=== PATIENT | male | born 1965 | race Caucasian/White ===

== ENCOUNTER 2019-11-16 15:32 | Emergency (ER) | payer SELFPAY ==
--- NOTE | ~2019-11-16 | XR_ITS ---
EXAMINATION: XR chest 1V portable EXAM DATE: 11/16/2019 16:05 INDICATION: Right-sided facial numbness, neck pain. TECHNIQUE: Frontal PA chest x-ray. Comparison is made to prior examination from 04/15/2006. FINDINGS: The lungs are clear. There are no pleural effusions. The cardiomediastinal silhouette is within normal limits. There is no pneumothorax suspected. The bones and soft tissues are unremarkab le. IMPRESSION: Unremarkable chest x-ray exam. Reviewed, dictated and finalized at location A. R HAND
--- NOTE | ~2019-11-16 | CT_ITS ---
EXAMINATION: CT brain wo con EXAM DATE: 11/16/2019 15:59 INDICATION: Right-sided facial droop. Right hemiparesis. TECHNIQUE: Spiral CT of the head was performed without contrast. Axial, coronal and sagittal images were reviewed. The dose-length product (DLP) for this examination was 681.00 mGy-cm. The exposure w as tailored according to patient size, and iterative reconstruction (ASIR) was used as additional dos e reduction technique. There is no prior study for comparison. FINDINGS: There is no acute intraparenchymal hemorrhage. No evidence of intraparenchymal brain mass lesion. No evidence of acute infarction. There is no mass effect or midline shift. The ventricles are normal in size. There are no extra-axial collections. There are no acute calvarial fractures. T he orbits are unremarkable. Soft tissue is unremarkable. The visualized sinuses and mastoid air althea ls are well aerated. IMPRESSION: 1. No acute intracranial findings. Reviewed, dictated and finalized at location A. /SENIOR RESEARCH ASSOCIATE
[2019-11-16 15:38] VITALS: BP 146/101; PULSE 111; RESP 20; TEMP 36.4; O2SAT 96
--- NOTE | 2019-11-16 15:43 | ECG_ITS ---
Measurements Intervals [place] Rate: 106 P: 53 NE: 161 QRS: 121 QRSD: 81 T: 55 QT: 303 QTc: 403 Interpretive Statements SINUS TACHYCARDIA RIGHT AXIS DEVIATION CANNOT RULE OUT SEPTAL INFARCT, AGE INDETERMINATE ABNORMAL ECG Electronically Signed On 11-16-2019 17:35:03 POWER PLANT OPERATIONS MANAGER by Mark Renner D.O.
[2019-11-16 15:56] LABS: Basophils Absolute Auto 0.1 K/mm3 (0.0-0.1); Basophils Percent Auto 0.8 % (0.2-1.2); Eosinophils Absolute Auto 0.3 K/mm3 (0-0.3); Eosinophils Percent Auto 4.1 % (0-4.4); Hematocrit 52.6 % (42.0-52.0); Hemoglobin 17.4 g/dL (14.0-18.0); Immature Granulocyte Absolute 0.05 K/mm3 (0.00-0.031); Immature Granulocyte Percent A 0.8 % (0-0.5); Lymphocytes Absolute Auto 1.28 K/mm3 (0.9-3.2); Lymphocytes Percent Auto 20.3 % (18.3-44.2); Mean Corpuscular HGB Conc 33.1 g/dl (32-36); Mean Corpuscular Hemoglobin 31.2 pg (26-34); Mean Corpuscular Volume 94.4 fl (80-100); Mean Platelet Volume 8.9 fl (7.4-10.4); Monocytes Absolute Auto 0.5 K/mm3 (0.1-0.6); Monocytes Percent Auto 7.3 % (2.6-8.5); Neutrophils Absolute Auto 4.2 K/mm3 (1.3-6.7); Neutrophils Percent Auto 66.7 % (45.5-73.1); Platelet Count Result 151 k/mm3 (150-375); Red Blood Count 5.57 M/mm3 (4.6-6.20); Red Cell Distribution Width 13.3 % (11.5-14.5); White Blood Count 6.3 K/mm3 (4.5-10.0)
[2019-11-16 16:08] LABS: INR 1.1; Prothrombin Time 13.5 Seconds (11.1-14.7)
[2019-11-16 16:09] LABS: Partial Thromboplastin Time 26.4 SECONDS (22.3-36.8)
[2019-11-16 16:12] LABS: Blood Urea Nitrogen 8 mg/dL (9-20); Calcium 8.8 mg/dL (8.4-10.2); Carbon Dioxide 33 mmol/L (22-30); Chloride 97 mmol/L (98-107); Estimated CRCL calculation 117 ml/min; Estimated Glomerular Filt Rate > 60; Glucose 131 mg/dL (75-110); Potassium 4.3 mmol/L (3.4-5.0); Sodium 138 mmol/L (137-145)
[2019-11-16 16:24] LABS: Troponin I < 0.012 ng/mL (0.000-0.034)
--- NOTE | 2019-11-16 19:16 | ED.NEUROSD ---
HPI - Neuro Symptoms/Deficit General Chief Complaint: Neuro Symptoms/Deficit Stated Complaint: having a small stroke Time Seen by Provider: 11/16/19 19:05 Source: patient and RN notes reviewed Mode of arrival: ambulatory Limitations: no limitations History of Present Illness HPI Narrative: Pt is a 54 y/o male presenting to the ED c/o facial droop. Pt reports he first developed rt sided neck pain last Saturday along with watery eyes. Pt states he then developed a rt sided facial that worsened earlier today. Pt denies any focal weakness or numbness or tingling. He denies focal deficits. 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 Onset (ago): day(s) (2) Location: right face Associated symptoms: other (Rt sided neck pain) Related Data Allergies Allergy/AdvReac Type Severity Reaction Status Date / Time No Known Allergies Allergy Unknown Verified 12/09/11 07:04 Review of Systems Review of Systems: All systems reviewed & are unremarkable except as noted in HPI and below Musculoskeletal: Musculoskeletal: Reports neck pain (Rt sided) Integumentary/Breasts: Skin/Breast: Denies sores Neurologic: Denies focal weakness, Denies numbness, Denies weakness and Reports other (Rt sided facial droop) PMFSH Past Medical History Medical History No significant past medical history Surgical History Surgical History History of tonsillectomy Family History Family History Other Family history of coronary artery disease Family history of type 1 diabetes mellitus Hypertension Social History Social History Smoking status: Never smoker Alcohol intake: current Exam Narrative: Exam Narrative: GENERAL: Well-appearing, well-nourished, and in no acute distress. HEAD: Normocephalic, atraumatic EYES: PERRLA and EOMI, conjunctiva clear without discharge EARS: TM's clear bilaterally without erythema or dullness NOSE: Nares clear, no rhinorrhea or epistaxis THROAT:Mucous membranes moist, Oropharynx normal without erythema, exudate, peritonsillar swelling or fluctuance NECK: Supple, without lymphadenopathy or mass RESPIRATORY: No respiratory distress, Airway patent, Respirations non-labored, Clear to auscultation without rales, rhonchi or wheeze HEART: Regular rate and rhythm. No murmur heard. Normal peripheral pulses. ABDOMEN: Soft, nontender, nondistended, normal active bowel sounds. No masses. No rebound or guarding, No organomegaly. EXTREMITIES: Diffuse edema to all extremities, normal strength with full range of motion. SKIN: Warm, dry, normal color without rash NEURO: Alert and oriented x3. right facial droop including upper and lower, No focal deficits. PSYCH: Normal mood and affect. Neuro: General: patient oriented x3, gait normal, moves all extremities and no focal motor deficits Cranial nerves: Yes Equal, round and reactive pupils present and Yes Bilaterally intact EOM present Speech: normal speech Motor exam (neuro): 5/5 motor strength present throughout Course Vital Signs Vital signs: Vital Signs Temperature 97.6 F 11/16/19 15:38 Pulse Rate 111 H 11/16/19 15:38 Respiratory Rate 20 11/16/19 15:38 Blood Pressure 146/101 H 11/16/19 15:38 Pulse Oximetry 96 11/16/19 15:38 Temperature 97.6 F 11/16/19 15:38 Pulse Rate 94 11/16/19 19:30 Respiratory Rate 20 11/16/19 19:30 Blood Pressure 131/85 11/16/19 19:30 Pulse Oximetry 94 11/16/19 19:30 MDM - Neuro Symptoms/Deficit Lab Data Attestation: I reviewed the patient's lab results. Result diagrams: 11/16/19 15:50 11/16/19 15:50 Labs: Lab Results 11/16/19 11/16/19 11/16/19 Range
[2019-11-16 19:30] VITALS: BP 131/85; PULSE 94; RESP 20; O2SAT 94
== END 2019-11-16 19:55 | disposition home or self-care (01) ==
PROVIDERS: Family Medicine; Emergency Provider General Practice; PCP Family Medicine
DX: G51.0 Bell's palsy (principal); R00.0 Tachycardia, unspecified
CPT/HCPCS: 36415; 70450; 71045; 80048; 84484; 85025; 85610; 85730; 93005; 99284

== ENCOUNTER 2021-01-21 17:45 | Emergency (ER) | payer SELFPAY ==
--- NOTE | ~2021-01-21 | XR_ITS ---
XR knee RT 3V 01/21/2021 18:30 INDICATION: Right knee pain PROCEDURE: 4 views right knee COMPARISON: No prior studies for comparison FINDINGS: Fracture, dislocation or subluxation is not identified. No significant joint effusion. The soft tissues appear within normal limits. No foreign bodies are identified. IMPRESSION: 1: NO ACUTE BONE OR JOINT ABNORMALITY IDENTIFIED. Reviewed, dictated and finalized at location A.
[2021-01-21 17:49] VITALS: BP 162/78; PULSE 92; RESP 18; TEMP 36.4; O2SAT 98
--- NOTE | 2021-01-21 18:59 | ED.LOWEXIN ---
HPI - Extremity Injury (Lower) General Chief Complaint: Extremity Injury, Lower Stated Complaint: Right Knee Pain x3 weeks Time Seen by Provider: 01/21/21 17:54 History of Present Illness HPI Narrative: Patient is a 55-year-old male who presents ER with right knee pain. Reports has been ongoing for 3 weeks and is worse when he ambulates. He denies any trauma to the affected area. No redness or swelling. He is without fevers or chills or sweats. Reports he has some chronic back issues and prior to his knee hurting his back had been aggravated and he reports he is walking differently in an effort to alleviate discomfort in his back. That is likely what caused the pain. No previous surgery on the knee. Patient has chronic lymphedema to the lower extremities that is quite substantial. No new changes from that standpoint. Related Data Allergies Allergy/AdvReac Type Severity Reaction Status Date / Time No Known Allergies Allergy Unknown Verified 01/21/21 18:37 Review of Systems Review of Systems: All systems reviewed & are unremarkable except as noted in HPI and below Constitutional: Constitutional: Denies chills, Denies fever(s) and Denies weakness Cardiovascular: Cardiovascular: Denies chest pain, Denies rapid heart rate and Denies radiating jaw, neck or arm pain Respiratory: Respiratory: Denies cough and Denies dyspnea Musculoskeletal: Musculoskeletal: Reports back pain (chronic), Reports arthralgias, Denies joint swelling and Denies muscle cramps PMFSH Past Medical History Medical History (Updated 01/21/21 @ 19:06 by Jose Lagunas MD) Lymphedema No significant past medical history Surgical History Surgical History History of tonsillectomy Family History Family History Other Family history of coronary artery disease Family history of type 1 diabetes mellitus Hypertension Social History Social History Smoking status: Never smoker Alcohol intake: current Exam Narrative: Exam Narrative: GENERAL: Well-appearing, well-nourished, and in no acute distress. HEAD: Normocephalic, atraumatic. EXTREMITIES: Normal range of motion in the RLE without reproducible tenderness to knee. No redness. Massive lymphedema BLE with chronic skin changes. SKIN: Warm, dry, no rash. NEURO: No focal deficits. Alert and oriented x3. PSYCH: Normal mood and affect. Course Course Emergency Course: Informed of results. Will start Medrol Dosepak and give as needed Dallas for home. Needs to follow-up with a PCP for further treatment evaluation. Vital Signs Vital signs: Vital Signs Temperature 97.6 F 01/21/21 17:49 Pulse Rate 92 01/21/21 17:49 Respiratory Rate 18 01/21/21 17:49 Blood Pressure 162/78 H 01/21/21 17:49 Pulse Oximetry 98 01/21/21 17:49 Temperature 97.6 F 01/21/21 17:49 Pulse Rate 92 01/21/21 17:49 Respiratory Rate 18 01/21/21 17:49 Blood Pressure 162/78 H 01/21/21 17:49 Pulse Oximetry 98 01/21/21 17:49 MDM - Extremity Injury (Lower) Imaging Data Radiologist's impression: ITS Impressions Knee X-Ray 01/21/21 18:33 IMPRESSION: 1: NO ACUTE BONE OR JOINT ABNORMALITY IDENTIFIED. Discharge Plan Discharge Clinical Impression: Knee pain Patient Disposition: Home, Self-Care Condition: Stable Instructions: Knee Pain (ED) Additional Instructions: Your knee x-ray did not reveal any evidence of fracture or effusion to the knee. Take the Medrol dose pack to help decrease inflammation. Take [place] as needed for pain. You may elevate the leg and apply ice to help alleviate your discomfort. Follow-up with primary care for further treatment evaluation. Return the ER if you have chest pain with shortness of breath, you lose consciousness, you have additional concerns. Prescriptions: New methylprednisolone 4 mg tablet
[2021-01-21] MEDS: HYDROcodone/acetaminophen (*CRX) 10-325 MG TABLET 1 TAB PO (19:08)
[2021-01-21 19:49] VITALS: BP 153/100; PULSE 85; RESP 20; TEMP 36.7; O2SAT 99
== END 2021-01-21 19:49 | disposition home or self-care (01) ==
PROVIDERS: Emergency Provider Emergency Medicine; PCP Family Medicine
DX: M25.561 Pain in right knee (principal)
CPT/HCPCS: 73562; 99283; A9270

== ENCOUNTER 2022-12-03 18:26 | Inpatient (IN) | payer BC, SELFPAY ==
--- NOTE | ~2022-12-03 | XR_ITS ---
EXAM: XR tibia fibula RT 2V, XR tibia fibula LT 2V DATE: 12/03/2022 20:49 HISTORY: swelling . COMPARISON: Right knee 01/21/2021. FINDINGS: Normal mineralization. Moderate degenerative changes in the knees and ankles. No erosion, lytic or blastic lesion, or periosteal change. Scattered soft tissue calcifications, possibly vascula r. IMPRESSION: No acute osseous finding in the bilateral tibia or fibula. Reviewed, dictated and finalized at location K. TOLOGY TECHNICIAN IMPRESSION: No acute osseous finding in the bilateral tibia or fibula.
--- NOTE | ~2022-12-03 | XR_ITS ---
EXAMINATION: XR chest 2V Exam Date/Time: 12/03/2022 20:15 DATASTAGE ARCHITECT HISTORY: weakness Comparison: 11/16/2019. RESULT: Lines, tubes, and devices: None. Lungs and pleura: Grossly clear. Limited by body habitus. Cardiomediastinal silhouette: Stable. Other: No acute osseous or upper abdominal finding. IMPRESSION: No acute cardiopulmonary process. Reviewed, dictated and finalized at location K. STAGE ARCHITECT
[2022-12-03 18:38] VITALS: BP 139/90; PULSE 111; RESP 20; TEMP 36.9; O2SAT 94
[2022-12-03 19:03] LABS: Hematocrit 50.8 % (42.0-52.0); Mean Corpuscular HGB Conc 33.5 g/dl (32-36); Mean Corpuscular Hemoglobin 32.4 pg (26-34); Mean Corpuscular Volume 96.9 fl (80-100); Mean Platelet Volume 9.4 fl (7.4-10.4); Platelet Count Result 181 k/mm3 (150-375); Red Blood Count 5.24 M/mm3 (4.6-6.20); Red Cell Distribution Width 14.4 % (11.5-14.5); White Blood Count 15.3 K/mm3 (4.5-10.0)
[2022-12-03 19:14] LABS: Alanine Aminotransferase 26 U/L (6-50); Albumin Level 4.1 g/dL (3.5-5.1); Alkaline Phosphatase 191 U/L (38-126); Anion Gap 7 mmol/L (8-16); Aspartate Amino Transferase 50 U/L (17-59); Bilirubin,Total 2.1 mg/dL (0.2-1.3); Blood Urea Nitrogen 11 mg/dL (9-20); Calcium 8.6 mg/dL (8.4-10.2); Carbon Dioxide 29 mmol/L (22-30); Chloride 97 mmol/L (98-107); Estimated CRCL calculation 144 ml/min; Estimated Glomerular Filt Rate > 60; Glucose 155 mg/dL (65-110); Potassium 4.2 mmol/L (3.4-5.0); Sodium 133 mmol/L (137-145)
[2022-12-03 19:35] LABS: Band Neutrophils Percent 13 % (0-6); Lymphocytes Absolute Manual 1.22 K/mm3 (1.1-4.5); Monocytes Absolute Manual 1.22 K/mm3 (0.1-0.90); Monocytes Percent Manual 8 % (3-9); Neutrophils Absolute Manual 12.85 K/mm3 (1.3-6.7); Neutrophils Percent Manual 71 % (46-73); Platelet Estimate Adequate (Adequate); Schistocytes None Seen (NORMAL); Total Cells Counted 100
[2022-12-03 20:27] LABS: Lactic Acid Reflex 2.3 mmol/L (0.7-2.0)
[2022-12-03 20:57] LABS: CRP 16.9 mg/dL (<1.0)
--- NOTE | 2022-12-03 21:15 | ED.GENADULT ---
HPI - General Adult General Chief complaint: Unspecified Stated complaint: L arm redness/swelling Time Seen by Provider: 12/03/22 19:45 Source: patient and RN notes reviewed Mode of arrival: ambulatory Limitations: no limitations History of Present Illness HPI narrative: This is a 57 year old male with history of morbid obesity, lymphedema who presents for evaluation of left arm redness and swelling. Patient reports long history of bilateral leg lymphedema. He was referred to wound clinic with [facility] 4 months ago but he was unable to afford it so he stopped going. His leg are leaking fluids and they are red. He also has 2 ulcers to left calf that has been present for months. He came to ER because he developed redness and swelling to his left hand and left arm. He is worried because he has history staph infection. He also develop chills and body aches today. Related Data Home Medications Medication Instructions Recorded Confirmed No Home Medications 07/24/21 12/04/22 Allergies Allergy/AdvReac Type Severity Reaction Status Date / Time No Known Allergies Allergy Unknown Verified 12/04/22 01:42 [facility] Past Medical History Medical History BMI 60.0-69.9, adult Lymphedema No significant past medical history Screening for lipid disorders Screening for prostate cancer Surgical History Surgical History History of tonsillectomy Family History Family History (Updated 12/04/22 @ 01:41 by Lois Queen RN) Father Family history of coronary artery disease Hypertension Congestive heart failure Mother Family history of coronary artery disease Hypertension Other Family history of type 1 diabetes mellitus Social History Social History Smoking status: Never smoker Second hand tobacco smoke exposure: Yes Alcohol intake: current Drinks per week: 3 Substance use: never Substance use type: does not use Lack of Transportation: No Lack of Food: Never True Current Housing: I Have Housing Concerned About Future Housing: No Difficulty Paying Gas/Electric Bills: No Difficulty Paying for Meds: No Currently Unemployed: No Education: High School Diploma/GED Difficulty w/ Childcare or Family Care: No Spiritual care concerns: No Exam Const: General: cooperative and obese Nutritional Appearance: obese morbidly obese Orientation/consciousness: patient oriented x3 Limitations: no limitations HENMT: Head: normal to inspection Face and sinus: normal facial exam and face symmetric Mouth: Yes Normal oral and palatal mucosa present, Yes lip normal, Yes oropharynx normal and Yes moist mucous membranes Resp: Effort & Inspection: normal respiratory effort and able to speak in complete sentences Auscultation: clear to auscultation bilaterally Cardio: Jugular venous distension: no JVD Rate: tachycardic Rhythm: regular rhythm GI: GI Palp: Yes Soft to palpation and No Tenderness to palpation present (GI) Skin: Other: bilateral lower extremity with severe lymphedema, both legs with chronic skin changes thickening with venous stasis dermatitis with areas of erythema with leaking yellow, serous fluid, there are 2 ulcerations to left calf, left upper xtremity with left hand and left forearm erythema , swelling with streaking up arm to axilla Neuro: General: patient oriented x3, moves all extremities and no meningeal signs Cranial nerves: Yes CN's II-XII intact bilaterally Motor exam (neuro): 5/5 motor strength present throughout Extrem: General: full ROM Right upper extremity: edema (bilateral lymphedema) Other: left hand and left fore arm swelling with erythema , erythematous streaking up his left axilla;; Course Reevaluation(s) Reevaluation #1: Patient understands that he will be admitted for IV antibiotics. Aly
[2022-12-03] MEDS: HYDROcodone/acetaminophen (*CRX) 5-325 MG TABLET 1 TAB PO (22:52)
[2022-12-03 23:15] LABS: Reflex Lactic Acid Yes or No Add Lactic
[2022-12-03 23:19] VITALS: BP 150/72; PULSE 102; RESP 16; O2SAT 98
[2022-12-03] MEDS: SODIUM CHLORIDE 0.9% IV 1,000 ML 999 ML IV CONT (23:32)
[2022-12-03 23:33] LABS: Appearance Urine Clear (Clear); Bacteria Urine None Seen /hpf; Bilirubin Urine 1+ (Negative); Blood Urine Negative (Negative); Color Urine Dark Yellow (Yellow); Glucose Urine UA Negative (Negative); Ketones Urine Trace mg/dL (Negative); Leukocyte Esterase Ur Trace LEU/UL (Negative); Nitrate Urine Negative (Negative); Protein Urine 1+ mg/dL (Negative); RBC Urine 0-2 /hpf (0-2); Specific Grav Ur 1.026 (1.001-1.035); Squamous Epithelial Cell Urine None seen /hpf (Few); WBC Urine 0-5 /hpf; pH Urine 7.5 (5.0-9.0)
[2022-12-03 23:38] LABS: Add Urine Microscopic? YES
[2022-12-04 00:35] VITALS: BP 151/78; PULSE 100; RESP 16; O2SAT 94
[2022-12-04 01:00] VITALS: BP 154/85; PULSE 105; RESP 20; TEMP 37.1; O2SAT 98
--- NOTE | 2022-12-04 01:38 | ADMGEN ---
This patient, Madhu Leigh, was admitted to Medical Room 348-. Patient/family oriented to hospital policies and general routines including ID bracelet, bed and alarms, visiting hours, pain management, procedures, bathroom and other care routines, personal items, smoking policy, room service/diet, and visiting hours. Information on how to activate the Rapid Response Team has been discussed. Patient/Family are encouraged to report perceived risks to care and to ask questions if they do not understand what they are told or what they should do.
[2022-12-04 01:53] VITALS: BMI 62.4
[2022-12-04 01:57] VITALS: PULSE 105; RESP 20; O2SAT 98
[2022-12-04 02:18] LABS: Lactic Acid 1.4 mmol/L (0.7-2.0)
[2022-12-04 06:00] VITALS: BP 147/59; PULSE 105; RESP 18; TEMP 36.9; O2SAT 94
--- NOTE | 2022-12-04 06:00 | ECHO_ITS ---
Patient Info Name: Madhu Leigh Age: 57 years : 1965 Gender: Male Ht: 67 in Wt: 400 lbs BSA: 3.05 m2 HR: 110 bpm BP: 147 / 59 mmHg Technical Quality: Good Exam Date: 12/04/2022 2:13 PM Exam Location: [facility] Patient Status: Inpatient Admit Date: 12/03/2022 Staff Ordering Physician: Shasta Hopper MD Grain Combine Driver: Robby Proctor, [place]UGUST[place], RT Attending Provider: Arlyn Montano DO Referring Physician: Ruchi MCCLURE; Exam Type: CA echo dop color flow w con Study Info Indications R60.9 - Edema, unspecified Complete two-dimensional, color flow and Doppler transthoracic echocardiogram is performed with contrast to opacify the left ventricle and to improve the deliniation of the left ventricle endocardial borders. Summary 1. Left ventricular chamber dimension is normal. 2. Definity contrast administered improved wall motion interpretation. 3. Left ventricular systolic function is normal, estimated at 60-65%. 4. There is mild concentric increased left ventricular wall thickness. 5. The left ventricular diastolic function is abnormal. 6. E/e' 12 is mildly elevated. Left Ventricle E/e' 12 is mildly elevated. Definity contrast administered improved wall motion interpretation. Left ventricular chamber dimension is normal. Left ventricular systolic function is normal, estimated at 60-65%. There is mild concentric increased left ventricular wall thickness. The left ventricular diastolic function is abnormal. Right Ventricle Right ventricular systolic function is normal and with normal TAPSE 2.7 cm. Right ventricular chamber dimension is normal. Left Atria Left atrial chamber dimension is normal. Right Atria Right atrial chamber dimension is normal. Aortic Valve The aortic valve is probable trileaflet. There is no aortic valve stenosis. There is no aortic valve regurgitation. Pulmonic Valve There is no pulmonic regurgitation. Mitral Valve There is no mitral valve stenosis. There is no mitral valve regurgitation. Tricuspid Valve There is no tricuspid valve regurgitation. Pericardium/Pleural There is no pericardial effusion. Inferior Vena Cava Normal inferior vena cava with >50% collapse upon inspiration consistent with normal right atrial pressure, 5 mmHg. Aorta The aortic root size at the sinus of Valsalva is normal. Left Ventricular Outflow Tract Name Value Normal LVOT 2D LVOT Diameter 2.20 cm LVOT Doppler LVOT Peak Gradient 9 mmHg LVOT Mean Gradient 5 mmHg LVOT VTI 25.18 cm LVOT VTI/AV VTI Ratio 0.86 LVOT Stroke Volume 95.95 ml LVOT CO 10.69 l/min LVOT CI 3.51 L/min/m2 Mitral Valve Name Value Normal MV Doppler
[2022-12-04 06:17] LABS: Hematocrit 47.1 % (42.0-52.0); Hemoglobin 15.4 g/dL (14.0-18.0); Mean Corpuscular HGB Conc 32.7 g/dl (32-36); Mean Corpuscular Hemoglobin 31.9 pg (26-34); Mean Corpuscular Volume 97.5 fl (80-100); Platelet Count Result 144 k/mm3 (150-375); Red Blood Count 4.83 M/mm3 (4.6-6.20); Red Cell Distribution Width 14.3 % (11.5-14.5)
[2022-12-04 06:30] LABS: Alanine Aminotransferase 25 U/L (6-50); Albumin Level 3.5 g/dL (3.5-5.1); Alkaline Phosphatase 140 U/L (38-126); Anion Gap 3 mmol/L (8-16); Aspartate Amino Transferase 46 U/L (17-59); Bilirubin,Total 2.1 mg/dL (0.2-1.3); Blood Urea Nitrogen 10 mg/dL (9-20); Calcium 7.7 mg/dL (8.4-10.2); Carbon Dioxide 32 mmol/L (22-30); Chloride 99 mmol/L (98-107); Estimated CRCL calculation 163 ml/min; Estimated Glomerular Filt Rate > 60; Glucose 121 mg/dL (65-110); Potassium 3.9 mmol/L (3.4-5.0); Sodium 134 mmol/L (137-145)
[2022-12-04 07:56] LABS: Band Neutrophils Percent 11 % (0-6); Eosinophils Absolute Manual 0.12 K/mm3 (0.02-0.5); Eosinophils Percent Manual 1 % (0-4); Lymphocytes Absolute Manual 0.48 K/mm3 (1.1-4.5); Monocytes Percent Manual 5 % (3-9); Neutrophils Percent Manual 79 % (46-73); Platelet Estimate Adequate (Adequate); Total Cells Counted 100
[2022-12-04 07:57] LABS: Schistocytes None Seen (NORMAL)
[2022-12-04 08:41] LABS: Glucose Point of Care 135 mg/dl (65-105)
[2022-12-04 12:28] LABS: Glucose Point of Care 141 mg/dl (65-105)
[2022-12-04 14:00] VITALS: BP 128/62; PULSE 107; RESP 22; TEMP 36.3; O2SAT 96
[2022-12-04] MEDS: PERFLUTREN LIPID MICROSPHERES 1.5 ML VIAL DILUTED TO 10 ML TOTAL VOLUME IV PUSH (14:27)
--- NOTE | 2022-12-04 14:28 | IVDEFINITY ---
Prior to administration of IV Definity the patient was educated on the risks and benefits of the imaging enhancing agent including potential adverse side effects. The patient verbalized understanding. Allergies were verified. No exclusion criteria were identified and at least one of the following inclusion criteria were met: 1) physician request, 2) patient technically difficult to image (per the [place] [employer] guidelines of two or more segments not discernable within the apical view), or 3) questionable left ventricular function. ?
--- NOTE | 2022-12-04 15:04 | PM.IMHP ---
H&P: HPI History of Present Illness Date/Time: 12/04/22 15:04 Chief Complaint: Evaluation of left arm redness and swelling. Narrative: ED-HPI narrative: This is a 57 year old male with history of morbid obesity, lymphedema who presents for evaluation of left arm redness and swelling. ? Patient reports long history of bilateral leg lymphedema.? ? He was referred to wound clinic with [facility] 4 months ago but he was unable to afford it so he stopped going.? His leg are leaking fluids and they are red. He also has 2 ulcers to left calf that has been present for months. ? He came to ER because he developed redness and swelling to his. patient is morbidly obese with BMI of 52 his left arm, wrist and hand are edematous, erythematous with red streak running on medial aspect of upper arm close to axialla, patient has difficulty with ROM of the arm, suspect patient has a cellulitis patient was started on Zosyn and vancomycin, blood cultures are ordered, will continue to monitor will have a PT OT evaluate the patient and further recommendation to follow. patient admitted inpatient with cellulitis of upper extremity the lymphoadenitis, patient will stay in the hospital for 2 midnights Review of Systems Review of Systems: All systems reviewed & are unremarkable except as noted in HPI and below Constitutional: Constitutional: Denies chills, Denies fever(s) and Denies weakness Cardiovascular: Cardiovascular: Denies chest pain, Denies rapid heart rate and Denies radiating jaw, neck or arm pain Respiratory: Respiratory: Denies cough and Denies dyspnea Musculoskeletal: Musculoskeletal: Reports back pain (chronic), Reports arthralgias, Denies joint swelling and Denies muscle cramps PMFSH Past Medical History Medical History BMI 60.0-69.9, adult Lymphedema No significant past medical history Screening for lipid disorders Screening for prostate cancer Surgical History Surgical History History of tonsillectomy Family History Family History (Updated 12/04/22 @ 01:41 by Lois Queen RN) Father Family history of coronary artery disease Hypertension Congestive heart failure Mother Family history of coronary artery disease Hypertension Other Family history of type 1 diabetes mellitus Social History Social History Smoking status: Never smoker Second hand tobacco smoke exposure: Yes Alcohol intake: current Drinks per week: 3 Substance use: never Substance use type: does not use Lack of Transportation: No Lack of Food: Never True Current Housing: I Have Housing Concerned About Future Housing: No Difficulty Paying Gas/Electric Bills: No Difficulty Paying for Meds: No Currently Unemployed: No Education: High School Diploma/GED Difficulty w/ Childcare or Family Care: No Spiritual care concerns: No Meds Home Medications and Allergies Home Medications Medication Instructions Recorded Confirmed Type No Home Medications 07/24/21 12/04/22 History Allergies Allergy/AdvReac Type Severity Reaction Status Date / Time No Known Allergies Allergy Unknown Verified 12/04/22 01:42 Vital Signs Vital Signs - 24 hr 12/03/22 18:38 12/03/22 23:19 12/04/22 00:35 Temperature 98.5 F Pulse Rate 111 H 102 H 100 Respiratory Rate 20 16 16 Blood Pressure 139/90 150/72 H 151/78 H Pulse Oximetry 94 98 94 Oxygen Delivery Room Air 12/04/22 01:57 12/04/22 01:00 12/04/22 06:00 Temperature 98.7 F 98.4 F Pulse Rate 105 H 105 H 105 H Respiratory Rate 20 20 18 Blood Pressure 154/85 H 147/59 H Pulse Oximetry 98 98 94 Oxygen Delivery Room Air 12/04/22 08:00 12/04/22 14:00 Temperature 97.4 F L Pulse Rate 107 H Respiratory Rate 22 H Blood Pressure 128/62 Pulse Oximetry 96 Oxygen Delivery Room Air Exam Narra
[2022-12-04] MEDS: SILVERGEL (ELTA) 45 ML 1 APPLIC TOPICAL (16:34)
[2022-12-04 16:45] LABS: Glucose Point of Care 137 mg/dl (65-105)
[2022-12-04 19:59] VITALS: BP 130/63; PULSE 105; RESP 20; TEMP 36.6; O2SAT 94
[2022-12-04 21:08] LABS: Glucose Point of Care 117 mg/dl (65-105)
[2022-12-04] MEDS: HYDROcodone/acetaminophen (*CRX) 5-325 MG TABLET 1 TAB PO (23:31)
[2022-12-05 05:11] VITALS: BP 134/68; PULSE 107; RESP 20; TEMP 36.6; O2SAT 92
[2022-12-05] MEDS: HYDROcodone/acetaminophen (*CRX) 5-325 MG TABLET 1 TAB PO ×4 (08:31→21:41)
[2022-12-05] MEDS: SILVERGEL (ELTA) 45 ML 1 APPLIC TOPICAL (08:32)
[2022-12-05 08:57] LABS: Glucose Point of Care 150 mg/dl (65-105)
[2022-12-05 09:05] LABS: Hematocrit 48.4 % (42.0-52.0); Hemoglobin 15.6 g/dL (14.0-18.0); Mean Corpuscular HGB Conc 32.2 g/dl (32-36); Mean Corpuscular Hemoglobin 32.6 pg (26-34); Mean Platelet Volume 9.2 fl (7.4-10.4); Platelet Count Result 168 k/mm3 (150-375); Red Blood Count 4.79 M/mm3 (4.6-6.20); Red Cell Distribution Width 14.5 % (11.5-14.5); White Blood Count 11.2 K/mm3 (4.5-10.0)
[2022-12-05 09:14] LABS: Anion Gap 4 mmol/L (8-16); Blood Urea Nitrogen 11 mg/dL (9-20); Calcium 8.1 mg/dL (8.4-10.2); Carbon Dioxide 31 mmol/L (22-30); Chloride 99 mmol/L (98-107); Estimated CRCL calculation 163 ml/min; Estimated Glomerular Filt Rate > 60; Glucose 154 mg/dL (65-110); Magnesium 2.1 mg/dL (1.6-2.3); Potassium 3.7 mmol/L (3.4-5.0); Sodium 134 mmol/L (137-145)
[2022-12-05 09:53] LABS: Vancomycin Trough 9.7 ug/mL (10.0-20.0)
[2022-12-05 12:13] LABS: Glucose Point of Care 160 mg/dl (65-105)
--- NOTE | 2022-12-05 12:36 | PM.IMPN ---
Progress Note: A&P Assessment and Plan (1) Lymphedema: Code(s): I89.0 - Lymphedema, not elsewhere classified Status: Acute Assessment and Plan: PT OT to evaluate (2) Cellulitis of left upper extremity: Code(s): L03.114 - Cellulitis of left upper limb Status: Acute Assessment and Plan: iv abx await sens (3) BMI 60.0-69.9, adult: Code(s): Z68.44 - Body mass index [BMI] 60.0-69.9, adult Status: Acute Assessment and Plan: will consult dietitian Subjective Date/time seen: 12/05/22 12:36 no new complaints Exam Narrative: morbidly obese Patient is comfortable, NAD HEENT: eyes are clear and none icteric LUNGS: normal respiratory effort ABD: obese distended Lower extremities: edema SKIN: nonjaundiced, left upper arm, had and wrist edema, erythema, and red streak along medial aspect to axilla. Neuro: grossly intact. Objective Data Vital Signs Vital Signs: Vital Signs - 24 hr 12/04/22 14:00 12/04/22 19:59 12/05/22 05:11 Temperature 97.4 F L 97.8 F 98 F Pulse Rate 107 H 105 H 107 H Respiratory Rate 22 H 20 20 Blood Pressure 128/62 130/63 134/68 Pulse Oximetry 96 94 92 Oxygen Delivery 12/05/22 08:30 Temperature Pulse Rate Respiratory Rate Blood Pressure Pulse Oximetry Oxygen Delivery Room Air Intake/Output Intake/Output: Intake & Output 12/02/22 12/03/22 12/04/22 12/05/22 23:59 23:59 23:59 23:59 Intake Total 300 4110 1340 Output Total 1750 600 Balance 300 2360 740 Meds/Results Medications: Active Medications Generic Name Dose Route Start Last Admin Trade Name Freq PRN Reason Stop Dose Admin Hydrocodone Bitart/Acetaminophen 1 tab 12/04/22 22:35 12/05/22 08:31 Hydrocodone/Acetaminophen (*Crx) 5-325 Mg Tablet PO 1 tab Q4H PRN Administration Pain Rated 4-6 Piperacillin/Tazobactam/Dextrose 3.375 gm in 50 mls @ 100 mls/hr 12/04/22 03:00 12/05/22 09:02 Zosyn 3.375 Gm/D5w 50ml Pm IVPB 12/05/22 17:00 Infused Q6H MACK Infusion Piperacillin/Tazobactam/Dextrose 3.375 gm in 50 mls @ 100 mls/hr 12/05/22 21:00 Zosyn 3.375 Gm/Ns 50 Ml IVPB Q6H MACK Vancomycin HCl 1,500 mg in 500 mls @ 250 mls/hr 12/05/22 10:00 12/05/22 10:54 Vancomycin 1,500 Mg/D5w 500 Ml IVPB 250 mls/hr Q8H MACK Administration Miconazole Nitrate 1 applic 12/04/22 09:00 12/05/22 08:32 Miconazole 2% Antifungal Ointment 56 Gm TOPICAL 1 applic DAILY MACK Administration Ondansetron HCl 4 mg 12/03/22 22:57 Ondansetron Inj 4 Mg/2 Ml Vial IV PUSH Q4H PRN Nausea Silver Nitrate 1 applic 12/04/22 09:00 12/05/22 08:32 Silvergel (Elta) 45 Ml TOPICAL 1 applic DAILY MACK Administration Radiology Results: ITS Impressions Chest X-Ray 12/03/22 21:08 IMPRESSION: No acute cardiopulmonary process. Tibia/Fibula X-Ray 12/03/22 21:12 IMPRESSION: No acute osseous finding in the bilateral tibia or fibula. Tibia/Fibula X-Ray 12/03/22 21:12 IMPRESSION: No acute osseous finding in the bilateral tibia or fibula. Labs Labs: Laboratory Results - last 24 hr 12/04/22 12/04/22 12/05/22 16:43 20:03 08:52 WBC RBC Hgb Hct MCV MCH MCHC RDW Plt Count MPV Sodium Potassium Chloride Carbon Dioxide Anion Gap BUN Creatinine Estim Creat Clear Calc Estimated GFR Glucose POC Capillary Glucose 137 H 117 H 150 H Calcium Magnesium Vancomycin Trough 12/05/22 12/05/22 12/05/22 08:58 08:58 08:58 WBC 11.2 H RBC 4.79 Hgb 15.6 Hct 48.4 MCV 101.0 H MCH 32.6 MCHC 32.2 RDW 14.5 Plt Count 168 MPV 9.2 Sodium 134 L Potassium 3.7 Chloride 99 Carbon Dioxide 31 H Anion Gap 4 L BUN 11 Creatinine 0.70 Estim Creat Clear Calc 163 Estimated GFR > 60 Glucose 154 H POC Capillary Glucose Calcium 8.1 L Magnesium 2.1 Vanc
[2022-12-05 14:00] VITALS: BP 159/74; PULSE 106; RESP 18; TEMP 36.3; O2SAT 92
[2022-12-05 17:10] LABS: Glucose Point of Care 201 mg/dl (65-105)
[2022-12-05 20:00] VITALS: PULSE 99; RESP 22; O2SAT 93
[2022-12-05 20:53] VITALS: BP 153/66; PULSE 99; RESP 22; TEMP 36.6; O2SAT 93
[2022-12-05] MEDS: PIPERACILLN/TAZ 3.375GM/NS50ML 3.375 GM/50 ML BAG IVPB (21:10)
[2022-12-05 21:32] LABS: Glucose Point of Care 134 mg/dl (65-105)
[2022-12-06] VITALS (22 sets, daily range): BP systolic 129–180; BP diastolic 62–95; PULSE 92–121; RESP 16–20; TEMP 36.3–37.4; O2SAT 91–100
[2022-12-06] MEDS: HYDROcodone/acetaminophen (*CRX) 5-325 MG TABLET 1 TAB PO ×4 (01:55→20:58)
[2022-12-06] MEDS: PIPERACILLN/TAZ 3.375GM/NS50ML 3.375 GM/50 ML BAG IVPB ×2 (04:10→09:10)
[2022-12-06 08:33] LABS: Glucose Point of Care 124 mg/dl (65-105)
[2022-12-06] MEDS: SILVERGEL (ELTA) 45 ML 1 APPLIC TOPICAL (09:10)
[2022-12-06 09:46] LABS: Basophils Percent Auto 0.5 % (0.2-1.2); Eosinophils Absolute Auto 0.5 K/mm3 (0-0.3); Eosinophils Percent Auto 5.9 % (0-4.4); Hematocrit 47.9 % (42.0-52.0); Hemoglobin 15.3 g/dL (14.0-18.0); Immature Granulocyte Absolute 0.05 K/mm3 (0.00-0.031); Immature Granulocyte Percent A 0.6 % (0-0.5); Lymphocytes Absolute Auto 0.95 K/mm3 (0.9-3.2); Lymphocytes Percent Auto 11.5 % (18.3-44.2); Mean Corpuscular HGB Conc 31.9 g/dl (32-36); Mean Corpuscular Hemoglobin 31.9 pg (26-34); Mean Corpuscular Volume 99.8 fl (80-100); Mean Platelet Volume 9.1 fl (7.4-10.4); Monocytes Percent Auto 11.5 % (2.6-8.5); Neutrophils Absolute Auto 5.8 K/mm3 (1.3-6.7); Platelet Count Result 179 k/mm3 (150-375); Red Cell Distribution Width 14.6 % (11.5-14.5); White Blood Count 8.3 K/mm3 (4.5-10.0)
[2022-12-06 09:52] LABS: Anion Gap 3 mmol/L (8-16); Blood Urea Nitrogen 10 mg/dL (9-20); Calcium 8.1 mg/dL (8.4-10.2); Carbon Dioxide 32 mmol/L (22-30); Chloride 96 mmol/L (98-107); Estimated CRCL calculation 163 ml/min; Estimated Glomerular Filt Rate > 60; Glucose 115 mg/dL (65-110); Magnesium 2.1 mg/dL (1.6-2.3); Potassium 3.9 mmol/L (3.4-5.0); Sodium 131 mmol/L (137-145)
[2022-12-06 09:57] LABS: Vancomycin Trough 12.7 ug/mL (10.0-20.0)
--- NOTE | 2022-12-06 11:29 | PM.IMPN ---
Progress Note: A&P Assessment and Plan (1) Lymphedema: Code(s): I89.0 - Lymphedema, not elsewhere classified Status: Acute Assessment and Plan: PT OT to evaluate (2) Cellulitis of left upper extremity: Code(s): L03.114 - Cellulitis of left upper limb Status: Acute Assessment and Plan: iv abx await sens + blood cultures as well Surgery to eval (3) BMI 60.0-69.9, adult: Code(s): Z68.44 - Body mass index [BMI] 60.0-69.9, adult Status: Acute Assessment and Plan: will consult dietitian Subjective Date/time seen: 12/06/22 11:29 No improvement in left hand. Exam Narrative: morbidly obese Patient is comfortable, NAD HEENT: eyes are clear and none icteric LUNGS: normal respiratory effort ABD: obese distended Lower extremities: edema SKIN: nonjaundiced, left upper arm, had and wrist edema, erythema, and red streak along medial aspect to axilla. Neuro: grossly intact. Objective Data Vital Signs Vital Signs: Vital Signs - 24 hr 12/05/22 14:00 12/05/22 20:53 12/05/22 20:00 Temperature 97.3 F L 97.9 F Pulse Rate 106 H 99 99 Respiratory Rate 18 22 H 22 H Blood Pressure 159/74 H 153/66 H Pulse Oximetry 92 93 93 Oxygen Delivery Room Air 12/06/22 05:21 12/06/22 09:00 Temperature 97.9 F Pulse Rate 98 Respiratory Rate 18 Blood Pressure 145/64 H Pulse Oximetry 92 Oxygen Delivery Room Air Intake/Output Intake/Output: Intake & Output 12/03/22 12/04/22 12/05/22 12/06/22 23:59 23:59 23:59 23:59 Intake Total 300 4110 3340 1320 Output Total 1750 600 Balance 300 2360 2740 1320 Meds/Results Medications: Active Medications Generic Name Dose Route Start Last Admin Trade Name Freq PRN Reason Stop Dose Admin Hydrocodone Bitart/Acetaminophen 1 tab 12/04/22 22:35 12/06/22 05:56 Hydrocodone/Acetaminophen (*Crx) 5-325 Mg Tablet PO 1 tab Q4H PRN Administration Pain Rated 4-6 Piperacillin/Tazobactam/Dextrose 3.375 gm in 50 mls @ 100 mls/hr 12/05/22 21:00 12/06/22 09:40 Zosyn 3.375 Gm/Ns 50 Ml IVPB Infused Q6H MACK Infusion Vancomycin HCl 1,750 mg in 500 mls @ 250 mls/hr 12/06/22 11:00 Vancomycin 1,750 Mg/D5w 500 Ml IVPB Q8H MACK Miconazole Nitrate 1 applic 12/04/22 09:00 12/06/22 09:10 Miconazole 2% Antifungal Ointment 56 Gm TOPICAL 1 applic DAILY MACK Administration Ondansetron HCl 4 mg 12/03/22 22:57 Ondansetron Inj 4 Mg/2 Ml Vial IV PUSH Q4H PRN Nausea Silver Nitrate 1 applic 12/04/22 09:00 12/06/22 09:10 Silvergel (Elta) 45 Ml TOPICAL 1 applic DAILY MACK Administration Radiology Results: ITS Impressions Chest X-Ray 12/03/22 21:08 IMPRESSION: No acute cardiopulmonary process. Tibia/Fibula X-Ray 12/03/22 21:12 IMPRESSION: No acute osseous finding in the bilateral tibia or fibula. Tibia/Fibula X-Ray 12/03/22 21:12 IMPRESSION: No acute osseous finding in the bilateral tibia or fibula. Labs Labs: Laboratory Results - last 24 hr 12/05/22 12/05/22 12/05/22 12:10 17:05 20:57 WBC RBC Hgb Hct MCV MCH MCHC RDW Plt Count MPV Immature Gran % (Auto) Neut % (Auto) Lymph % (Auto) [place] % (Auto) Eos % (Auto) Baso % (Auto) Lymph # (Auto) [place] # (Auto) Eos # (Auto) Baso # (Auto) Abs Immat Gran (auto) Absolute Neuts (auto) Absolute Nucleated RBC Nucleated RBC % Sodium Potassium Chloride Carbon Dioxide Anion Gap BUN Creatinine Estim Creat Clear Calc Estimated GFR Glucose POC Capillary Glucose 160 H 201 H 134 H Calcium Magnesium Vancomycin Trough 12/06/22 12/06/22 12/06/22 08:30 09:19 09:19 WBC RBC Hgb Hct MCV MCH MCHC RDW Plt Count MPV Immature Gran % (Auto) Neut % (Auto) Lymph % (Auto) Gladwin % (Auto) Eos % (Auto) Baso % (Auto)
--- NOTE | 2022-12-06 11:35 | PM.CNGS ---
Assessment and Plan Assessment and plan (1) Cellulitis of left upper extremity: Code(s): L03.114 - Cellulitis of left upper limb Status: Acute Assessment and Plan: Spreading left hand cellulitis now extending up the left arm regardless of broad-spectrum IV antibiotics. There is no obvious abscess on exam and no open wounds to the left upper extremity. We do not do any hand surgery and would recommend that he be evaluated by a hand surgeon. If there is no available hand surgeon to evaluate the patient here at [facility], then he would need to be transferred to a tertiary care facility where they would be available. It would probably be best to transfer to [place] where he was getting his previous lymphedema treatment if possible. Will sign off at this time and please let us know if you have any surgical questions. (2) Lymphedema: Code(s): I89.0 - Lymphedema, not elsewhere classified Status: Acute Assessment and Plan: Open ulcers of the bilateral lower extremities that appear stable. No indication for any surgical intervention. Continue local wound care and elevation of lower extremities. Could consider compression when able to tolerate with his wounds. (3) Sepsis: Code(s): A41.9 - Sepsis, unspecified organism Status: Acute (4) BMI 60.0-69.9, adult: Code(s): Z68.44 - Body mass index [BMI] 60.0-69.9, adult Status: Acute Plan I have discussed the patient's case and plan of care with Dr. Zapata. History of Present Illness Consult details Consult date: 12/06/22 Reason for consult: other (Left upper extremity cellulitis) Requesting physician: Reyes Francisco MD Narrative: This is a 57-year-old morbidly obese man with a history of lymphedema, who was admitted 3 days ago for left upper extremity cellulitis. He reports waking up 4 days ago with redness and swelling in his left hand. He denies any trauma, wound, or abrasions to the left upper extremity. Throughout the day, his redness and swelling began to spread up his lower arm. Therefore, he presented to the ER for evaluation. He additionally has lymphedema and deals with chronic intermittent ulcers on his lower extremities. He did have an x-ray of the right lower leg that showed no acute osseous finding. [place] was [place] [address] [place] admission. He was admitted to the hospitalist service and started on IV Zosyn and vancomycin. Wound care was consulted for his lower extremity wounds and lymphedema. They have been applying antifungal barrier cream and silver gel while keeping the legs open to air. His initial blood cultures showed growth of group a Streptococcus. He has since had repeat blood cultures currently no growth to date. His cellulitis has apparently continued to worsen and spread up the left upper arm. Our service was consulted today for the worsening cellulitis. He is now seen on the medical floor. He reports that his cellulitis has spread up his arm daily. He has not noticed any improvement. He has limited range of motion of his fingers and wrist due to the swelling. He is still able to have nearly full range of motion of his left elbow. Denies any wounds or drainage from his left upper extremity. He does report having an infection in the same arm about 10 years ago after having abrasions that got infected and was treated with antibiotics. He also has a history of cellulitis in his lower extremities. No previous surgeries. Review of Systems Review of Systems: All systems reviewed & are unremarkable except as noted in HPI and below Constitutional: Constitutional: Reports no additional constitutional complaints, Denies chills, Denies fatigue, Denies fever(s) and Denies headache(s) Eyes: Eyes: Reports no additional eye complaints ENT: Reports system reviewed and no additional complaints, except as documented and Denies dizziness Cardiovascular: Cardiovascular: Reports no josef
[2022-12-06 12:54] LABS: Glucose Point of Care 109 mg/dl (65-105)
[2022-12-06] MEDS: cefTRIAXone 2 GM/NS 100 ML 2 GM/100 ML BAG IVPB (12:55)
--- NOTE | 2022-12-06 14:18 | WPDCN ---
Assessment and Plan Assessment and plan (1) Cellulitis of left upper extremity: Code(s): L03.114 - Cellulitis of left upper limb Status: Acute Assessment and Plan: Increasing erythema and induration of the dorsal hand, forearm and arm the face of recent positive blood cultures for strep and improvement in laboratory markers I suspect deep fascial abscess in the dorsal hand, wrist and forearm, possibly arm. Plan The patient will be taken to the operating room this evening under general anesthesia for exploration of the dorsal hand and other parts of the upper extremity as indicated HPI Data of Consult Date/Time: 12/06/22 14:18 Requesting Physician: Arlyn Montano DO Primary Care Provider: Yinka Duval MD Consult Narrative Narrative: Madhu Leigh is a 57 year old, very pleasant, morbidly obese male who gives a history of acute onset of swelling and redness in his left dorsal hand when he awoke 4 days ago. He was not aware of any trauma to the area. Over the next day or so he noted increasing spread of this redness up his forearm. Early on he noticed some lymphangitis in the medial forearm and arm. That area has since been taken over was erythema. The patient came to the emergency room and was admitted on December 03. At that time his temperature was 98.5?, his pulse was 111, respiratory rate was 20, O2 saturation was 94 on room air. These values were essentially the same 24 hours later. His white blood cell count was 15.3, the serum glucose 155, the CRP was 6.9, the alk-phos was 191, lactic acid was 2.3. Blood culture drawn that date grew group A strep sensitive to penicillin and others. A lot of attention was focused on his legs which are extremely edematous; he has had chronic lymphedema for many years. The appearance of his legs seemed not to be affected by this change in his left arm which was diagnosed as cellulitis, rapidly spreading. He was started on vancomycin and piperacillin. His WBC and Lactic Acid have improved to normal over the next 2-3 days. The CRP has not been repeated. He is afebrile, pulse 98, not hypotensive. [facility] Past Medical History Medical History BMI 60.0-69.9, adult Lymphedema No significant past medical history Screening for lipid disorders Screening for prostate cancer Surgical History Surgical History History of tonsillectomy Family History Family History Father Family history of coronary artery disease Hypertension Congestive heart failure Mother Family history of coronary artery disease Hypertension Other Family history of type 1 diabetes mellitus Social History Social History Smoking status: Never smoker Second hand tobacco smoke exposure: Yes Alcohol intake: current Drinks per week: 3 Substance use: never Substance use type: does not use Lack of Transportation: No Lack of Food: Never True Current Housing: I Have Housing Concerned About Future Housing: No Difficulty Paying Gas/Electric Bills: No Difficulty Paying for Meds: No Currently Unemployed: No Education: High School Diploma/GED Difficulty w/ Childcare or Family Care: No Spiritual care concerns: No Meds Home Medications and Allergies Home Medications Medication Instructions Recorded Confirmed Type No Home Medications 07/24/21 12/04/22 History Allergies Allergy/AdvReac Type Severity Reaction Status Date / Time No Known Allergies Allergy Unknown Verified 12/04/22 01:42 Vital Signs Vital Signs - 24 hr 12/05/22 20:53 12/05/22 20:00 12/06/22 05:21 Temperature 97.9 F 97.9 F Pulse Rate 99 99 98 Respiratory Rate 22 H 22 H 18 Blood Pressure 153/66 H 145/64 H Pulse Oximetry 93 93 92 Oxygen Delivery Room Air
--- NOTE | 2022-12-06 14:41 | PCPTNOTE ---
Attempted PT evaluation, pt refused evaluation stating he is independent in room. Hospitalist contacted and made aware of pt decline to therapy evaluation. RN aware and confirmed pt is independent in room.
[2022-12-06 16:03] LABS: CRP 17.2 mg/dL (<1.0)
[2022-12-06] MEDS: LACTATED RINGERS 1,000 ML 30 ML IV CONT (17:00)
--- NOTE | 2022-12-06 17:04 | WPDHPUPDATE1 ---
History and Physical Update Update Date/Time: 12/06/22 17:04 History and Physical has been reviewed, including an updated exam of the patient. There are NO changes in the patient's condition. Risks, benefits, and alternatives have been discussed and questions answered. Patient agrees to proceed with procedure.
--- NOTE | 2022-12-06 17:05 | WPDHPUPDATE1 ---
History and Physical Update Update Date/Time: 12/06/22 17:05 History and Physical has been reviewed, including an updated exam of the patient. There are NO changes in the patient's condition. Risks, benefits, and alternatives have been discussed and questions answered. Patient agrees to proceed with procedure.
[2022-12-06] MEDS: LIDO 1%/EPINEPHRINE 1:100,000 20 ML VIAL INFILTRATE (17:43)
--- NOTE | 2022-12-06 18:19 | P.OP_ITS ---
Procedure Note - Detailed Date of Procedure 12/07/22 Pre-op Diagnosis Left Arm Cellulitis, Sepsis Post-op Diagnosis Same Procedure Performed I and D of the left upper extremity and hand to the deep fascia for possible abscess Surgeon Girma Sanford MD Fireman Helper Anastasiia Anesthesia General Indications Persistent swelling, erythema, tenderness with recent blood culture positive for strep group a Findings subcutaneous edema with no evidence of abscess at the deep fascial level at the dorsum of the hand, mid forearm, olecranon. Description of Procedure The patient's left upper extremity was marked with his consent in the holding area. He was then taken to the operating room where he was placed supine on the operating table. He was well positioned and padded as needed. The was given LMA intubation. The left upper extremity was prepped and draped in usual fashion. A tourniquet was on the arm but not utilized. We made initial incision over the 2nd metacarpal. The underlying tissue was very edematous. I probed to the interosseous fascia and opened that. There was no purulence there was no bulging there was no necrotic tissue and no evidence for abscess or compartment syndrome. A 2nd incision was made in the mid volar forearm where the tissue was very indurated and red. A 1 sq cm piece of skin was taken as a specimen for pathology. Again the subcutaneous tissue was probed to reveal the deep fascia and again there was no purulence no evidence of a compartment syndrome. A 3rd incision was made over the olecranon where there was fluctuance. This incision opened the olecranon bursa. Clear viscous yellow fluid was drained from that site. There was no pus. Bleeding points were electrocoagulated. Each of these wounds was packed with 1/2 in iodoform gauze. Each site was dressed with thick gauze sponges a Kerlix roll and a lightly applied Edwin wrap to stabilize. Cultures for aerobes and anaerobes were taken from the dorsal hand Estimated Blood Loss -20.0 Tourniquet Time 0 Urine Output 600 Drains No Packing Yes Pathology Yes Complications No immediate complications Condition Stable Disposition PACU
--- NOTE | 2022-12-06 18:45 | SUR.PHASEI ---
1839- Call to Riley Bo RN due to patient's oxygen saturations. Patient on 15L simple face mask and saturations dropping into 80's to low 90's. Per Riley Bo RN can get BIPAP orders and call RT to place patient on BIPAP at this time. 1844- RT to bedside and placing patient on BIPAP.
[2022-12-06 18:46] LABS: Glucose Point of Care 117 mg/dl (65-105)
[2022-12-06 18:46] LABS: Glucose Point of Care 103 mg/dl (65-105)
[2022-12-06] MEDS: fentaNYL CITRATE INJ (*CRX) 100 MCG/2 ML VIAL 25 MCG IV PUSH (19:13)
[2022-12-07] MEDS: HYDROcodone/acetaminophen (*CRX) 5-325 MG TABLET 1 TAB PO ×6 (01:18→22:13)
[2022-12-07 04:19] VITALS: BP 153/65; PULSE 108; RESP 18; TEMP 36.7; O2SAT 92
[2022-12-07 05:54] LABS: Hematocrit 44.5 % (42.0-52.0); Hemoglobin 14.5 g/dL (14.0-18.0); Mean Corpuscular HGB Conc 32.6 g/dl (32-36); Mean Corpuscular Hemoglobin 31.9 pg (26-34); Platelet Count Result 196 k/mm3 (150-375); Red Blood Count 4.54 M/mm3 (4.6-6.20); Red Cell Distribution Width 14.3 % (11.5-14.5); White Blood Count 8.1 K/mm3 (4.5-10.0)
[2022-12-07 06:11] LABS: Anion Gap 5 mmol/L (8-16); Blood Urea Nitrogen 10 mg/dL (9-20); Calcium 7.8 mg/dL (8.4-10.2); Carbon Dioxide 32 mmol/L (22-30); Chloride 98 mmol/L (98-107); Estimated CRCL calculation 163 ml/min; Estimated Glomerular Filt Rate > 60; Glucose 142 mg/dL (65-110); Magnesium 2.2 mg/dL (1.6-2.3); Potassium 3.7 mmol/L (3.4-5.0); Sodium 135 mmol/L (137-145)
--- NOTE | 2022-12-07 07:42 | WPDPN ---
Progress Note: A&P Assessment and Plan (1) Cellulitis of left upper extremity: Code(s): L03.114 - Cellulitis of left upper limb Status: Acute Assessment and Plan: I believe his current UE condition is erysipelas. Bacteremia and cellulitis and the erysipelas have been treated by his antibiotic therapy. Symptoms of erysipelas may be controlled by elevation and iced or cooling applications and a period of oral suppression is recommended. May take weeks to resolve. The active strep infection may recur. Path specimen is pending. Subjective Date/time seen: 12/07/22 07:42 Interval history: Left upper extremity feels better. No pain. No fever. Exam Narrative: Bandages not changed yet. No apparent soilage. Hand and wrist AROM improved. Edema and rashy appearance slightly improved. Erythema of medial arm is not tender or boggy. Not crepitant. Not hot. Objective Data Vital Signs Vital Signs: Vital Signs - 24 hr 12/06/22 09:00 12/06/22 11:23 12/06/22 14:00 Temperature 97.3 F L Pulse Rate 92 Respiratory Rate 20 Blood Pressure 144/79 H Pulse Oximetry 91 Oxygen Delivery Room Air Room Air Oxygen Flow Rate 12/06/22 16:13 12/06/22 18:02 12/06/22 18:15 Temperature 98.5 F 98.2 F Pulse Rate 100 114 H 115 H Respiratory Rate 16 16 16 Blood Pressure 152/80 H 157/79 H 140/77 Pulse Oximetry 95 91 94 Oxygen Delivery Room Air Simple Face Mask Simple Face Mask Oxygen Flow Rate 8 8 12/06/22 18:20 12/06/22 18:25 12/06/22 18:40 Temperature Pulse Rate 113 H 110 H 115 H Respiratory Rate 20 18 18 Blood Pressure 144/78 H 148/80 H 172/79 H Pulse Oximetry 98 100 92 Oxygen Delivery Simple Face Mask Simple Face Mask Simple Face Mask Oxygen Flow Rate 8 15 15 12/06/22 18:50 12/06/22 19:00 12/06/22 19:05 Temperature 99.3 F Pulse Rate 116 H 116 H 111 H Respiratory Rate 18 19 18 Blood Pressure 162/93 H 160/83 H 180/81 H Pulse Oximetry 100 99 99 Oxygen Delivery BiPAP BiPAP Room Air Oxygen Flow Rate 12/06/22 19:20 12/06/22 19:25 12/06/22 19:30 Temperature 99 F Pulse Rate 114 H 108 H 106 H Respiratory Rate 18 19 18 Blood Pressure 160/95 H 163/88 H 162/89 H Pulse Oximetry 98 99 99 Oxygen Delivery Nasal Cannula Nasal Cannula Nasal Cannula Oxygen Flow Rate 3 3 2 12/06/22 18:54 12/06/22 20:06 12/06/22 20:45 Temperature 98.2 F 98.3 F Pulse Rate 121 H 110 H 110 H Respiratory Rate 18 20 18 Blood Pressure 139/80 135/67 Pulse Oximetry 98 93 91 Oxygen Delivery BiPAP Oxygen Flow Rate 12/06/22 21:15 12/06/22 22:15 12/06/22 21:30 Temperature 98 F 97.9 F Pulse Rate 104 H 100 100 Respiratory Rate 20 18 18 Blood Pressure 134/77 142/62 H Pulse Oximetry 94 94 94 Oxygen Delivery Nasal Cannula Oxygen Flow Rate 1 12/06/22 23:20 12/06/22 23:35 12/07/22 04:19 Temperature 98.5 F 98.1 F Pulse Rate 99 108 H Respiratory Rate 18 18 Blood Pressure 129/66 153/65 H Pulse Oximetry 94 94 92 Oxygen Delivery Nasal Cannula Oxygen Flow Rate 1 Intake/Output Intake/Output: Intake & Output 12/04/22 12/05/22 12/06/22 12/07/22 23:59 23:59 23:59 23:59 Intake Total 4110 3340 1670 550 Output Total 1750 600 600 Balance 2360 2740 1070 550 Meds/Results Medications: Active Medications Generic Name Dose Route Start Last Admin Trade Name Freq PRN Reason Stop Dose Admin Hydrocodone Bitart/Acetaminophen 1 tab 12/04/22 22:35 12/07/22 05:09 Hydrocodone/Acetaminophen (*Crx) 5-325 Mg Tablet PO 1 tab Q4H PRN Administration Pain Rated 4-6 Ceftriaxone Sodium 2 gm in 100 mls @ 200 mls/hr 12/06/22 12:00 12/06/22 13:25 Rocephin 2 Gm/Ns 100 Ml IVPB Infused NOON MACK Infusion Miconazole Nitrate 1 applic 12/04/22 09:00 12/06/22 09:10 Miconazole 2% Antifungal Ointment 56 Gm TOPICAL 1 applic DAILY MACK Administration Ondansetron HCl 4 mg 12/03/22 22:57 Ondansetron Inj 4 Mg/2 Ml Vial IV PUSH Q4H PRN Nausea Silv
[2022-12-07 08:31] LABS: Glucose Point of Care 121 mg/dl (65-105)
[2022-12-07] MEDS: SILVERGEL (ELTA) 45 ML 1 APPLIC TOPICAL (09:19)
--- NOTE | 2022-12-07 09:54 | WPDANESPN ---
Anes - Prog Note Post-Op Date/Time: 12/07/22 09:54 Cardiovascular status: normal Respiratory status: normal Airway patency: baseline Mental status: baseline Post-Op hydration status: normal Vital Signs: Last Vital Signs Temp 36.7 C 12/07/22 04:19 Pulse 108 H 12/07/22 04:19 Resp 18 12/07/22 04:19 BP 153/65 H 12/07/22 04:19 Pulse Ox 92 12/07/22 04:19 O2 Del Method Nasal Cannula 12/06/22 23:35 O2 Flow Rate 1 12/06/22 23:35 Pain Score (VAS): 2 I/O: Intake & Output 12/06/22 12/07/22 12/07/22 23:59 07:59 15:59 Intake Total 250 550 Output Total 600 Balance -350 550 Laboratory Tests 12/07/22 05:44 12/07/22 05:44 12/06/22 12/06/22 12/06/22 09:19 12:47 15:27 WBC RBC Hgb Hct MCV MCH MCHC RDW Plt Count MPV Sodium Potassium Chloride Carbon Dioxide Anion Gap BUN Creatinine Estim Creat Clear Calc Estimated GFR Glucose POC Capillary Glucose 109 H Calcium Magnesium C-Reactive Protein 17.2 H Vancomycin Trough 12.7 12/06/22 12/06/22 12/07/22 16:38 18:16 05:44 WBC 8.1 RBC 4.54 L Hgb 14.5 Hct 44.5 MCV 98.0 MCH 31.9 MCHC 32.6 RDW 14.3 Plt Count 196 MPV 9.0 Sodium Potassium Chloride Carbon Dioxide Anion Gap BUN Creatinine Estim Creat Clear Calc Estimated GFR Glucose POC Capillary Glucose 103 117 H Calcium Magnesium C-Reactive Protein Vancomycin Trough 12/07/22 12/07/22 05:44 08:27 WBC RBC Hgb Hct MCV MCH MCHC RDW Plt Count MPV Sodium 135 L Potassium 3.7 Chloride 98 Carbon Dioxide 32 H Anion Gap 5 L BUN 10 Creatinine 0.70 Estim Creat Clear Calc 163 Estimated GFR > 60 Glucose 142 H POC Capillary Glucose 121 H Calcium 7.8 L Magnesium 2.2 C-Reactive Protein Vancomycin Trough Microbiology 12/06/22 17:30 Arm Left Anaerobic Culture - Preliminary 12/06/22 17:30 Arm Left Anaerobic Culture - Preliminary 12/03/22 21:09 Blood Blood Culture - Preliminary Group A Streptococcus isolated 12/05/22 10:44 Blood Blood Culture - Preliminary 12/05/22 10:41 Blood Blood Culture - Preliminary Post-procedural complaints: none Patient Feedback: Patient satisfied with anesthetic care.
--- NOTE | 2022-12-07 11:49 | PM.IMPN ---
Progress Note: A&P Assessment and Plan (1) Lymphedema: Code(s): I89.0 - Lymphedema, not elsewhere classified Status: Acute Assessment and Plan: PT OT to evaluate (2) Cellulitis of left upper extremity: Code(s): L03.114 - Cellulitis of left upper limb Status: Acute Assessment and Plan: iv abx await sens + blood cultures as well Surgery to eval (3) BMI 60.0-69.9, adult: Code(s): Z68.44 - Body mass index [BMI] 60.0-69.9, adult Status: Acute Assessment and Plan: will consult dietitian Subjective Date/time seen: 12/07/22 11:49 Doing okay, pain controlled. Status post left hand debridement Exam Narrative: morbidly obese Patient is comfortable, NAD HEENT: eyes are clear and none icteric LUNGS: normal respiratory effort ABD: obese distended Lower extremities: edema SKIN: nonjaundiced, left upper arm, had and wrist edema, erythema, and red streak along medial aspect to axilla. Neuro: grossly intact. Objective Data Vital Signs Vital Signs: Vital Signs - 24 hr 12/06/22 14:00 12/06/22 16:13 12/06/22 18:02 Temperature 97.3 F L 98.5 F 98.2 F Pulse Rate 92 100 114 H Respiratory Rate 20 16 16 Blood Pressure 144/79 H 152/80 H 157/79 H Pulse Oximetry 91 95 91 Oxygen Delivery Room Air Simple Face Mask Oxygen Flow Rate 8 12/06/22 18:15 12/06/22 18:20 12/06/22 18:25 Temperature Pulse Rate 115 H 113 H 110 H Respiratory Rate 16 20 18 Blood Pressure 140/77 144/78 H 148/80 H Pulse Oximetry 94 98 100 Oxygen Delivery Simple Face Mask Simple Face Mask Simple Face Mask Oxygen Flow Rate 8 8 15 12/06/22 18:40 12/06/22 18:50 12/06/22 19:00 Temperature 99.3 F Pulse Rate 115 H 116 H 116 H Respiratory Rate 18 18 19 Blood Pressure 172/79 H 162/93 H 160/83 H Pulse Oximetry 92 100 99 Oxygen Delivery Simple Face Mask BiPAP BiPAP Oxygen Flow Rate 15 12/06/22 19:05 12/06/22 19:20 12/06/22 19:25 Temperature 99 F Pulse Rate 111 H 114 H 108 H Respiratory Rate 18 18 19 Blood Pressure 180/81 H 160/95 H 163/88 H Pulse Oximetry 99 98 99 Oxygen Delivery Room Air Nasal Cannula Nasal Cannula Oxygen Flow Rate 3 3 12/06/22 19:30 12/06/22 18:54 12/06/22 20:06 Temperature 98.2 F Pulse Rate 106 H 121 H 110 H Respiratory Rate 18 18 20 Blood Pressure 162/89 H 139/80 Pulse Oximetry 99 98 93 Oxygen Delivery Nasal Cannula BiPAP Oxygen Flow Rate 2 12/06/22 20:45 12/06/22 21:15 12/06/22 22:15 Temperature 98.3 F 98 F 97.9 F Pulse Rate 110 H 104 H 100 Respiratory Rate 18 20 18 Blood Pressure 135/67 134/77 142/62 H Pulse Oximetry 91 94 94 Oxygen Delivery Oxygen Flow Rate 12/06/22 21:30 12/06/22 23:20 12/06/22 23:35 Temperature 98.5 F Pulse Rate 100 99 Respiratory Rate 18 18 Blood Pressure 129/66 Pulse Oximetry 94 94 94 Oxygen Delivery Nasal Cannula Nasal Cannula Oxygen Flow Rate 1 1 12/07/22 04:19 12/07/22 09:15 Temperature 98.1 F Pulse Rate 108 H Respiratory Rate 18 Blood Pressure 153/65 H Pulse Oximetry 92 Oxygen Delivery Room Air Oxygen Flow Rate Intake/Output Intake/Output: Intake & Output 12/04/22 12/05/22 12/06/22 12/07/22 23:59 23:59 23:59 23:59 Intake Total 4110 3340 1670 550 Output Total 1750 600 600 Balance 2360 2740 1070 550 Meds/Results Medications: Active Medications Generic Name Dose Route Start Last Admin Trade Name Freq PRN Reason Stop Dose Admin Hydrocodone Bitart/Acetaminophen 1 tab 12/04/22 22:35 12/07/22 09:19 Hydrocodone/Acetaminophen (*Crx) 5-325 Mg Tablet PO 1 tab Q4H PRN Administration Pain Rated 4-6 Ceftriaxone Sodium 2 gm in 100 mls @ 200 mls/hr 12/06/22 12:00 12/06/22 13:25 Rocephin 2 Gm/Ns 100 Ml IVPB Infused NOON MACK Infusion Miconazole Nitrate 1 applic 12/04/22 09:00 12/07/22 09:19 Miconazole 2% Antifungal Ointment 56 Gm TOPICAL 1 applic DAILY MACK Administration Ondansetron HCl 4 mg 12/03/22 22:57 On
[2022-12-07 12:51] LABS: Glucose Point of Care 130 mg/dl (65-105)
[2022-12-07] MEDS: cefTRIAXone 2 GM/NS 100 ML 2 GM/100 ML BAG IVPB (13:34)
[2022-12-07 14:00] VITALS: BP 123/67; PULSE 104; RESP 20; TEMP 35.6; O2SAT 93
[2022-12-07 17:28] LABS: Glucose Point of Care 122 mg/dl (65-105)
[2022-12-07 20:00] VITALS: PULSE 104; RESP 22; O2SAT 92
[2022-12-07 21:09] LABS: Glucose Point of Care 118 mg/dl (65-105)
[2022-12-07 21:33] VITALS: BP 126/82; PULSE 104; RESP 22; TEMP 36.8; O2SAT 92
[2022-12-08] MEDS: HYDROcodone/acetaminophen (*CRX) 5-325 MG TABLET 1 TAB PO ×2 (01:59→06:19)
[2022-12-08 04:38] VITALS: BP 121/57; PULSE 106; RESP 22; TEMP 36.5; O2SAT 93
[2022-12-08 05:33] LABS: Hemoglobin 15.6 g/dL (14.0-18.0); Mean Corpuscular HGB Conc 31.2 g/dl (32-36); Mean Corpuscular Hemoglobin 31.6 pg (26-34); Mean Corpuscular Volume 101.4 fl (80-100); Mean Platelet Volume 9.1 fl (7.4-10.4); Platelet Count Result 232 k/mm3 (150-375); Red Blood Count 4.93 M/mm3 (4.6-6.20); Red Cell Distribution Width 14.4 % (11.5-14.5); White Blood Count 9.5 K/mm3 (4.5-10.0)
[2022-12-08 05:57] LABS: Anion Gap 3 mmol/L (8-16); Blood Urea Nitrogen 10 mg/dL (9-20); Calcium 8.2 mg/dL (8.4-10.2); Carbon Dioxide 35 mmol/L (22-30); Chloride 94 mmol/L (98-107); Estimated CRCL calculation 144 ml/min; Estimated Glomerular Filt Rate > 60; Glucose 123 mg/dL (65-110); Magnesium 2.3 mg/dL (1.6-2.3); Potassium 3.9 mmol/L (3.4-5.0); Sodium 132 mmol/L (137-145)
[2022-12-08 08:34] LABS: Glucose Point of Care 133 mg/dl (65-105)
--- NOTE | 2022-12-08 10:51 | PM.IMPN ---
Progress Note: A&P Assessment and Plan (1) Lymphedema: Code(s): I89.0 - Lymphedema, not elsewhere classified Status: Acute Assessment and Plan: PT OT to evaluate (2) Cellulitis of left upper extremity: Code(s): L03.114 - Cellulitis of left upper limb Status: Acute Assessment and Plan: iv abx await sens + blood cultures as well Surgery to eval (3) BMI 60.0-69.9, adult: Code(s): Z68.44 - Body mass index [BMI] 60.0-69.9, adult Status: Acute Assessment and Plan: will consult dietitian Subjective Date/time seen: 12/08/22 10:52 No complaints Exam Narrative: morbidly obese Patient is comfortable, NAD HEENT: eyes are clear and none icteric LUNGS: normal respiratory effort ABD: obese distended Lower extremities: edema SKIN: nonjaundiced, left upper arm, had and wrist edema, erythema, and red streak along medial aspect to axilla. Neuro: grossly intact. Objective Data Vital Signs Vital Signs: Vital Signs - 24 hr 12/07/22 14:00 12/07/22 21:33 12/07/22 20:00 Temperature 96.0 F L 98.3 F Pulse Rate 104 H 104 H 104 H Respiratory Rate 20 22 H 22 H Blood Pressure 123/67 126/82 Pulse Oximetry 93 92 92 Oxygen Delivery Room Air 12/08/22 04:38 Temperature 97.7 F Pulse Rate 106 H Respiratory Rate 22 H Blood Pressure 121/57 L Pulse Oximetry 93 Oxygen Delivery Intake/Output Intake/Output: Intake & Output 12/05/22 12/06/22 12/07/22 12/08/22 23:59 23:59 23:59 23:59 Intake Total 3340 1670 1970 4 Output Total 600 600 Balance 2740 1070 1970 4 Meds/Results Medications: Active Medications Generic Name Dose Route Start Last Admin Trade Name Freq PRN Reason Stop Dose Admin Hydrocodone Bitart/Acetaminophen 1 tab 12/04/22 22:35 12/08/22 06:19 Hydrocodone/Acetaminophen (*Crx) 5-325 Mg Tablet PO 1 tab Q4H PRN Administration Pain Rated 4-6 Ceftriaxone Sodium 2 gm in 100 mls @ 200 mls/hr 12/06/22 12:00 12/07/22 14:10 Rocephin 2 Gm/Ns 100 Ml IVPB Infused NOON MACK Infusion Miconazole Nitrate 1 applic 12/04/22 09:00 12/07/22 09:19 Miconazole 2% Antifungal Ointment 56 Gm TOPICAL 1 applic DAILY MACK Administration Ondansetron HCl 4 mg 12/03/22 22:57 Ondansetron Inj 4 Mg/2 Ml Vial IV PUSH Q4H PRN Nausea Silver Nitrate 1 applic 12/04/22 09:00 12/07/22 09:19 Silvergel (Elta) 45 Ml TOPICAL 1 applic DAILY MACK Administration Radiology Results: ITS Impressions Chest X-Ray 12/03/22 21:08 IMPRESSION: No acute cardiopulmonary process. Tibia/Fibula X-Ray 12/03/22 21:12 IMPRESSION: No acute osseous finding in the bilateral tibia or fibula. Tibia/Fibula X-Ray 12/03/22 21:12 IMPRESSION: No acute osseous finding in the bilateral tibia or fibula. Labs Labs: Laboratory Results - last 24 hr 12/07/22 12/07/22 12/07/22 12:47 17:17 21:06 WBC RBC Hgb Hct MCV MCH MCHC RDW Plt Count MPV Sodium Potassium Chloride Carbon Dioxide Anion Gap BUN Creatinine Estim Creat Clear Calc Estimated GFR Glucose POC Capillary Glucose 130 H 122 H 118 H Calcium Magnesium 12/08/22 12/08/22 12/08/22 05:18 05:18 08:30 WBC 9.5 RBC 4.93 Hgb 15.6 Hct 50.0 MCV 101.4 H MCH 31.6 MCHC 31.2 L RDW 14.4 Plt Count 232 MPV 9.1 Sodium 132 L Potassium 3.9 Chloride 94 L Carbon Dioxide 35 H Anion Gap 3 L BUN 10 Creatinine 0.80 Estim Creat Clear Calc 144 Estimated GFR > 60 Glucose 123 H POC Capillary Glucose 133 H Calcium 8.2 L Magnesium 2.3
[2022-12-08] MEDS: cefTRIAXone 2 GM/NS 100 ML 2 GM/100 ML BAG IVPB (11:21)
[2022-12-08] MEDS: HYDROcodone/acetaminophen (*CRX) 5-325 MG TABLET 2 TAB PO ×3 (11:21→23:38)
[2022-12-08] MEDS: SILVERGEL (ELTA) 45 ML 1 APPLIC TOPICAL (11:25)
[2022-12-08 12:39] LABS: Glucose Point of Care 125 mg/dl (65-105)
[2022-12-08 14:00] VITALS: BP 117/63; PULSE 95; RESP 18; TEMP 36.2; O2SAT 98
[2022-12-08 16:48] LABS: Glucose Point of Care 135 mg/dl (65-105)
--- NOTE | 2022-12-08 17:32 | WPDPN ---
Progress Note: A&P Assessment and Plan (1) Cellulitis of left upper extremity: Code(s): L03.114 - Cellulitis of left upper limb Status: Acute Assessment and Plan: Erysipelas, I believe, will not change appearance quickly, but Patient could probably be discharged soon. Need to help control UPPER extremity edema with elevation and OT. Pt may be prone to chronic lymphedema of the L UE following this experience. Consult by ID Pharmacist may be helpful in deciding on discharge planning. I do not have particular experience in this condition. Repeat CRP may be interesting in this case. His LE lymphedema is not the reason he was admitted. Subjective Date/time seen: 12/08/22 17:32 Interval history: Up in chair eating. Asking about pain meds, but only interested in Tylenol and or ibuprofen. Says he has been elevating UE. Not complaining much about the UE. Exam Narrative: Dressing changed. Three 1 inch wounds from surgical exploration. Three iodoform barbara pulled. Little serous drainage. No pus. Area of redness extends unchanged from dorsal fingers to axilla. Not hot. Whole extremity edema that limits ability to flex and extend digits and wrist. No area is significantly tender. WBC remains less than 10. Based in surgical findings and clearance of bacteremia, would not be surprised if culture is negative. Objective Data Vital Signs Vital Signs: Vital Signs - 24 hr 12/07/22 21:33 12/07/22 20:00 12/08/22 04:38 Temperature 98.3 F 97.7 F Pulse Rate 104 H 104 H 106 H Respiratory Rate 22 H 22 H 22 H Blood Pressure 126/82 121/57 L Pulse Oximetry 92 92 93 Oxygen Delivery Room Air 12/08/22 14:00 Temperature 97.2 F L Pulse Rate 95 Respiratory Rate 18 Blood Pressure 117/63 Pulse Oximetry 98 Oxygen Delivery Intake/Output Intake/Output: Intake & Output 12/05/22 12/06/22 12/07/22 12/08/22 23:59 23:59 23:59 23:59 Intake Total 3340 1670 1970 784 Output Total 600 600 Balance 2740 1070 1970 784 Meds/Results Medications: Active Medications Generic Name Dose Route Start Last Admin Trade Name Freq PRN Reason Stop Dose Admin Hydrocodone Bitart/Acetaminophen 2 tab 12/08/22 10:52 12/08/22 11:21 Hydrocodone/Acetaminophen (*Crx) 5-325 Mg Tablet PO 2 tab Q4H PRN Administration Pain Rated 4-6 Ceftriaxone Sodium 2 gm in 100 mls @ 200 mls/hr 12/06/22 12:00 12/08/22 11:51 Rocephin 2 Gm/Ns 100 Ml IVPB Infused NOON MACK Infusion Miconazole Nitrate 1 applic 12/04/22 09:00 12/08/22 11:25 Miconazole 2% Antifungal Ointment 56 Gm TOPICAL 1 applic DAILY MACK Administration Ondansetron HCl 4 mg 12/03/22 22:57 Ondansetron Inj 4 Mg/2 Ml Vial IV PUSH Q4H PRN Nausea Silver Nitrate 1 applic 12/04/22 09:00 12/08/22 11:25 Silvergel (Elta) 45 Ml TOPICAL 1 applic DAILY MACK Administration Radiology Results: ITS Impressions Chest X-Ray 12/03/22 21:08 IMPRESSION: No acute cardiopulmonary process. Tibia/Fibula X-Ray 12/03/22 21:12 IMPRESSION: No acute osseous finding in the bilateral tibia or fibula. Tibia/Fibula X-Ray 12/03/22 21:12 IMPRESSION: No acute osseous finding in the bilateral tibia or fibula. Labs Labs: Laboratory Results - last 24 hr 12/07/22 12/08/22 12/08/22 21:06 05:18 05:18 WBC 9.5 RBC 4.93 Hgb 15.6 Hct 50.0 MCV 101.4 H MCH 31.6 MCHC 31.2 L RDW 14.4 Plt Count 232 MPV 9.1 Sodium 132 L Potassium 3.9 Chloride 94 L Carbon Dioxide 35 H Anion Gap 3 L BUN 10 Creatinine 0.80 Estim Creat Clear Calc 144 Estimated GFR > 60 Glucose 123 H POC Capillary Glucose 118 H Calcium 8.2 L Magnesium 2.3 12/08/22 12/08/22 12/08/22 08:30 12:32 16:40 WBC RBC Hgb Hct MCV MCH MCHC RDW Plt Count MPV Sodium Potassium Chloride Carbon Dioxide Anion Gap BUN Creati
[2022-12-08 19:45] VITALS: BP 150/71; PULSE 93; RESP 20; TEMP 36.8; O2SAT 94
[2022-12-08 20:08] LABS: Glucose Point of Care 121 mg/dl (65-105)
[2022-12-09] MEDS: HYDROcodone/acetaminophen (*CRX) 5-325 MG TABLET 2 TAB PO ×3 (05:06→18:11)
[2022-12-09 05:21] VITALS: BP 136/71; PULSE 95; RESP 20; TEMP 36.8; O2SAT 93
[2022-12-09 05:56] LABS: Hematocrit 44.7 % (42.0-52.0); Hemoglobin 14.5 g/dL (14.0-18.0); Mean Corpuscular HGB Conc 32.4 g/dl (32-36); Mean Corpuscular Volume 98.7 fl (80-100); Mean Platelet Volume 9.1 fl (7.4-10.4); Platelet Count Result 226 k/mm3 (150-375); Red Blood Count 4.53 M/mm3 (4.6-6.20); Red Cell Distribution Width 14.3 % (11.5-14.5)
[2022-12-09 06:08] LABS: Anion Gap 2 mmol/L (8-16); Blood Urea Nitrogen 10 mg/dL (9-20); Carbon Dioxide 35 mmol/L (22-30); Chloride 94 mmol/L (98-107); Estimated CRCL calculation 163 ml/min; Estimated Glomerular Filt Rate > 60; Glucose 117 mg/dL (65-110); Magnesium 2.2 mg/dL (1.6-2.3); Potassium 3.8 mmol/L (3.4-5.0); Sodium 131 mmol/L (137-145)
--- NOTE | 2022-12-09 06:24 | PC.NURSE ---
Daylight Savings Time For Daylight Savings Time Ending in the Fall - Clocks are moved back. For Daylight Savings Time Beginning in the Spring - Clocks are moved ahead. For [facility], the time of change occurs at 0200 hrs. Time is taken from the senior sql server developer. This entry on the patient's chart recognizes the change in time reflected during documentation. Example: 2 entries for vital signs may be charted for 0200 hrs.
[2022-12-09 08:56] LABS: Glucose Point of Care 119 mg/dl (65-105)
[2022-12-09] MEDS: cefTRIAXone 2 GM/NS 100 ML 2 GM/100 ML BAG IVPB (12:04)
--- NOTE | 2022-12-09 12:04 | PM.IMPN ---
Progress Note: A&P Assessment and Plan (1) Lymphedema: Code(s): I89.0 - Lymphedema, not elsewhere classified Status: Acute Assessment and Plan: PT OT to evaluate (2) Cellulitis of left upper extremity: Code(s): L03.114 - Cellulitis of left upper limb Status: Acute Assessment and Plan: iv abx await sens + blood cultures as well Surgery to eval (3) BMI 60.0-69.9, adult: Code(s): Z68.44 - Body mass index [BMI] 60.0-69.9, adult Status: Acute Assessment and Plan: will consult dietitian Subjective Date/time seen: 12/09/22 12:04 No new complaints Exam Narrative: morbidly obese Patient is comfortable, NAD HEENT: eyes are clear and none icteric LUNGS: normal respiratory effort ABD: obese distended Lower extremities: edema SKIN: nonjaundiced, left upper arm, had and wrist edema, erythema, and red streak along medial aspect to axilla. Neuro: grossly intact. Objective Data Vital Signs Vital Signs: Vital Signs - 24 hr 12/08/22 14:00 12/08/22 19:45 12/09/22 05:21 Temperature 97.2 F L 98.2 F 98.2 F Pulse Rate 95 93 95 Respiratory Rate 18 20 20 Blood Pressure 117/63 150/71 H 136/71 Pulse Oximetry 98 94 93 Intake/Output Intake/Output: Intake & Output 12/06/22 12/07/22 12/08/22 12/10/22 23:59 23:59 23:59 00:59 Intake Total 1670 1970 1024 540 Output Total 600 Balance 1070 1970 1024 540 Meds/Results Medications: Active Medications Generic Name Dose Route Start Last Admin Trade Name Freq PRN Reason Stop Dose Admin Hydrocodone Bitart/Acetaminophen 2 tab 12/08/22 10:52 12/09/22 05:06 Hydrocodone/Acetaminophen (*Crx) 5-325 Mg Tablet PO 2 tab Q4H PRN Administration Pain Rated 4-6 Ceftriaxone Sodium 2 gm in 100 mls @ 200 mls/hr 12/06/22 12:00 12/08/22 11:51 Rocephin 2 Gm/Ns 100 Ml IVPB Infused NOON MACK Infusion Miconazole Nitrate 1 applic 12/04/22 09:00 12/08/22 11:25 Miconazole 2% Antifungal Ointment 56 Gm TOPICAL 1 applic DAILY MACK Administration Ondansetron HCl 4 mg 12/03/22 22:57 Ondansetron Inj 4 Mg/2 Ml Vial IV PUSH Q4H PRN Nausea Silver Nitrate 1 applic 12/04/22 09:00 12/08/22 11:25 Silvergel (Elta) 45 Ml TOPICAL 1 applic DAILY MACK Administration Radiology Results: ITS Impressions Chest X-Ray 12/03/22 21:08 IMPRESSION: No acute cardiopulmonary process. Tibia/Fibula X-Ray 12/03/22 21:12 IMPRESSION: No acute osseous finding in the bilateral tibia or fibula. Tibia/Fibula X-Ray 12/03/22 21:12 IMPRESSION: No acute osseous finding in the bilateral tibia or fibula. Labs Labs: Laboratory Results - last 24 hr 12/08/22 12/08/22 12/08/22 05:16 12:32 16:40 WBC RBC Hgb Hct MCV MCH MCHC RDW Plt Count MPV Sodium Potassium Chloride Carbon Dioxide Anion Gap BUN Creatinine Estim Creat Clear Calc Estimated GFR Glucose POC Capillary Glucose 125 H 135 H Calcium Magnesium C-Reactive Protein 7.0 H 12/08/22 12/09/22 12/09/22 19:49 05:43 05:43 WBC 8.0 RBC 4.53 L Hgb 14.5 Hct 44.7 MCV 98.7 MCH 32.0 MCHC 32.4 RDW 14.3 Plt Count 226 MPV 9.1 Sodium 131 L Potassium 3.8 Chloride 94 L Carbon Dioxide 35 H Anion Gap 2 L BUN 10 Creatinine 0.70 Estim Creat Clear Calc 163 Estimated GFR > 60 Glucose 117 H POC Capillary Glucose 121 H Calcium 8.0 L Magnesium 2.2 C-Reactive Protein 12/09/22 08:12 WBC RBC Hgb Hct MCV MCH MCHC RDW Plt Count MPV Sodium Potassium Chloride Carbon Dioxide Anion Gap BUN Creatinine Estim Creat Clear Calc Estimated GFR Glucose POC Capillary Glucose 119 H Calcium Magnesium C-Reactive Protein
[2022-12-09] MEDS: SILVERGEL (ELTA) 45 ML 1 APPLIC TOPICAL (12:06)
[2022-12-09 12:14] LABS: Glucose Point of Care 144 mg/dl (65-105)
[2022-12-09 14:00] VITALS: BP 139/86; PULSE 92; RESP 18; TEMP 36.7; O2SAT 94
[2022-12-09 17:30] LABS: Glucose Point of Care 100 mg/dl (65-105)
[2022-12-09 20:25] LABS: Glucose Point of Care 138 mg/dl (65-105)
[2022-12-09 22:00] VITALS: BP 144/80; PULSE 106; RESP 22; TEMP 36.9; O2SAT 94
[2022-12-09 23:02] VITALS: O2SAT 95
[2022-12-10] MEDS: HYDROcodone/acetaminophen (*CRX) 5-325 MG TABLET 2 TAB PO ×2 (00:04→08:16)
[2022-12-10 06:00] VITALS: BP 140/80; PULSE 100; RESP 20; TEMP 36.9; O2SAT 94
[2022-12-10 06:05] LABS: Glucose Point of Care 132 mg/dl (65-105)
[2022-12-10 06:15] LABS: Hematocrit 44.7 % (42.0-52.0); Hemoglobin 14.5 g/dL (14.0-18.0); Mean Corpuscular HGB Conc 32.4 g/dl (32-36); Mean Corpuscular Hemoglobin 31.9 pg (26-34); Mean Corpuscular Volume 98.2 fl (80-100); Mean Platelet Volume 9.1 fl (7.4-10.4); Platelet Count Result 237 k/mm3 (150-375); Red Blood Count 4.55 M/mm3 (4.6-6.20); Red Cell Distribution Width 14.3 % (11.5-14.5); White Blood Count 6.4 K/mm3 (4.5-10.0)
[2022-12-10 06:28] LABS: Anion Gap 0 mmol/L (8-16); Blood Urea Nitrogen 9 mg/dL (9-20); Calcium 8.1 mg/dL (8.4-10.2); Carbon Dioxide 37 mmol/L (22-30); Chloride 94 mmol/L (98-107); Estimated CRCL calculation 163 ml/min; Estimated Glomerular Filt Rate > 60; Glucose 120 mg/dL (65-110); Magnesium 2.4 mg/dL (1.6-2.3); Sodium 131 mmol/L (137-145)
[2022-12-10 11:16] VITALS: O2SAT 92
--- NOTE | 2022-12-10 12:13 | PM.DS ---
DS: Admitting Diagnosis Discharge Date December 10, 2022 Admitting Diagnosis Cellulitis DS: Discharge Diagnosis Discharge Diagnosis (1) Lymphedema: Code(s): I89.0 - Lymphedema, not elsewhere classified Status: Acute Assessment and Plan: PT OT to evaluate (2) Cellulitis of left upper extremity: Code(s): L03.114 - Cellulitis of left upper limb Status: Acute Assessment and Plan: iv abx await sens + blood cultures as well Surgery to eval (3) BMI 60.0-69.9, adult: Code(s): Z68.44 - Body mass index [BMI] 60.0-69.9, adult Status: Acute Assessment and Plan: will consult dietitian DS: Summary Hospital Course Hospital Course: Admitted for left upper extremity cellulitis. Had debridement by Dr. Sanford. Improved with IV antibiotics. He will be discharged on Omnicef. Also note his blood culture was positive for group a strep. Antibiotic should cover this on discharge. Repeat cultures negative Time Spent with Patient Time attestation: Total time spent providing and/or coordinating discharge services: Exam Narrative: morbidly obese Patient is comfortable, NAD HEENT: eyes are clear and none icteric LUNGS: normal respiratory effort ABD: obese distended Lower extremities: edema SKIN: nonjaundiced, left upper arm, had and wrist edema, erythema, and red streak along medial aspect to axilla. Neuro: grossly intact. DS: Data Data Completed and Pending Pending studies at discharge: Pending at discharge 12/06/22 17:41 Surgical [PTH] Routine Labs on day of discharge: Labs from last 24 hours 12/10/22 12/10/22 12/10/22 06:04 06:04 05:59 WBC 6.4 RBC 4.55 L Hgb 14.5 Hct 44.7 MCV 98.2 MCH 31.9 MCHC 32.4 RDW 14.3 Plt Count 237 MPV 9.1 Sodium 131 L Potassium 4.0 Chloride 94 L Carbon Dioxide 37 H Anion Gap 0 L BUN 9 Creatinine 0.70 Estim Creat Clear Calc 163 Estimated GFR > 60 Glucose 120 H POC Capillary Glucose 132 H Calcium 8.1 L Magnesium 2.4 H 12/09/22 12/09/22 12/09/22 20:19 17:22 12:03 WBC RBC Hgb Hct MCV MCH MCHC RDW Plt Count MPV Sodium Potassium Chloride Carbon Dioxide Anion Gap BUN Creatinine Estim Creat Clear Calc Estimated GFR Glucose POC Capillary Glucose 138 H 100 144 H Calcium Magnesium Preliminary micro results at discharge 12/06/22 17:30 Anaerobic Culture - Preliminary Arm Left 12/06/22 17:30 Anaerobic Culture - Preliminary Arm Left 12/05/22 10:44 Blood Culture - Preliminary Blood 12/05/22 10:41 Blood Culture - Preliminary Blood Discharge Plan Discharge Attending physician on discharge: Reyes Francisco Consulting providers: Girma Sanford Discharging Clinician: Reyes Francisco Patient Disposition: Home, Self-Care Activity: no preference Diet: as tolerated Patient Instructions: Antibiotic Form, Pain Management (DC) Stand Alone Forms: General Discharge Information Follow-up/Referrals: Girma Sanford MD [Physician] - Yinka Duval MD [Primary Care Provider] - Discharge Medications: New hydrocodone-acetaminophen 5-325 mg tablet 1 tablet PO Q6H PRN (Reason: pain) Qty: 20 0RF cefdinir 300 mg capsule 300 mg PO Q12H Qty: 14 0RF No Action No Home Medications Date of admission: 12/05/22 13:34 Primary Care Provider: Yinka Duval Admitting Provider: Arlyn Montano Attending physician on admission: Arlyn Montano Condition: Serious
[2022-12-10 12:37] LABS: Glucose Point of Care 120 mg/dl (65-105)
== END 2022-12-10 13:45 | disposition home or self-care (01) | DRG 603 ==
LOC: ANHED 20:19 → ANH3MED 12-04 00:37
PROVIDERS: Family Medicine; Plastic Surgery; Admitting Provider Internal Medicine; Emergency Provider General Practice; PCP Family Medicine; Visit Provider Chiropractor
DX: L03.114 Cellulitis of left upper limb (principal); Z68.44 Body mass index [BMI] 60.0-69.9, adult; E66.01 Morbid (severe) obesity due to excess calories
CPT/HCPCS: 36415; 71046; 73590; 80048; 80053; 80202; 81001; 82948; 83605; 83735; 85025; 85027; 86140; 87040; 87070; 87075; 87147; 87181; 87186; 87205; 88305; 94002; 96365; 96366; 96367; 96375; 97110; 97165; 99285; A9270; C8929; G0378; J0131; J0696; J2250; J2405; J2543; J2704; J3010; J3370; J7030; J7120; Q9957

== ENCOUNTER 2023-01-25 13:31 | Outpatient (CLI) | payer BC, SELFPAY ==
[2023-01-25 14:30] LABS: Basophils Percent Auto 0.8 % (0.2-1.2); Eosinophils Absolute Auto 0.2 K/mm3 (0-0.3); Eosinophils Percent Auto 3.6 % (0-4.4); Hematocrit 50.2 % (42.0-52.0); Hemoglobin 16.6 g/dL (14.0-18.0); Immature Granulocyte Absolute 0.02 K/mm3 (0.00-0.031); Immature Granulocyte Percent A 0.4 % (0-0.5); Lymphocytes Absolute Auto 1.16 K/mm3 (0.9-3.2); Lymphocytes Percent Auto 23.4 % (18.3-44.2); Mean Corpuscular HGB Conc 33.1 g/dl (32-36); Mean Corpuscular Hemoglobin 32.1 pg (26-34); Mean Corpuscular Volume 97.1 fl (80-100); Monocytes Absolute Auto 0.5 K/mm3 (0.1-0.6); Monocytes Percent Auto 10.9 % (2.6-8.5); Neutrophils Percent Auto 60.9 % (45.5-73.1); Platelet Count Result 168 k/mm3 (150-375); Red Blood Count 5.17 M/mm3 (4.6-6.20); Red Cell Distribution Width 14.4 % (11.5-14.5)
[2023-01-25 14:34] LABS: Anion Gap 6 mmol/L (8-16); Blood Urea Nitrogen 12 mg/dL (9-20); Calcium 8.9 mg/dL (8.4-10.2); Carbon Dioxide 33 mmol/L (22-30); Chloride 98 mmol/L (98-107); Estimated Glomerular Filt Rate > 60; Glucose 126 mg/dL (65-110); Potassium 4.4 mmol/L (3.4-5.0); Sodium 137 mmol/L (137-145)
[2023-01-25 14:42] LABS: Hemoglobin A1C 5.4 % (<5.7)
[2023-02-01 10:58] LABS: CRP, High Sensitivity >10.0 mg/L (***)
== END 2023-01-25 13:32 | disposition home or self-care (01) ==
LOC: ANHLAB 13:33
PROVIDERS: PCP Family Medicine; Visit Provider Nurse Practitioner Family
DX: L03.114 Cellulitis of left upper limb (principal); R73.09 Other abnormal glucose
CPT/HCPCS: 36415; 80048; 83036; 85025; 86141

== ENCOUNTER 2023-02-02 10:24 | Emergency (ER) | payer BC, SELFPAY ==
--- NOTE | 2023-02-02 10:31 | ED.SKABFB ---
HPI - Skin/Abscess/Foreign Bdy General Chief complaint: Skin/Abscess/Foreign Body Stated complaint: Rash all over Time Seen by Provider: 02/02/23 11:10 Source: patient and RN notes reviewed Mode of arrival: ambulatory Limitations: no limitations History of Present Illness HPI narrative: 57-year-old male presents with concern for generalized itchy rash. Reports rash started yesterday. Reports rash seems to be worse in areas where his skin is hot, for example when he lays on 1 side the rash is worse in that area or where his clothes or support braces hit his skin the rash is worse. He reports he is on day 8 of a course of clindamycin. He denies any blistering, lesions in the mouth, sloughing skin. Denies fever, aches, chills, sweats. Denies vomiting. He denies swollen lips, swollen tongue, trouble breathing. He did not take any medication for this rash yet. Patient was hospitalized on December 04 for cellulitis of the left arm and hand. He reports he also had surgery during the hospitalization for the infection. He reports his swelling and redness did not completely go away, he took a 20 day course of cephalexin that he was prescribed on 12/25, he still had symptoms so his primary doctor prescribed him clindamycin for 10 days that he started on 01/22. He stop taking the clindamycin last night after the rash started MD complaint: rash Related Data Home Medications Medication Instructions Recorded Confirmed clindamycin HCl 300 mg capsule 300 mg PO TID 02/02/23 02/02/23 Allergies Allergy/AdvReac Type Severity Reaction Status Date / Time No Known Allergies Allergy Unknown Verified 02/02/23 10:35 Review of Systems Review of Systems: CONSTITUTIONAL: Denies malaise, chills, sweats, or fever. EYES: Denies redness, or discharge. ENT: Denies rhinorrhea, congestion, swollen lips, swollen tongue CARDIOVASCULAR: Denies chest pain, palpitations, or edema. RESPIRATORY: Denies cough or dyspnea. GASTROINTESTINAL: Denies abdominal pain, nausea, vomiting SKIN: Reports generalized itchy rash MUSCULOSKELETAL: Denies joint pain or myalgia. NEUROLOGIC: Denies headache. All systems reviewed & are unremarkable except as noted in HPI and below PMFSH Past Medical History Medical History (Updated 02/02/23 @ 11:16 by Trudy Murphy NP) BMI 60.0-69.9, adult Elevated glucose Lymphedema No significant past medical history Screening for lipid disorders Screening for prostate cancer Surgical History Surgical History History of tonsillectomy Family History Family History Father Family history of coronary artery disease Hypertension Congestive heart failure Mother Family history of coronary artery disease Hypertension Other Family history of type 1 diabetes mellitus Social History Social History Smoking status: Never smoker Second hand tobacco smoke exposure: Yes Alcohol intake: current Drinks per week: 3 Substance use: never Substance use type: does not use Lack of Transportation: No Lack of Food: Never True Current Housing: I Have Housing Concerned About Future Housing: No Difficulty Paying Gas/Electric Bills: No Difficulty Paying for Meds: No Currently Unemployed: No Education: High School Diploma/GED Difficulty w/ Childcare or Family Care: No Spiritual care concerns: No Comments At time of signature, agree with nursing past medical, surgical, social and family history. There is no relevant family history pertinent to the presenting complaint Exam Narrative: GENERAL: Well-appearing, well-nourished, and in no acute distress. HEAD: Normocephalic, atraumatic. EYES: PERRLA, conjunctivae clear, and EOMI. ENT: Mucous membranes moist. Oropharynx without edema, erythema or lesions. NECK: Supple. No lymphadenopathy CHEST: Clear
[2023-02-02 10:35] VITALS: BP 133/77; PULSE 104; RESP 16; TEMP 37.2; O2SAT 95
[2023-02-02] MEDS: methylPREDNISolone SOD SUCC 125 MG VIAL IM (11:31)
== END 2023-02-02 11:44 | disposition home or self-care (01) ==
PROVIDERS: Emergency Provider Nurse Practitioner; PCP Family Medicine
DX: L27.0 Generalized skin eruption due to drugs and medicaments taken internally (principal); T36.8X5A Adverse effect of other systemic antibiotics, initial encounter
CPT/HCPCS: 96372; 99213; G0463; J2930

== ENCOUNTER 2023-06-24 14:30 | Outpatient (RCR) | payer BC, MEDICARE, SELFPAY ==
--- NOTE | 2023-05-13 14:43 | OPREHPOC ---
Outpatient Therapy Plan of Care This is a Multidisciplinary Plan of Care that may contain components documented by all disciplines (PT, OT, and ST.) PT Problem 1 PT Problem #1 Knowledge Deficit PT Goal 1 Goal 1* indep with self management of lymphedema--self manual lymph drainage and compression garment PT Problem 2 PT Problem #2 Pain PT Goal 1 Goal 1* pt report no pain in L hand PT Problem 3 PT Problem #3 Impaired Flexibility PT Goal 1 Goal active L UE motion in sittin* wrist flexion 60' 2* wrist extension 60' 3* forearm supination (-10') PT Problem 4 PT Problem #4 Impaired Lymphatic System PT Goal 1 Goal 1* circumferential measurement of L arm to 44 cm: 472 cm 2* no edema over dorsum of hand 3* slight adhesion with palpation over dorsum of hand scar 4* compression garment with good fit and comfort reported by pt
--- NOTE | 2023-05-13 14:43 | PTOPEVAL1 ---
Assessment and note entered by Maru Shrestha, PT Evaluation Information Assessment Status Evaluation Diagnosis lymphedema in L hand/UE Onset November 2022 Subjective Information had surgery over L arm- incisions at dorsum of hand and medial forearm and elbow; have had swelling in L hand since surgery, little swelling over forearm and upper arm; try to keep L arm elevated and move hand/fingers Reported Pain Level Pain Score Self Report Additional Pain Score Comments pain range of 0-2/10 in L hand- dorsum of hand; numb and tingling in hand; hand weak, cannot close fingers all way; is R handed, so not use L as much increase with use of hand; decrease pain with over the counter meds; Assessment PT Clinical Summary Madhu has the diagnosis of L UE lymphedema, s/p cellulitis and surgery on L arm. He also has lymphedema of both legs, with history of wounds and treatment by wound care. Now uses mickey wraps over his legs. With the evaluation, the circumferential measurement of his L arm is 18 cm larger than his R; has dorsum of hand swelling with adhesions of the scar; decreased L finger flexion and wrist flexion & extension, reports pain and numbness in L hand. Skilled PT services are indicated for lymphedema treatment: complete decongestive therapy--manual lymph drainage, multilayer compression wraps, intermittent compression pump, exercises, education for self massage, skin care, lymphedema management and compression garment for him to obtain. Plan of Care Interventions Intermittent Compression pump,Lymphedema Compression Wraps Manual Lymph Drainage,Patient Education, Therapeutic Exercise PT Services Indicated Yes Treatment Frequency and 3x/wk for 6 weeks Duration These treatments will address the objective and functional deficits as defined above. The patient will be advanced safely and appropriately in order for the patient to progress towards his/her prior level of function. Additional exercises will be introduced and as well as a comprehensive home exercise program upon discharge, if needed, ?to ensure carryover of functional gains achieved in the clinic. This tr
--- NOTE | 2023-05-13 14:44 | PCPTNOTE ---
PT eval performed today, but due to therapist availability- pt had to schedule treatment to start 2 weeks out. If schedule changes, will call pt to come in earlier.
--- NOTE | 2023-06-14 15:08 | PCPTNOTE ---
pt called and canceled today's appt due to family event;
--- NOTE | 2023-06-21 15:09 | PCPTNOTE ---
Patient did not show up for scheduled appointment this date. Called and left voicemail about missed appointment. Informed Pt of Re-eval on Saturday06/24/23 @ 14:30. This is Pt's first N/S
--- NOTE | 2023-06-24 15:23 | PTOPDC ---
Assessment and note entered by Maru Shrestha, PT Evaluation Information Assessment Status Discharge Diagnosis lymphedema in L hand/UE Onset November 2022 Subjective Information glove and sleeve are comfortable; doing self massage and using arm, doing exercises and moving around alot; can close hand better, but still cannot close all the way--doing exercises Reported Pain Level Pain Score 0: Self Report Additional Pain Score Comments some soreness of thumb and by scar- numbness still there; can close hand better, but still cannot close all the way--doing exercises Assessment PT Clinical Summary Madhu has received 12 PT sessions. Compared to the initial evaluation: L arm circumferential measurement has decreased by 21 cm dorsum of hand tissue and scar have improved with less indentation of scar tissue and no fibrotic tissue, except over the scar itself; education completed with pt on self manual lymph drainage, arm exercises, skin care and garment use. The compression garment-- Medi harmony arm sleeve, 20-30 mmHg compression size 8, extra wide with silicone band top and compression glove fit well and he reports they are comfortable. The goals were achieved. Discharge PT services. Plan of Care PT Services Indicated No
== END 2023-06-25 11:43 | disposition home or self-care (01) ==
LOC: ANHPT 14:30
PROVIDERS: PCP Family Medicine; Visit Provider Plastic Surgery
DX: I89.0 Lymphedema, not elsewhere classified (principal)
CPT/HCPCS: 29581; 97140; 97161; 97530

== ENCOUNTER 2023-11-06 11:40 | Outpatient (CLI) | payer MEDICARE, SELFPAY ==
[2023-11-06 12:11] LABS: Basophils Absolute Auto 0.1 K/mm3 (0.0-0.1); Eosinophils Absolute Auto 0.3 K/mm3 (0-0.3); Hematocrit 52.4 % (42.0-52.0); Hemoglobin 17.3 g/dL (14.0-18.0); Immature Granulocyte Absolute 0.02 K/mm3 (0.00-0.031); Immature Granulocyte Percent A 0.3 % (0-0.5); Lymphocytes Absolute Auto 1.64 K/mm3 (0.9-3.2); Lymphocytes Percent Auto 26.6 % (18.3-44.2); Mean Corpuscular Hemoglobin 29.8 pg (26-34); Mean Corpuscular Volume 90.3 fl (80-100); Mean Platelet Volume 8.9 fl (7.4-10.4); Monocytes Absolute Auto 0.5 K/mm3 (0.1-0.6); Monocytes Percent Auto 8.3 % (2.6-8.5); Neutrophils Absolute Auto 3.6 K/mm3 (1.3-6.7); Neutrophils Percent Auto 58.8 % (45.5-73.1); Platelet Count Result 150 k/mm3 (150-375); Red Cell Distribution Width 13.5 % (11.5-14.5); White Blood Count 6.2 K/mm3 (4.5-10.0)
[2023-11-06 12:23] LABS: Alanine Aminotransferase 10 U/L (6-50); Albumin Level 4.3 g/dL (3.5-5.1); Alkaline Phosphatase 103 U/L (38-126); Anion Gap 3 mmol/L (8-16); Aspartate Amino Transferase 31 U/L (17-59); Blood Urea Nitrogen 13 mg/dL (9-20); Calcium 9.2 mg/dL (8.4-10.2); Carbon Dioxide 34 mmol/L (22-30); Chloride 101 mmol/L (98-107); Estimated Glomerular Filt Rate > 60; Glucose 114 mg/dL (65-110); Potassium 4.5 mmol/L (3.4-5.0); Sodium 138 mmol/L (137-145)
[2023-11-06 12:27] LABS: Cholesterol 206 mg/dL (0-200); HDL Direct 45 mg/dL; Triglycerides 108 mg/dL (<150)
[2023-11-06 12:38] LABS: LDL Cholesterol Direct 118 mg/dL
[2023-11-06 12:52] LABS: Prostate Specific Antigen 0.6 ng/mL (< OR = 4.0)
[2023-11-06 14:56] LABS: Hemoglobin A1C 5.8 % (<5.7)
== END 2023-11-06 11:41 | disposition home or self-care (01) ==
PROVIDERS: PCP Family Medicine; Visit Provider Family Medicine
DX: I89.0 Lymphedema, not elsewhere classified (principal); R03.0 Elevated blood-pressure reading, without diagnosis of hypertension; R73.09 Other abnormal glucose; Z12.5 Encounter for screening for malignant neoplasm of prostate; R00.0 Tachycardia, unspecified; E66.01 Morbid (severe) obesity due to excess calories; Z13.220 Encounter for screening for lipoid disorders
CPT/HCPCS: 36415; 80048; 80061; 80076; 83036; 84153; 84443; 85025; G0103

== ENCOUNTER 2025-09-12 06:40 | Inpatient (IN) | payer MEDICARE, SELFPAY ==
[2025-09-12] VITALS (20 sets, daily range): BP systolic 112–183; BP diastolic 51–80; PULSE 110–141; RESP 18–28; TEMP 36.5–38.1; O2SAT 92–98; BMI 53.8
--- NOTE | ~2025-09-12 | CT_ITS ---
CHEST ABDOMEN PELVIS WITH CONTRAST CLINICAL HISTORY: sepsis . COMPARISON: None TECHNIQUE: Helical CT performed from thoracic inlet to symphysis pubis IV contrast information not listed in PACS Coronal, sagittal reformats. Multi planar MIPS CT images acquired with automatic exposure control for dose reduction DLP: 2143 mGy-cm FINDINGS: CHEST- Lungs/Pleura: Dependent bibasilar atelectasis. Thoracic Aorta: No dissection. No aneurysm. Pulmonary arteries: Normal caliber. Heart: Upper limit of normal in size. Trace pericardial fluid. Tracheobronchial tree: Patent. Nodes: No enlarged nodes. Bones: No acute bony abnormality. Soft tissues: Unremarkable. ABDOMEN/PELVIS- Liver: Enlarged. Encapsulated perihepatic ascites/fluid along left lobe. Micronodular contour. Gallbladder: Stone. Wall thickening. Spleen: Unremarkable. Pancreas: Unremarkable. Adrenal glands: Unremarkable. Kidneys: Right kidney- No hydronephrosis. No renal stones. Left kidney- No hydronephrosis. No renal stones. Distal esophagus/stomach: Gastric antral wall thickening. Small bowel loops: Normal caliber and wall thickness. Small duodenal diverticulum. Colon: A few diverticula. Normal caliber and wall thickness. Normal RLQ appendix. Nodes: No enlarged nodes. Peritoneum: No ascites. No free air. Urinary bladder: Unremarkable. Prostate: Unremarkable. Bones: No acute bony abnormality. Soft tissues: Unremarkable. Aorta: No aneurysm or dissection. IVC: Unremarkable. Main portal vein/SMV/splenic vein: Patent. IMPRESSION: CHEST- 1. No acute abnormality, other than bibasilar atelectasis. ABDOMEN/PELVIS- 1. Gastric ulcer and/or gastritis. Possibility of microperforation given organized perihepatic ascites and/or fluid collection or abscess. 2. Gallstone with nonspecific gallbladder wall thickening. If concern for cholecystitis, consider ultrasound and/or HIDA scan. Reviewed, dictated and finalized at location R. ER FIRE CONTROL TECHNICIAN IMPRESSION: CHEST- 1. No acute abnormality, other than bibasilar atelectasis. ABDOMEN/PELVIS- 1. Gastric ulcer and/or gastritis. Possibility of microperforation given organ ized perihepatic ascites and/or fluid collection or abscess. 2. Gallstone with nonspecific gallbladder wall thickening. If concern for chol ecystitis, consider ultrasound and/or HIDA scan.
--- NOTE | ~2025-09-12 | CT_ITS ---
EXAMINATION: CTA chest PE protocol DATE: 09/16/2025 14:20 INDICATION: Rule out PE TECHNIQUE: Computed tomography angiography (CTA) of the chest was performed with 100 mL Omnipaque-350 intravenous contrast timed to evaluate the pulmonary arteries. Coronal maximum intensity projection 3D-reconstructions were created by the technologist. The dose-length product was 938.86 mGy-cm. COMPARISON: September 12, 2025 FINDINGS: No pulmonary emboli or thoracic aortic aneurysm/dissection. The main pulmonary artery measures 3.9 cm in diameter. Right and left pulmonary arteries also mildly enlarged. Small to moderate bilateral pleural effusions increased in size along with subsegmental atelectatic changes. Some air bronchograms are also present in the lung bases. The remaining lung cowan are clear. Central large airways are patent. Heart size normal. Trace pericardial effusion. Central and large airways are open. Bony thorax appears intact. IMPRESSION: 1. No pulmonary emboli or thoracic aortic aneurysm/dissection. 2. Small to moderate sized bilateral pleural effusions with increased atelectatic changes and some air bronchograms which could be associated with developing pneumonia. 3. Prominent pulmonary arteries suggesting pulmonary arterial hypertension. Reviewed, dictated and finalized at location A. IONIZER OPERATOR IMPRESSION: 1. No pulmonary emboli or thoracic aortic aneurysm/dissection. 2. Small to moderate sized bilateral pleural effusions with increased atelectat ic changes and some air bronchograms which could be associated with developing pneumonia. 3. Prominent pulmonary arteries suggesting pulmonary arterial hypertension.
--- NOTE | ~2025-09-12 | CT_ITS ---
EXAMINATION: CT guide absc cath placement DATE: 09/17/2025 12:20 INDICATION: Perihepatic abscess TECHNIQUE: The procedure including the risks and benefits was discussed with the patient. Risks discussed included bleeding and infection. The patient understood the risks and benefits and agreed to proceed. The patient was confirmed to be receiving appropriate antibiotic coverage. The skin overlying the subxiphoid anterior upper abdomen was prepped and draped in usual sterile fashion. Anesthetic was administered with 1% lidocaine subcutaneously. Utilizing CT guidance an 18-gauge trochar needle was inserted into the left perihepatic fluid collection. The inner stylette was removed and a J-wire advanced into the fluid collection with position confirmed by CT. Needle was removed and utilizing Seld yvette technique the tract was serially dilated over the wire to 9 Fr. A 8.5 Fr pigtail catheter was then placed and the loop formed and locked with position confirmed by CT. The catheter was stitched to the skin with suture. Antibiotic ointment and a sterile dressing were applied. An additional adhesive fixation device was applied. The dose-length product was 320.66 mGy-cm. The catheter was then attached to suction drainage and was draining additional fluid at the conclusion of the procedure. FINDINGS: CT images demonstrate the catheter within the anterior left perihepatic fluid collection. 40 mL fluid was aspirated for testing. IMPRESSION: 1. Successful CT-guided left perihepatic abscess drainage catheter placement. 2. 40 mL fluid was sent for aerobic and anaerobic cultures. 3. The catheter will be managed by Dr. Brady. Reviewed, dictated and finalized at location A. ING MACHINE OPERATOR
--- NOTE | ~2025-09-12 | US_ITS ---
ULTRASOUND ABDOMEN LIMITED (RIGHT UPPER QUADRANT) Clinical History: ruq pain Comparison: CT chest abdomen pelvis same day Technique: Right upper quadrant sonography Findings: Liver: Enlarged. Echogenic. Micronodular contour. No intrahepatic biliary ductal dilatation. Normal hepatopedal flow main portal vein. Common Duct: 6 mm. Gallbladder: Stone. Wall thickening. No pericholecystic fluid. Positive sonographic Proctor's sign per technologist report. Pancreas: Obscured by bowel gas. IMPRESSION: 1. Consistent with acute cholecystitis. Reviewed, dictated and finalized at location R. S REPRESENTATIVE METALS
--- NOTE | ~2025-09-12 | XR_ITS ---
EXAM/PROCEDURE: XR UGI water soluble wo kub HISTORY: Possible perforated gastric ulcer COMPARISON: CT exam from September 12 TECHNIQUE: Single contrast upper GI performed. 300 mL Omnipaque 240 contrast. Fluoroscopy time: 1.4 minutes DAP: 369.543 Dc per square centimeter Number of images: 38 NOTE: Patient has significant difficulty in repositioning. Contrast also remained somewhat stagnant within the fundus and upper body portion despite repositioning the patient. FINDINGS: On ship pilot images, scattered loops of gas dilated bowel and stomach with no large amount of free air. On ingestion of oral contrast, tertiary contractions in the esophagus and small hiatal hernia noted. The esophagus otherwise appears grossly normal. The stomach required 300 mL/approximately 100 mL of water for contrast extending into the gastric antrum and duodenum. No obvious mass or perforation seen. No extravasation of contrast seen. No large ulceration identified on this directed single contrast exam. Small diverticulum noted along the superior margin of the horizontal portion of the duodenum. IMPRESSION: 1. Exam limited as above. No large ulceration, perforation or extravasation of contrast 2. Tertiary contractions in the esophagus suggest mild esophagitis; small hiatal hernia also noted. 3. Recommend follow-up KUB in 4 to 6 hours to evaluate enteric transit of contrast. Reviewed, dictated and finalized at location A. OPROSTHOLOGIST IMPRESSION: 1. Exam limited as above. No large ulceration, perforation or extravasation of contrast 2. Tertiary contractions in the esophagus suggest mild esophagitis; small hiata l hernia also noted. 3. Recommend follow-up KUB in 4 to 6 hours to evaluate enteric transit of contr ast.
--- NOTE | ~2025-09-12 | XR_ITS ---
Examination: XR chest 2V Clinical History: CP/SOB Comparison: 12/03/2022 Technique: PA and Lateral Findings: Heart size upper normal. Bibasilar atelectasis. No acute bony abnormality. IMPRESSION: 1. No acute cardiopulmonary findings. Reviewed, dictated and finalized at location R. IC RELATIONS ACCOUNT SUPERVISOR
--- NOTE | ~2025-09-12 | XR_ITS ---
EXAMINATION: XR chest 1V portable COMPARISON: No comparisons available. HISTORY: shortness of breath FINDINGS: Moderate pulmonary venous congestion. Minimal basilar infiltrates and effusions. No pneumothorax. Moderate cardiomegaly. Mediastinal and hilar contours are within normal limits. Bony thorax no acute abnormality. Miscellaneous: None Impression: CHF. Findings are progressed compared to the previous study Reviewed, dictated and finalized at location P. UNTS SPECIALIST Impression: CHF. Findings are progressed compared to the previous study
--- OUTSIDE RECORDS SUMMARY | 2025-09-12 06:43 | XMS_ITS | Clinical Summary ---
Author Organization [facility] Address [address] [place] [address] Care Team Providers Care Rooming House Operator Name Role Phone Yinka Duval MD Primary Care Provider + [phone] Allergies No known active allergies Medications ibuprofen-acetam inophen 125-250 mg tabletIndication s:Pain Take 2 tablets by mouth 2 (two) times a day as needed (pain). Indications: pain Active acetaminophen (TYLENOL) 500 mg tabletIndication s:Pain Take 500 mg by mouth every 4 (four) hours as needed for pain. Indications: pain Active glucos sul 2KCl/msm/chond/C /Mn (GLUCOSAMINE CHONDROITIN ORAL)Indications :arthritis Take 2 tablets by mouth daily. Indications: arthritis Active Active Problems Problem Noted Date Diagnosed Date Ulcers of both lower legs, limited to breakdown of skin 09/21/2021 Assessment & Plan (09/26/2021 8:28 AM MAILER): Impression: Patient has bilateral lower extremity ulcerations; right anterior and posterior calf, and anterior medial and posterior left calf that had been present for the past year to year and a half. Patient reports he was uninsured for several years until recently and was instructed by his primary care provider to apply Neosporin to his wounds. Lipodermatosclerosis is noted to bilateral lower extremities. Patient has bilateral distal pulses. Plan: Recommend daily dressing changes with calcium alginate, Kerlix and Edwin wrap. Patient to follow-up in 2-3 weeks in the Wound Clinic. We will obtain baseline arterial Doppler. Patient seen and evaluated with Dr. Primitivo Dsouza. Morbid obesity with BMI of 60.0-69.9, adult 08/31 Assessment & Plan (09/21/2021 9:10 AM MAILER): Impression: Patient is morbidly obese. Plan: Discussed with the patient the importance of diet and exercise and lifestyle modifications. Hereditary lymphedema 09/20/2021 Assessment & Plan (10/06/2021 9:54 AM MAILER): Impression: Patient with chronic edema to bilateral lower extremities. Patient has a family history of lymphedema. Lipodermatosclerosis noted to bilateral anterior aspect of lower extremities. Patient has significant chronic edema, hyperpigmentation, and swelling from the toes to the groin, has been utilizing compression therapy 20-30 mm of mercury for greater than 4 weeks, leg elevation, and exercise without improvement of symptoms. Plan: Recommend compression therapy of Tubigrip and Edwin wraps to bilateral lower extremities. Recommend evaluation for lymphedema pumps. Patient to follow-up in 2-3 weeks in the Wound Clinic. Surgical History Surgery Date Site/Laterality Comments TONSILLECTOMY Medical History Medical History Date Comments No pertinent past medical history Lymphedema Family History Medical History Relation Name Comments Coronary artery disease Other Diabetes type I Other Hypertension Other Relation Name Status Comments Other Social History Tobacco Use Types Packs/Day Years Used Date Smoking Tobacco: Former Cigarettes Smokeless Tobacco: Never OASIS D0700: Social Isolation Answer Da te Recorded Frequency of experiencing loneliness or isolatio n Never 03/16/2023 Sex and Gender Information Value Date Recorded Sex Assigned at Not on file Legal Sex Male 12:07 PM CDT Gender Identity Not on file Sexual Orientation Not on file Last Filed Vital Signs Vital Sign Reading Time Taken Comments Blood Pressure 132/90 04/12/2023 12:25 PM CDT Pulse 75 04/12/2023 12:25 PM CDT Temperature 36.8 C (98.3 F) 04/12/2023 12:25 PM CDT Respiratory Rate 18 04/12/2023 12:25 PM CDT Oxygen Saturation 96% 04/12/2023 12:25 PM CDT Inhaled Oxygen Concentration - - Weight 145.2 kg (320 lb) 03/16/2023 12:49 PM CDT Height 170.2 cm (5' 7) 03/16/2023 12:49 PM CDT Body Mass Index 50.12 03/16/2023 12:49 PM CDT Plan of Treatment Health Maintenance Due Date Last Done Comments Colon Cancer Screening-Colonoscopy 1967 Depression Screening 1967 Hepatitis C Screening 1967 Prostate Cancer Screening-PSA 1967 DTaP/Tdap/Td Vaccine (1 - Tdap) 1978 Hepatitis B Screening 1985 Regular Well Visit/Exam 18-64 1985 Zoster Vaccine (1 of 2) 2017 Covid-19 Vaccine (3 - 2024-2 6 season) 2025 03/09/2021, 02/13/2021 Influenza Vaccine (#1) 2025 Pneumococcal vaccine <65 Aged Out No longer eligible based on patient's age to complete this topic Insurance [employer] Care Teams Rooming House Operator Relationship Specialty Start Date End Date Yinka Duval MD PCP - General Family Medicine 07/28/21
--- OUTSIDE RECORDS SUMMARY | 2025-09-12 06:43 | XMS_ITS | Clinical Summary ---
Author Organization [facility] Address [facility] [place] [address] Care Team Providers Care Avionics Systems Engineer Name Role Phone None, Provider MD Primary Care Provider Unavaila ble Allergies No known active allergies Medications No known medications Social History Tobacco Use Types Packs/Day Years Used Date Smoking Tobacco: Never Assessed Sex and Gender Information Value Date Recorded Sex Assigned at Male 02/21/2025 3:42 PM CDT Legal Sex Male 2:59 PM CDT Gender Identity Not on file Sexual Orientation Not on file Last Filed Vital Signs Vital Sign Reading Time Taken Comments Blood Pressure 159/88 02/21/2025 6:30 PM CDT Pulse 74 02/21/2025 6:40 PM CDT Temperature 36.3 C (97.4 F) 02/21/2025 3:20 PM CDT Respiratory Rate 21 02/21/2025 6:40 PM CDT Oxygen Saturation 95% 02/21/2025 6:40 PM CDT Inhaled Oxygen Concentration - - Weight 176.4 kg (389 lb) 02/21/2025 3:20 PM CDT Height 170.2 cm (5' 7) 02/21/2025 3:20 PM CDT Body Mass Index 60.93 02/21/2025 3:20 PM CDT Plan of Treatment Health Maintenance Due Date Last Done Comments Colorectal Cancer Screening Colonoscopy (10 Years) 1967 Annual Physical 1970 Hepatitis C 1985 DTaP, Tdap and Td Vaccines ( 1 - Tdap) 1986 Hepatitis B Vaccines (1 of 3 - 19+ 3-dose series) 1986 Pneumococcal Vaccine: 50+ Years (1 of 1 - PCV) 2017 Zoster Vaccines (1 of 2) 2017 COVID-19 Vaccine (3 - 2024-2 6 season) 2025 03/09/2021, 02/13/2021 Influenza Adult (#1) 2025 Hepatitis A Vaccines Aged Out No long er eligible based on patient's age to complete this topic Meningococcal B Vaccine Aged Out No l onger eligible based on patient's age to complete this topic Meningococcal Vaccine Aged Out No reji antelmo eligible based on patient's age to complete this topic RSV Immunizations Under 20 Months Aged Out No longer eligible b ased on patient's age to complete this topic Insurance [facility] MEDICARE Care Teams Avionics Systems Engineer Relationship Specialty Start Date End Date None, Provider, PCP - General UNKNOWN PHYSICIAN SPECIALTY 02/21/25
--- NOTE | 2025-09-12 06:50 | ECG_ITS ---
Test Date: 2025-09-12 06:51:52 Measurements Intervals [place] Rate: 123 P: 72 MT: 163 QRS: 121 QRSD: 75 T: 56 QT: 279 QTc: 400 Interpretive Statements SINUS TACHYCARDIA RIGHT AXIS DEVIATION PATTERN CONSISTENT WITH PULMONARY DISEASE ABNORMAL ECG No previous ECG available for comparison Electronically Signed On 09-12-2025 09:24:10 SENIOR CONTRACTS MANAGER by Mark Renner D.O.
[2025-09-12 07:04] LABS: Hematocrit 50.7 % (42.0-52.0); Hemoglobin 16.5 g/dL (14.0-18.0); Mean Corpuscular HGB Conc 32.5 g/dl (32-36); Mean Corpuscular Hemoglobin 28.8 pg (26-34); Mean Corpuscular Volume 88.6 fl (80-100); Platelet Count Result 185 k/mm3 (150-375); Red Blood Count 5.72 M/mm3 (4.6-6.20); White Blood Count 20.4 K/mm3 (4.5-10.0)
[2025-09-12 07:16] LABS: INR 1.2; Partial Thromboplastin Time 31.1 Seconds (22.3-36.8); Prothrombin Time 15.2 Seconds (11.1-14.7)
--- NOTE | 2025-09-12 07:16 | PC.NURSE ---
Took report on pt at 0763
[2025-09-12 07:21] LABS: Alanine Aminotransferase 14 U/L (6-50); Albumin Level 4.1 g/dL (3.5-5.1); Alkaline Phosphatase 134 U/L (38-126); Anion Gap 6 mmol/L (4-12); Aspartate Amino Transferase 31 U/L (17-59); Bilirubin,Total 2.3 mg/dL (0.2-1.3); Blood Urea Nitrogen 25 mg/dL (9-20); Calcium 8.9 mg/dL (8.4-10.2); Carbon Dioxide 29 mmol/L (22-30); Chloride 100 mmol/L (98-107); Estimated CRCL calculation 105 ml/min; Estimated Glomerular Filt Rate > 60; Glucose 131 mg/dL (65-110); Lipase 24 U/L (23-300); Potassium 3.9 mmol/L (3.4-5.0); Sodium 135 mmol/L (137-145); Total Protein 8.2 g/dL (6.3-8.2)
[2025-09-12] MEDS: SODIUM CHLORIDE 0.9% IV 1,000 ML 150 ML IV CONT (07:21)
[2025-09-12 07:25] LABS: Troponin I < 0.012 ng/mL (0.000-0.034)
[2025-09-12 07:33] LABS: Alveolar/Arterial O2 Gradient 57.9 mmHg; Fractional Inspired Oxygen 28 %; HCO3 ABG 24.2 mEq/l (22.0-26.0); Liters per Minute 2.0 LPM; Modified Allen's Test Pass; Oxygen Content ABG 21.6 %vol (16.0-22.0); Oxygen Saturation ABG 97.2 % (95.0-100.0); PCO2 ABG 40.3 mmHg (35.0-45.0); PO2 ABG 94.2 mmHg (80.0-100.0); PO2 FiO2 Ratio Arterial Blood 3.36 %; Site Drawn RIGHT RADIAL
--- OUTSIDE RECORDS SUMMARY | 2025-09-12 07:39 | XMS_ITS | Clinical Summary ---
Author Organization [facility] Address [address] [place] [address] Care Team Providers Care Nanoscience Technician Name Role Phone Yinka Duval MD Primary Care Provider + [phone] Allergies No known active allergies Medications ibuprofen-acetam [...] 09/21/2021 Assessment & Plan (09/26/2021 8:28 AM CHILD WELFARE ASSISTANT): Impression: Patient has bilateral lower extremity ulcerations; [...] 08/31 Assessment & Plan (09/21/2021 9:10 AM CHILD WELFARE ASSISTANT): Impression: Patient is morbidly obese. Plan: Discussed with the patient the importance of diet and exercise and lifestyle modifications. Hereditary lymphedema 09/20/2021 Assessment & Plan (10/06/2021 9:54 AM CHILD WELFARE ASSISTANT): Impression: Patient with chronic edema to bilateral [...] patient's age to complete this topic Insurance [employer] OOS P[employer] O[employer] OOS Care Teams Nanoscience Technician Relationship Specialty Start Date End Date Yinka Duval MD PCP - General Family Medicine 07/28/21
[2025-09-12 07:44] LABS: Band Neutrophils Percent 17 % (0-6); Eosinophils Absolute Manual 0.20 K/mm3 (0.02-0.50); Eosinophils Percent Manual 1 % (0-4); Lymphocytes Absolute Manual 0.81 K/mm3 (1.1-4.5); Lymphocytes Percent Manual 4 % (18-44); Monocytes Absolute Manual 0.61 K/mm3 (0.1-0.90); Monocytes Percent Manual 3 % (3-9); Neutrophils Absolute Manual 18.76 K/mm3 (1.3-6.7); Neutrophils Percent Manual 75 % (46-73); Total Cells Counted 100
[2025-09-12 07:45] LABS: Schistocytes None Seen
[2025-09-12] MEDS: PIPERACILLIN/TAZOBACTAM SOD 3.375 GM in SODIUM CHLORIDE 0.9% IV 50 ML 100 ML IVPB ×4 (08:29→23:34)
[2025-09-12 08:45] LABS: Add Urine Microscopic? YES; Appearance Urine Clear (Clear); Glucose Urine UA Negative (Negative); Leukocyte Esterase Ur Negative LEU/UL (Negative); Nitrate Urine Negative (Negative); Non Pathogenic Casts 0-2; Specific Grav Ur 1.043 (1.001-1.035)
[2025-09-12] MEDS: SODIUM CHLORIDE 0.9% IV 1,000 ML 999 ML IV CONT (09:05)
--- NOTE | 2025-09-12 09:05 | ED_ITS ---
HPI - General Adult General Chief complaint: Shortness of Breath/Dyspnea Stated complaint: SOB/CP/blood in urine Time Seen by Provider: 09/12/25 06:56 Source: patient and family Mode of arrival: ambulatory Limitations: no limitations History of Present Illness HPI narrative: 60-year-old with a history of morbid obesity, lymphedema of both lower extremities here with a complains of shortness of breath, abdominal pain. Patient states that for the past 3-4 days he has been having intermittent shortness of breath along with upper abdominal pain. Patient states 4 days ago he had pain in the upper abdomen which moved to his mid abdomen. Denies any nausea or vomiting complains that he had blood in his urine. No history of cough or fever or chills. No previous history COPD or asthma CHF. He is presently not on any medication. Onset (ago): day(s) (4) Location: abdomen Radiation: non-radiation Severity: severe Quality: aching Pain Consistency: constant Relieving factors: none Exacerbating factors: none Associated symptoms: shortness of breath Treatments prior to arrival: none Related Data Home Medications ?Medication ?Instructions ?Recorded ?Confirmed ?Last Taken ?Type ibuprofen 125 mg-acetaminophen 250 1 tablet PO Q8H PRN 04/05/23 03/04/25 Unknown History mg tablet (Advil Dual Action) Allergies Allergy/AdvReac Type Severity Reaction Status Date / Time No Known Allergies Allergy Unknown Verified 09/12/25 06:54 Review of Systems 2 Review of Systems: All systems reviewed & are unremarkable except as noted in HPI and below Constitutional: Constitutional: Reports no additional constitutional complaints Eyes: Eyes: Reports no additional eye complaints ENT: Reports system reviewed and no additional complaints, except as documented Cardiovascular: Cardiovascular: Reports no additional cardiovascular complaints Respiratory: Respiratory: Reports as per HPI Gastrointestinal: Gastrointestinal: Reports as per HPI Musculoskeletal: Musculoskeletal: Reports no additional musculoskeletal complaints [facility] Past Medical History Medical History Contact dermatitis Elevated blood pressure reading Bilateral primary osteoarthritis of knee BMI 50.0-59.9, adult Other hyperlipidemia Lymphedema, not elsewhere classified Low testosterone in male Localized edema Hypothyroidism, unspecified Elevated hemoglobin Dietary counseling and surveillance (04/22/17) Decreased libido Bilateral leg ulcer Elevated glucose Screening for prostate cancer Screening for lipid disorders BMI 60.0-69.9, adult Lymphedema No significant past medical history Surgical History Surgical History Hx of elbow surgery Hx of hand surgery History of tonsillectomy Family History Family History Father Family history of coronary artery disease Hypertension Congestive heart failure Mother Family history of coronary artery disease Hypertension Cerebrovascular accident Heart disease Sibling Heart disease Other Family history of type 1 diabetes mellitus Social History Social History Smoking status: Never smoker Second hand tobacco smoke exposure: Yes Alcohol intake: former Drinks per week: 0 Substance use: never Substance use type: does not use Lack of Transportation: No Lack of Food: Never True Current Housing: I Have Housing Concerned About Future Housing: No Difficulty Paying Gas/Electric Bills: No Difficulty Paying for Meds: No Currently Unemployed: No Education: High School Diploma/GED Difficulty w/ Childcare or Family Care: No Living arrangements: with family Occupation/Education: unemployed Gender identity (if verbalized by the patient): Male Spiritual care concerns: No Exam 2 Narrative: GENERAL: Well-appearing,Morbidly obese, and in no acute distress. HEAD: Normocephalic, atraumatic. EYES: PERRLA and EOMI. ENT: Nares clear, no rhinorrhea or epistaxis. Mucous membranes moist. NECK: Supple. CHEST: Clear to auscultation. No respiratory distress. HEART: Tachycardic . No murmur heard. Normal peripheral pulses. ABDOMEN: Morbidly obese abdomen , diffuse tenderness , normal active bowel sounds. EXTREMITIES: Normal range of motion. Bilateral Lymphedema SKIN: Warm, dry, no rash. NEURO: No focal deficits. Alert and oriented x3. PSYCH: Normal mood and affect. Course Course Emergency Course: Patient upon arrival was tachycardic and diffuse abdominal pain , Labs and Ct were ordered , NS 1 lt bolus given and then 150ml /hr , blood cultures were drawn and IV zosyn was given , CT showed possible microperforation vs abscess in the gastric ,Dr. Brady was consulted ,Discussed with Hospitalist will admit . informed pt and his about the lab and CT findings. agreed wiuth admission. Vital Signs Vital signs: Vital Signs Temperature 36.5 C 09/12/25 06:45 Pulse Rate 129 H 09/12/25 06:45 Respiratory Rate 26 H 09/12/25 06:45 Blood Pressure 183/74 H 09/12/25 06:45 Pulse Oximetry 92 09/12/25 06:45 Oxygen Delivery Room Air 09/12/25 06:45 Temperature 36.5 C 09/12/25 06:45 Pulse Rate 117 H 09/12/25 07:34 Respiratory Rate 28 H 09/12/25 07:34 Blood Pressure 112/51 L 09/12/25 08:32 Pulse Oximetry 98 09/12/25 08:32 Oxygen Delivery Nasal Cannula 09/12/25 06:54 Oxygen Flow Rate 2 09/12/25 06:54 MDM MDM Narrative Medical decision making narrative: 60-year-old with a history of obesity, lymphedema presents to the ER with diffuse abdominal pain, shortness of breath on exam he is tachycardic and has diffuse tenderness of the abdomen bladder lab and CT findings. CT of abdomen and chest as well microperforation of the gastric ulcer versus the cholecystitis. IV antibiotic was initiated surgery was consulted. Differential Diagnosis Differential Diagnosis: Cholecystitis,, pancreatitis, diverticulitis, pneumonia Medical Records I have reviewed the following patient records and this information was taken into consideration when formulating the assessment and plan.: previous labs and previous ER visits Lab Data [facility] Lab Attestation statement: I personally reviewed the patient's lab results. 09/12/25 06:56 09/12/25 06:56 Labs: Lab Results 09/12/25 09/12/25 09/12/25 Range/Units 06:56 07:43 08:27 WBC 20.4 H (4.5-10.0) K/mm3 RBC 5.72 (4.6-6.20) M/mm3 Hgb 16.5 (14.0-18.0) g/dL Hct 50.7 (42.0-52.0) % MCV 88.6 (80-100) fl MCH 28.8 (26-34) pg MCHC 32.5 (32-36) g/dl RDW 14.1 (11.5-14.5) % Plt Count 185 (150-375) k/mm3 MPV 9.2 (7.4-10.4) fl Immature Gran % (Auto) Not Reportable Neut % (Auto) Not Reportable Lymph % (Auto) Not Reportable [place] % (Auto) Not Reportable Eos % (Auto) Not Reportable Baso % (Auto) Not Reportable Lymph # (Auto) Not Reportable [place] # (Auto) Not Reportable Eos # (Auto) Not Reportable Baso # (Auto) Not Reportable Abs Immat Gran (auto) Not Reportable Absolute Neuts (auto) Not Reportable Absolute Nucleated RBC Not Reportable Total Counted 100 Neutrophils % (Manual) 75 H (46-73) % Band Neutrophils % 17 H (0-6) % Lymphocytes % (Manual) 4 L (18-44) % Monocytes % (Manual) 3 (3-9) % Eosinophils % (Manual) 1 (0-4) % Nucleated RBC % Not Reportable Abs Neuts (Manual) 18.76 H (1.3-6.7) K/mm3 Abs Lymphs (Manual) 0.81 L (1.1-4.5) K/mm3 Abs Monocytes (Manual) 0.61 (0.1-0.90) K/mm3 Absolute Eos (Manual) 0.20 (0.02-0.50) K/mm3 Platelet Estimate Adequate (Adequate) Schistocytes None seen PT 15.2 H (11.1-14.7) Seconds INR 1.2 APTT 31.1 (22.3-36.8) Seconds Sodium 135 L (137-145) mmol/L Potassium 3.9 (3.4-5.0) mmol/L Chloride 100 (98-107) mmol/L Carbon Dioxide 29 (22-30) mmol/L Anion Gap 6 (4-12) mmol/L BUN 25 H D (9-20) mg/dL Creatinine 1.03 (0.7-1.3) mg/dL Estim Creat Clear Calc 105 ml/min Estimated GFR > 60 (59 - ) Glucose 131 H (65-110) mg/dL Lactic Acid 0.9 (0.7-2.0) mmol/L Calcium 8.9 (8.4-10.2) mg/dL Total Bilirubin 2.3 H (0.2-1.3) mg/dL AST 31 (17-59) U/L ALT 14 (6-50) U/L Alkaline Phosphatase 134 H (38-126) U/L Troponin I < 0.012 (0.000-0.034) ng/mL Total Protein 8.2 (6.3-8.2) g/dL Albumin 4.1 (3.5-5.1) g/dL Lipase 24 (23-300) U/L Urine Color Dark yellow (Yellow) Urine Appearance Clear (Clear) Urine pH 5.5 (5.0-9.0) Ur Specific [place] 1.043 H (1.001-1.035) Urine Protein 2+ H (Negative) mg/dL Urine Glucose (UA) Negative (Negative) mg/dL Urine Ketones Trace H (Negative) mg/dL Ur Blood (Man) Negative (Negative) Urine Nitrate Negative (Negative) Urine Bilirubin 2+ H (Negative) Urine Urobilinogen 4.0 H (<2.0) mg/dL Leukocyte Esterase Rfl Negative (Negative) NIMISHA/UL Urine RBC 0-2 (0-2) /hpf Urine WBC 0-5 (0-3) /hpf Ur Squamous Epith Cells Occasional (Few) /hpf Urine Bacteria None seen /hpf Urine Casts 0-2 ABG Data ABG results: 09/12/25 07:29 Puncture Site Right radial ABG pH 7.397 ABG pCO2 40.3 ABG pO2 94.2 ABG PO2/FiO2 Ratio 3.36 ABG HCO3 24.2 ABG O2 Saturation 97.2 ABG O2 Content 21.6 ABG Base Excess -0.5 A-a Gradient 57.9 Oxyhemoglobin 96.0 Total Hemoglobin 16.0 O2 Delivery Device Nasal cannula O2 Liters/Min 2.0 FiO2 28 Imaging Data Radiologist's impression: ITS Impressions Chest/Abdomen/Pelvis CT 09/12/25 08:10 IMPRESSION: CHEST- 1. No acute abnormality, other than bibasilar atelectasis. ABDOMEN/PELVIS- 1. Gastric ulcer and/or gastritis. Possibility of microperforation given organized perihepatic ascites and/or fluid collection or abscess. 2. Gallstone with nonspecific gallbladder wall thickening. If concern for cholecystitis, consider ultrasound and/or HIDA scan. Chest X-Ray 09/12/25 08:33 IMPRESSION: 1. No acute cardiopulmonary findings. ECG Data EKG #1: ECG completion date: 09/12/25 ECG completion time: 06:53 tachycardia (123), no ectopy, no ST changes, normal QRS and NL axis Critical Care Time Critical Care Time Critical Care Time: Yes Time Type: Intermittent Initial evaluation, discuss w/ involved parties, attempting to gather old records: 20 minutes Documenting medical record: 10 minutes Review of results (EKG's, labs, imaging): 10 minutes Serial repeat bedside evaluation: 20 minutes Discussing case with multiple memebers of the care team and consultants: 10 minutes Total Critical Care Time: 70 Discharge Plan Discharge Clinical Impression: SIRS (systemic inflammatory response syndrome) Abdominal pain Qualifiers: Abdominal location: generalized Qualified Code(s): R10.84 - Generalized abdominal pain Patient Disposition: Still a Patient Condition: Stable Patient Language: Ukrainian Prescriptions: No Action Advil Dual Action 125-250 mg tablet 1 tablet PO Q8H PRN triamcinolone acetonide 0.1 % cream 1 applic topical BID Qty: 80 0RF Follow-up/Referrals: Yinka Duval MD [Primary Care Provider, [facility]] Time of Disposition: 09:07
[2025-09-12 09:59] LABS: Troponin I < 0.012 ng/mL (0.000-0.034)
[2025-09-12] MEDS: PANTOPRAZOLE SODIUM IV 40 MG VIAL IV PUSH ×2 (10:07→17:21)
--- NOTE | 2025-09-12 10:13 | WPCEDHO ---
ED Hand Off Checklist All vitals saved: y IV Site documented: y All med administrations documented: y Triage Note Triage Note Patient arrives with cc of SOB, 09/12/25 06:45 CP, and hematuria. Patient states he has some sob and CP for the past 5 days and hematuria that started today. Patient states he took some advil with no relief. Patient denies any dysuria. Patient states its mostly sob, pain with breathing and points to upper abd/epigastric region. Patient state he also has some R sided abd pain that is now more on L. Patient states the pain is worse in his chest is worse with exertion. Allergies No Known Allergies Allergy (Unknown, Verified 09/12/25 06:54) PER ER ADMISSION ORDERS 08/06/05 Family History (Last Reviewed 09/12/25 @ 09:22 by Elpidio Sears MD) Father Family history of coronary artery disease Hypertension Congestive heart failure Mother Family history of coronary artery disease Hypertension Cerebrovascular accident Heart disease Sibling Heart disease Other Family history of type 1 diabetes mellitus Active Medications including assessments/comments Sodium Chloride (Normal Saline Iv) 1,000 mls @ 150 mls/hr IV CONT .Q6H40M STA Stop: 09/12/25 13:55 Last Admin: 09/12/25 07:21 Dose: 150 mls/hr Documented By: ANT Infusion/Titration Document 09/12/25 07:21 ANT (Rec: 09/12/25 07:22 ANT [id number]) Intake IV Site Peripheral Access Left Antecubital Container Volume 1,000 Waste Amount 0 Dosing Infusion Rate 150 Cumulative Dose Not Applicable Increase/Decrease Started Elapsed Time Elapsed Time ( 0m minutes) Pantoprazole Sodium (Pantoprazole Sodium Iv 40 Mg Vial) 40 mg IV PUSH BID [facility] Last Admin: 09/12/25 10:07 Dose: 40 mg Documented By: ANT Administered/Completed Medications Discontinued Medications Aspirin (Aspirin 81 Mg Chewable Tablet) 324 mg PO ONCE STA Stop: 09/12/25 06:51 Last Admin: 09/12/25 07:29 Dose: Not Given Documented By: ANT Non-Admin Reason: No Dose Required Piperacillin Sod/Tazobactam (Sod 3.375 gm/ Sodium Chloride) 50 mls @ 100 mls/hr IVPB ONCE STA Stop: 09/12/25 08:34 Last Infusion: 09/12/25 09:05 Dose: Infused Documented By: Admin: 09/12/25 08:29 Dose: 100 mls/hr Documented By: BLAKE Sodium Chloride (Normal Saline Iv) 1,000 mls @ 999 mls/hr IV CONT .Q1H1M STA Stop: 09/12/25 09:05 Last Infusion: 09/12/25 10:01 Dose: Infused Documented By: Admin: 09/12/25 09:05 Dose: 999 mls/hr Documented By: BLAKE Notes 09/12/25 07:16 Nurse Note by Jami Barbosa Took report on pt at 0710 Initialized on 09/12/25 07:16 - END OF NOTE Interventions/Assessments Cardiac Monitoring Start: 09/12/25 06:40 Freq: Status: Active Protocol: Document 09/12/25 06:51 [facility] (Rec: 09/12/25 06:54 [facility] [id number]) Water Inspector Assessment Water Inspector Yes Applied Pulse Rate (60-100) 120 H EKG Rythm Sinus Tachycardia IV / Saline Lock, Insert Start: 09/12/25 06:50 Freq: STAT Status: Active Protocol: Document 09/12/25 06:51 [facility] (Rec: 09/12/25 06:54 [facility] [id number]) IV Assessment Peripheral Access Left Antecubital IV Catheter Access Initiated IV Insertion Date 09/12/25 IV Insertion Time 06:51 Catheter Gauge 18 IV Insertion 1 Attempts Ultrasound Used for No Placement IV Site Assessment WNL IV Care and WNL Maintenance PA: Cardiovascular Assessment Start: 09/12/25 06:40 Freq: Status: Active Protocol: Document 09/12/25 06:51 [facility] (Rec: 09/12/25 06:54 [facility] [id number]) Cardiovascular Assessment Cardiovascular Chest Pain,Dyspnea Symptoms Skin Description Normal Color Heart Sounds Normal Jugular Vein None Distention Rhythm/Strength Monitor Rhythm Regular Pulse Strength 3+ Normal EKG Rythm Sinus Tachycardia Chest Pain Assessment Chest Pain Intensity 4 Precipitating Physical Exertion Factors Jugular Vein None Distention PA: Respiratory Assessment Start: 09/12/25 06:40 Freq: Status: Active Protocol: Document 09/12/25 06:51 [facility] (Rec: 09/12/25 06:54 [facility] [id number]) Respiratory Assessment Symptoms Shortness of Breath at Rest,Shortness of Breath With Exertion Effort Normal Pattern Regular Depth Normal Chest Expansion Symmetrical Adult Capillary Normal/Less than 2 Seconds Refill Anterior Bilateral Throughout Phase Inspiratory & Expiratory Lung Sounds Clear Cough Description None Cough Reflex Present Oxygen Delivery Oxygen Delivery Room Air Pulse Oximetry (90- 92 100) Last Vital Signs Temperature 97.7 F 09/12/25 06:45 Pulse Rate 110 H 09/12/25 10:04 Respiratory Rate 18 09/12/25 10:04 Pulse Oximetry 97 09/12/25 10:04 Blood Pressure 127/63 09/12/25 10:04 Blood Pressure Mean 84 09/12/25 10:04 Blood Pressure Position Sitting 09/12/25 06:45 Oxygen Delivery Nasal Cannula 09/12/25 06:54 Oxygen Flow Rate 2 09/12/25 06:54 Weight 168.2 kg 09/12/25 06:45 Last Result - Abnormals Only WBC 20.4 K/mm3 (4.5-10.0) H 09/12/25 06:56 Neutrophils % (Manual) 75 % (46-73) H 09/12/25 06:56 Band Neutrophils % 17 % (0-6) H 09/12/25 06:56 Lymphocytes % (Manual) 4 % (18-44) L 09/12/25 06:56 Abs Neuts (Manual) 18.76 K/mm3 (1.3-6.7) H 09/12/25 06:56 Abs Lymphs (Manual) 0.81 K/mm3 (1.1-4.5) L 09/12/25 06:56 PT 15.2 Seconds (11.1-14.7) H 09/12/25 06:56 Sodium 135 mmol/L (137-145) L 09/12/25 06:56 BUN 25 mg/dL (9-20) H D 09/12/25 06:56 Glucose 131 mg/dL (65-110) H 09/12/25 06:56 Total Bilirubin 2.3 mg/dL (0.2-1.3) H 09/12/25 06:56 Alkaline Phosphatase 134 U/L (38-126) H 09/12/25 06:56 Ur Specific [place] 1.043 (1.001-1.035) H 09/12/25 08:27 Urine Protein 2+ mg/dL (Negative) H 09/12/25 08:27 Urine Ketones Trace mg/dL (Negative) H 09/12/25 08:27 Urine Bilirubin 2+ (Negative) H 09/12/25 08:27 Urine Urobilinogen 4.0 mg/dL (<2.0) H 09/12/25 08:27 Most Recent Suicide Severity Rating Suicide Severity Rating NO RISK INDICATED 09/12/25 06:45
[2025-09-12] MEDS: SODIUM CHLORIDE 0.9% IV 1,000 ML 125 ML IV CONT ×2 (10:19→17:21)
--- NOTE | 2025-09-12 10:45 | ADMGEN ---
This patient, Madhu Leigh, was admitted to IMU Room 212-01. Patient/family oriented to hospital policies and general routines including ID bracelet, bed and alarms, visiting hours, pain management, procedures, bathroom and other care routines, personal items, smoking policy, room service/diet, and visiting hours. Information on how to activate the Rapid Response Team has been discussed. Patient/Family are encouraged to report perceived risks to care and to ask questions if they do not understand what they are told or what they should do.
--- NOTE | 2025-09-12 11:19 | WNDPHOTO ---
PHOTO ONLY - See Nursing Notes and/ or assessments for documentation.
--- NOTE | 2025-09-12 11:32 | PM.IMHP2 ---
H&P: HPI History of Present Illness Date/Time: 09/12/25 11:32 Chief Complaint: abd pain Narrative: 60 m with PMH of Lymphedema who presented to the ER on account of abd pain. Stated he was in usual state of health until 3 days prior to admission when he started having abd pain, sharp started in the upper abd pain, 5/10 but escalates to 10/10 with movement. Denies vomiting, diarrhea, chest pain but noted SOB. ER eval notable for IL 116 and RR 26, WBC 20.[address] AP showed gastric ulcer with gastritis and possible microperforation. US liver showed Acute cholecystitis. Gen surgery ws consulted prior to admission Review of Systems Review of Systems: All other systems were reviewed and negative except as noted in the HPI above PMFSH Past Medical History Medical History Contact dermatitis Elevated blood pressure reading Bilateral primary osteoarthritis of knee BMI 50.0-59.9, adult Other hyperlipidemia Lymphedema, not elsewhere classified Low testosterone in male Localized edema Hypothyroidism, unspecified Elevated hemoglobin Dietary counseling and surveillance (04/22/17) Decreased libido Bilateral leg ulcer Elevated glucose Screening for prostate cancer Screening for lipid disorders BMI 60.0-69.9, adult Lymphedema No significant past medical history Surgical History Surgical History Hx of elbow surgery Hx of hand surgery History of tonsillectomy Family History Family History Father Family history of coronary artery disease Hypertension Congestive heart failure Mother Family history of coronary artery disease Hypertension Cerebrovascular accident Heart disease Sibling Heart disease Other Family history of type 1 diabetes mellitus Social History Social History Smoking status: Never smoker Second hand tobacco smoke exposure: Yes Alcohol intake: former Drinks per week: 0 Substance use: never Substance use type: does not use Lack of Transportation: No Lack of Food: Never True Current Housing: I Have Housing Concerned About Future Housing: No Difficulty Paying Gas/Electric Bills: No Difficulty Paying for Meds: No Currently Unemployed: No Education: High School Diploma/GED Difficulty w/ Childcare or Family Care: No Living arrangements: with family Occupation/Education: unemployed Gender identity (if verbalized by the patient): Male Spiritual care concerns: No Meds Home Medications and Allergies Home Medications ?Medication ?Instructions ?Recorded ?Confirmed ?Type ibuprofen 125 mg-acetaminophen 250 1 tablet PO Q8H PRN pain 04/05/23 09/12/25 History mg tablet (Advil Dual Action) Allergies Allergy/AdvReac Type Severity Reaction Status Date / Time No Known Allergies Allergy Unknown Verified 09/12/25 10:58 Vital Signs Vital Signs - 24 hr 09/12/25 06:45 09/12/25 06:51 09/12/25 06:51 Temperature 97.7 F Pulse Rate 129 H 120 H Respiratory Rate 26 H Blood Pressure 183/74 H Pulse Oximetry 92 92 Oxygen Delivery Room Air Room Air Oxygen Flow Rate 09/12/25 06:54 09/12/25 07:34 09/12/25 08:22 Temperature Pulse Rate 117 H Respiratory Rate 28 H Blood Pressure 143/80 H Pulse Oximetry 96 97 97 Oxygen Delivery Nasal Cannula Oxygen Flow Rate 2 09/12/25 08:32 09/12/25 10:04 09/12/25 11:00 Temperature 98.1 F Pulse Rate 110 H 116 H Respiratory Rate 18 26 H Blood Pressure 112/51 L 127/63 135/71 Pulse Oximetry 98 97 98 Oxygen Delivery Oxygen Flow Rate 09/12/25 11:07 Temperature Pulse Rate Respiratory Rate Blood Pressure Pulse Oximetry 98 Oxygen Delivery Nasal Cannula Oxygen Flow Rate 2 Exam Narrative: General: alert and comfortable Eyes: EOMI, PERRLA ENNT External ears normal, Neck is supple, no masses, Respiratory systems: Clear to auscultation Cardiovascular S1, S2, normal rhythm, no murmur, rub, or gallop; no thrill or palpable murmurs on palpation. Gastrointestinal: soft, diffuse abd tenderness , and non-distended abdomen with no masses; BS present Skin: non pitting leg edema, with venous ulcer Musculoskeletal: no abnormality and no tenderness, normal ROM Neurologic: Alert and oriented x3, non focal Mental Status Exam: normal affect Results Labs Labs: Short CBC 09/12/25 Range/Units 06:56 WBC 20.4 H (4.5-10.0) K/mm3 Hgb 16.5 (14.0-18.0) g/dL Hct 50.7 (42.0-52.0) % Plt Count 185 (150-375) k/mm3 BMP 09/12/25 06:56 Sodium 135 L Potassium 3.9 Chloride 100 Carbon Dioxide 29 BUN 25 H D Creatinine 1.03 Glucose 131 H Calcium 8.9 Cardiac Enzymes 09/12/25 09/12/25 Range/Units 06:56 09:27 Troponin I < 0.012 < 0.012 (0.000-0.034) ng/mL Liver Function 09/12/25 Range/Units 06:56 Total Bilirubin 2.3 H (0.2-1.3) mg/dL AST 31 (17-59) U/L ALT 14 (6-50) U/L Alkaline Phosphatase 134 H (38-126) U/L Albumin 4.1 (3.5-5.1) g/dL Urine 09/12/25 Range/Units 08:27 Urine Color Dark yellow (Yellow) Urine Appearance Clear (Clear) Urine pH 5.5 (5.0-9.0) Ur Specific [place] 1.043 H (1.001-1.035) Urine Protein 2+ H (Negative) mg/dL Urine Glucose (UA) Negative (Negative) mg/dL Assessment and Plan Assessment and plan (1) Sepsis: Code(s): A41.9 - Sepsis, unspecified organism Status: Resolved Plan Sepsis From acute cholecystitis and gastric ulcer with possible perforation Tachycardia, tachypnea resolving. EBC 20.[address] showed gastric ulcer with possible perforation Liver Us showed acute cholecystitis Blood culture Continue Zosyn and PPI IV, IVF Gen surgery and GI consulted Gastric ulcer with possible perforation CT AP reviewed Gastritis PPI IV and IVF GI consulted Acute cholecystitis US liver reviewed Continue Zosyn and IVF Gen surgery consulted Lymphedema with venous ulcer Continue compression therapy Wound care consultd DVT prophylaxis on Sq Lovenox Full code SDM: Zulma Leigh
--- NOTE | 2025-09-12 13:07 | P.CONGS_ITS ---
Assessment and Plan Assessment and plan (1) Acute calculous cholecystitis: Code(s): K80.00 - Calculus of gallbladder with acute cholecystitis without obstruction Status: Acute Assessment and Plan: * I reviewed the CT and discussed the findings with the patient. There is no mention of free air on the CT, therefore I feel it is less likely that this is a perforated gastric ulcer. Patient symptoms are also not consistent with an acute perforation and would be more consistent with cholecystitis and possible cholangitis. He has been started on Zosyn and admitted for further treatment. Gallbladder ultrasound was done this morning and shows evidence of acute calculous cholecystitis. Discussed initial resuscitation with antibiotics and fluids. Will consider laparoscopic cholecystectomy if patient is showing some signs of improvement tomorrow. If findings are any worse, could consider repeat imaging and possible percutaneous cholecystostomy tube placement for source control. Keep patient NPO for now and will follow along with patient closely. (2) Abdominal pain: Qualifiers: Abdominal location: generalized Qualified Code(s): R10.84 - Generalized abdominal pain Code(s): R10.9 - Unspecified abdominal pain Status: Acute (3) SIRS (systemic inflammatory response syndrome): Code(s): R65.10 - Systemic inflammatory response syndrome (SIRS) of non-infectious origin without acute organ dysfunction Status: Acute (4) Abnormal CT of the abdomen: Code(s): R93.5 - Abnormal findings on diagnostic imaging of other abdominal regions, including retroperitoneum Status: Acute (5) Lymphedema: Code(s): I89.0 - Lymphedema, not elsewhere classified Status: Acute History of Present Illness Consult details Consult date: 09/12/25 Reason for consult: abdominal pain Requesting physician: Elpidio Sears MD Narrative: This is a 60-year-old man who I am asked to see for upper abdominal pain. He presented to the emergency department today with worsening abdominal pain that 1st started 3 days ago. He states that his pain started on and was upper abdominal and right upper quadrant. He did not eat anything on , but he does recall eating chicken fajitas on Saturday night. He was feeling chills on as well. He was having more right upper quadrant pain on Saturday and then on Saturday he had tried eaten biscuits and gravy last night for dinner. His pain became worse after this and he was also feeling his heart racing overnight. He states that he has not had anything this severe in the past but did have some mild symptoms similar to this about 6 months ago and went to [facility] and no cause was identified. He denies any recent alcohol use and denies daily alcohol use. He has been taking some pain meds since his symptoms started 3 days ago, but does not take daily NSAIDs. He denies tobacco use. He denies any prior history of peptic ulcer disease or significant heartburn/acid reflux. Review of Systems 2 Review of Systems: All systems reviewed & are unremarkable except as noted in HPI and below Eyes: Eyes: Denies change in vision ENT: Denies hearing loss, Denies neck pain and Denies sore throat Cardiovascular: Cardiovascular: Denies chest pain and Denies dyspnea Respiratory: Respiratory: Denies cough, Denies dyspnea and Denies wheezing Gastrointestinal: Gastrointestinal: Reports as per HPI Genitourinary: Genitourinary: Denies hematuria and Denies dysuria Musculoskeletal: Musculoskeletal: Denies arthralgias, Denies joint swelling and Denies neck pain Allergic/Immunologic: Allergic/Immunologic: Denies wheezing PMFSH Past Medical History Medical History Contact dermatitis Elevated blood pressure reading Bilateral primary osteoarthritis of knee BMI 50.0-59.9, adult Other hyperlipidemia Lymphedema, not elsewhere classified Low testosterone in male Localized edema Hypothyroidism, unspecified Elevated hemoglobin Dietary counseling and surveillance (04/22/17) Decreased libido Bilateral leg ulcer Elevated glucose Screening for prostate cancer Screening for lipid disorders BMI 60.0-69.9, adult Lymphedema No significant past medical history Surgical History Surgical History Hx of elbow surgery Hx of hand surgery History of tonsillectomy Family History Family History Father Family history of coronary artery disease Hypertension Congestive heart failure Mother Family history of coronary artery disease Hypertension Cerebrovascular accident Heart disease Sibling Heart disease Other Family history of type 1 diabetes mellitus Social History Social History Smoking status: Never smoker Second hand tobacco smoke exposure: Yes Alcohol intake: former Drinks per week: 0 Substance use: never Substance use type: does not use Lack of Transportation: No Lack of Food: Never True Current Housing: I Have Housing Concerned About Future Housing: No Difficulty Paying Gas/Electric Bills: No Difficulty Paying for Meds: No Currently Unemployed: No Education: High School Diploma/GED Difficulty w/ Childcare or Family Care: No Living arrangements: with family Occupation/Education: unemployed Gender identity (if verbalized by the patient): Male Spiritual care concerns: No Meds Home Medications and Allergies Home Medications ?Medication ?Instructions ?Recorded ?Confirmed ?Type ibuprofen 125 mg-acetaminophen 250 1 tablet PO Q8H PRN pain 04/05/23 09/12/25 History mg tablet (Advil Dual Action) Allergies Allergy/AdvReac Type Severity Reaction Status Date / Time No Known Allergies Allergy Unknown Verified 09/12/25 10:58 Vital Signs Vital Signs - 24 hr 09/12/25 06:45 09/12/25 06:51 09/12/25 06:51 Temperature 97.7 F Pulse Rate 129 H 120 H Respiratory Rate 26 H Blood Pressure 183/74 H Pulse Oximetry 92 92 Oxygen Delivery Room Air Room Air Oxygen Flow Rate 09/12/25 06:54 09/12/25 07:34 09/12/25 08:22 Temperature Pulse Rate 117 H Respiratory Rate 28 H Blood Pressure 143/80 H Pulse Oximetry 96 97 97 Oxygen Delivery Nasal Cannula Oxygen Flow Rate 2 09/12/25 08:32 09/12/25 10:04 09/12/25 10:36 Temperature Pulse Rate 110 H 121 H Respiratory Rate 18 Blood Pressure 112/51 L 127/63 Pulse Oximetry 98 97 Oxygen Delivery Oxygen Flow Rate 09/12/25 11:00 09/12/25 11:07 09/12/25 12:00 Temperature 98.1 F Pulse Rate 116 H 121 H Respiratory Rate 26 H Blood Pressure 135/71 Pulse Oximetry 98 98 Oxygen Delivery Nasal Cannula Oxygen Flow Rate 2 Exam 2 Const: General: alert; No acute distress Orientation/consciousness: patient oriented x3 Limitations: no limitations HENMT: Head: normocephalic and atraumatic Ears: hearing grossly normal bilaterally Face/Nose/Sinus: Normal external nose present and Normal nares present Mouth: Yes Normal oral and palatal mucosa present and Yes moist mucous membranes Eyes: General: appearance normal, both eyes and all related structures C onjunctivae: conjunctivae normal Sclera: sclerae normal Pupils: Equal, round and reactive pupils present EOM: EOMs intact bilaterally Neck: Neck: normal visual inspection, full ROM, no lymphadenopathy, supple and no JVD Lymphatic: no lymphadenopathy noted Chest: Chest palpation & inspection: normal inspection of the chest Resp: Effort & Inspection: normal respiratory effort and able to speak in complete sentences Auscultation: clear to auscultation bilaterally P ercussion: percussion normal Cardio: Jugular venous distension: no JVD Rate: regular rate Rhythm: r egular rhythm Heart sounds: S1 normal heart sound present and S2 normal heart sound present Peripheral pulses: Peripheral pulses 2+ throughout GI: Inspection: obesity GI Palp: Yes Tenderness to palpation present (GI) (Epigastric and right upper quadrant) and Yes Guarding due to palpation present (GI) (Epigastric and right upper quadrant) Auscultation: normal bowel sounds : General: Yes no CVA tenderness Back/Spine/Pelvis: Back: no CVA tenderness Skin: General skin exam: normal color and dry skin Neuro: General: patient oriented x3, gait normal, moves all extremities, no focal motor deficits and CN's II-XI intact bilaterally Cranial nerves: Yes Equal, round and reactive pupils present Speech: normal speech Extrem: General: normal to inspection and capillary refill normal Results Labs 09/12/25 06:56 09/12/25 06:56 Labs: Abnormal lab results 09/12/25 09/12/25 Range/Units 06:56 08:27 WBC 20.4 H (4.5-10.0) K/mm3 Neutrophils % (Manual) 75 H (46-73) % Band Neutrophils % 17 H (0-6) % Lymphocytes % (Manual) 4 L (18-44) % Abs Neuts (Manual) 18.76 H (1.3-6.7) K/mm3 Abs Lymphs (Manual) 0.81 L (1.1-4.5) K/mm3 PT 15.2 H (11.1-14.7) Seconds Sodium 135 L (137-145) mmol/L BUN 25 H D (9-20) mg/dL Glucose 131 H (65-110) mg/dL Total Bilirubin 2.3 H (0.2-1.3) mg/dL Alkaline Phosphatase 134 H (38-126) U/L Ur Specific [place] 1.043 H (1.001-1.035) Urine Protein 2+ H (Negative) mg/dL Urine Ketones Trace H (Negative) mg/dL Urine Bilirubin 2+ H (Negative) Urine Urobilinogen 4.0 H (<2.0) mg/dL Diabetes panel 09/12/25 Range/Units 06:56 Sodium 135 L (137-145) mmol/L Potassium 3.9 (3.4-5.0) mmol/L Chloride 100 (98-107) mmol/L Carbon Dioxide 29 (22-30) mmol/L BUN 25 H D (9-20) mg/dL Creatinine 1.03 (0.7-1.3) mg/dL Glucose 131 H (65-110) mg/dL Calcium 8.9 (8.4-10.2) mg/dL AST 31 (17-59) U/L ALT 14 (6-50) U/L Alkaline Phosphatase 134 H (38-126) U/L Total Protein 8.2 (6.3-8.2) g/dL Albumin 4.1 (3.5-5.1) g/dL Calcium panel 09/12/25 Range/Units 06:56 Calcium 8.9 (8.4-10.2) mg/dL Albumin 4.1 (3.5-5.1) g/dL Pituitary panel 09/12/25 Range/Units 06:56 Sodium 135 L (137-145) mmol/L Potassium 3.9 (3.4-5.0) mmol/L Chloride 100 (98-107) mmol/L Carbon Dioxide 29 (22-30) mmol/L BUN 25 H D (9-20) mg/dL Creatinine 1.03 (0.7-1.3) mg/dL Glucose 131 H (65-110) mg/dL Calcium 8.9 (8.4-10.2) mg/dL Adrenal panel 09/12/25 Range/Units 06:56 Sodium 135 L (137-145) mmol/L Potassium 3.9 (3.4-5.0) mmol/L Chloride 100 (98-107) mmol/L Carbon Dioxide 29 (22-30) mmol/L BUN 25 H D (9-20) mg/dL Creatinine 1.03 (0.7-1.3) mg/dL Glucose 131 H (65-110) mg/dL Calcium 8.9 (8.4-10.2) mg/dL Total Bilirubin 2.3 H (0.2-1.3) mg/dL AST 31 (17-59) U/L ALT 14 (6-50) U/L Alkaline Phosphatase 134 H (38-126) U/L Total Protein 8.2 (6.3-8.2) g/dL Albumin 4.1 (3.5-5.1) g/dL All other labs normal. Imaging Additional studies: ITS Impressions Chest/Abdomen/Pelvis CT 09/12/25 08:10 IMPRESSION: CHEST- 1. No acute abnormality, other than bibasilar atelectasis. ABDOMEN/PELVIS- 1. Gastric ulcer and/or gastritis. Possibility of microperforation given organized perihepatic ascites and/or fluid collection or abscess. 2. Gallstone with nonspecific gallbladder wall thickening. If concern for cholecystitis, consider ultrasound and/or HIDA scan. Chest X-Ray 09/12/25 08:33 IMPRESSION: 1. No acute cardiopulmonary findings. Abdomen Ultrasound 09/12/25 09:33 IMPRESSION: 1. Consistent with acute cholecystitis.
[2025-09-12] MEDS: MORPHINE SULFATE (*CRX) 4 MG/ML INJ IV PUSH ×3 (13:13→23:34)
--- NOTE | 2025-09-12 15:25 | ECG_ITS ---
Test Date: 2025-09-12 15:33:18 Measurements Intervals [place] Rate: 115 P: 70 UT: 171 QRS: 98 QRSD: 82 T: 38 QT: 292 QTc: 405 Interpretive Statements SINUS TACHYCARDIA CONSIDER RIGHT VENTRICULAR CONDUCTION DELAY DELAYED PRECORDIAL R/S TRANSITION ABNORMAL ECG Compared to ECG 09/12/2025 06:51:52 NO SIGNIFICANT CHANGE Electronically Signed On 09-12-2025 15:36:26 [employer]ILLIN[employer] DESIGN[employer] by Mark Renner D.O.
--- NOTE | 2025-09-12 15:38 | P.CONGI_ITS ---
Assessment and Plan Assessment and plan (1) Acute cholecystitis: Code(s): K81.0 - Acute cholecystitis Status: Acute Assessment and Plan: -The patient's clinical presentation, elevated WBC (persisting despite antibiotic treatment) , positive Proctor's sign, and imaging findings of cholelithiasis with a thickened gallbladder wall on both ultrasound and CT strongly suggest acute cholecystitis. Management will focus primarily on antibiotic therapy and close monitoring with a surgical evaluation for definitive treatment. The concurrent gastric wall thickening identified on CT is considered incidental due to the lack of correlating clinical evidence; therefore, it will be observed. - Following resolution of the cholecystitis, an elective EGD will be considered to evaluate the gastric wall thickening. Given the patient's comorbidities of morbid obesity and metabolic syndrome, and the imaging findings of a micronodular liver aspect along with a small amount of ascites, there is a high suspicion for chronic liver disease and potentially cirrhosis, which is supported by a prolonged INR. However, ascites can be related to acute cholecystitis. The patient will be followed in GI clinic for continued management of the suspected liver disease. If the patient undergoes laparoscopic cholecystectomy, a liver biopsy is desirable to better characterize the extent and etiology of the liver disease. Will discuss this with the surgical team. GI Consult Note Consult date/time: 09/12/25 15:38 Reason for consult: abdominal pain HPI: Madhu Leigh is a 60 year old male admitted with a history of morbid obesity and bilateral lower extremity lymphedema who presents with a 4 day history of intermittent epigastric and mid abdominal pain that increased from 5/10 to 10/10. Physical examination by surgery corroborates tenderness in upper hemiabdomen and automotive engineering technician reports a positive Proctor sign. Admission laboratory data shows WBC 20.4, hemoglobin 16.5, hematocrit 50.7, platelet count 185, INR 1.2, sodium 135, potassium 3.9, creatinine 1.03, total bilirubin 2.3, AST 31, ALT 14, and albumin 4.1. Ultrasound of the abdomen reveals a liver with micronodular aspect and a gallbladder stone with a thickened gallbladder wall. A CT scan confirms the micronodular aspect of the liver and thickened gallbladder wall, while also noting a thickened gastric wall consistent with gastritis versus gastric ulcer. There is a suggestion of micro perforation on CT, though no evidence of free air is described. Review of Systems 2 Eyes: Comments: No jaundice PMFSH Past Medical History Medical History Contact dermatitis Elevated blood pressure reading Bilateral primary osteoarthritis of knee BMI 50.0-59.9, adult Other hyperlipidemia Lymphedema, not elsewhere classified Low testosterone in male Localized edema Hypothyroidism, unspecified Elevated hemoglobin Dietary counseling and surveillance (04/22/17) Decreased libido Bilateral leg ulcer Elevated glucose Screening for prostate cancer Screening for lipid disorders BMI 60.0-69.9, adult Lymphedema No significant past medical history Surgical History Surgical History Hx of elbow surgery Hx of hand surgery History of tonsillectomy Family History Family History Father Family history of coronary artery disease Hypertension Congestive heart failure Mother Family history of coronary artery disease Hypertension Cerebrovascular accident Heart disease Sibling Heart disease Other Family history of type 1 diabetes mellitus Social History Social History Smoking status: Never smoker Second hand tobacco smoke exposure: Yes Alcohol intake: former Drinks per week: 0 Substance use: never Substance use type: does not use Lack of Transportation: No Lack of Food: Never True Current Housing: I Have Housing Concerned About Future Housing: No Difficulty Paying Gas/Electric Bills: No Difficulty Paying for Meds: No Currently Unemployed: No Education: High School Diploma/GED Difficulty w/ Childcare or Family Care: No Living arrangements: with family Occupation/Education: unemployed Gender identity (if verbalized by the patient): Male Spiritual care concerns: No Meds Home Medications and Allergies Home Medications ?Medication ?Instructions ?Recorded ?Confirmed ?Type ibuprofen 125 mg-acetaminophen 250 1 tablet PO Q8H PRN pain 04/05/23 09/12/25 History mg tablet (Advil Dual Action) Allergies Allergy/AdvReac Type Severity Reaction Status Date / Time No Known Allergies Allergy Unknown Verified 09/12/25 10:58 Vital Signs Vital Signs - 24 hr 09/12/25 06:45 09/12/25 06:51 09/12/25 06:51 Temperature 97.7 F Pulse Rate 129 H 120 H Respiratory Rate 26 H Blood Pressure 183/74 H Pulse Oximetry 92 92 Oxygen Delivery Room Air Room Air Oxygen Flow Rate 09/12/25 06:54 09/12/25 07:34 09/12/25 08:22 Temperature Pulse Rate 117 H Respiratory Rate 28 H Blood Pressure 143/80 H Pulse Oximetry 96 97 97 Oxygen Delivery Nasal Cannula Oxygen Flow Rate 2 09/12/25 08:32 09/12/25 10:04 09/12/25 10:36 Temperature Pulse Rate 110 H 121 H Respiratory Rate 18 Blood Pressure 112/51 L 127/63 Pulse Oximetry 98 97 Oxygen Delivery Oxygen Flow Rate 09/12/25 11:00 09/12/25 11:07 09/12/25 12:00 Temperature 98.1 F Pulse Rate 116 H 121 H Respiratory Rate 26 H Blood Pressure 135/71 Pulse Oximetry 98 98 Oxygen Delivery Nasal Cannula Oxygen Flow Rate 2 09/12/25 14:00 Temperature Pulse Rate 141 H Respiratory Rate Blood Pressure Pulse Oximetry Oxygen Delivery Oxygen Flow Rate Exam 2 Const: General: no acute distress Resp: Effort & Inspection: normal respiratory effort Auscultation: clear to auscultation bilaterally GI: Auscultation: normal bowel sounds Other: Positive Proctor sign - abdomen markedly obese Extrem: Other: Significant lymphedema in both LLEE Psych: Mental Status: mental status grossly normal Results Labs 09/13/25 03:58 09/13/25 03:58 Labs: Short CBC 09/12/25 Range/Units 06:56 WBC 20.4 H (4.5-10.0) K/mm3 Hgb 16.5 (14.0-18.0) g/dL Hct 50.7 (42.0-52.0) % Plt Count 185 (150-375) k/mm3 BMP 09/12/25 06:56 Sodium 135 L Potassium 3.9 Chloride 100 Carbon Dioxide 29 BUN 25 H D Creatinine 1.03 Glucose 131 H Calcium 8.9 Cardiac Enzymes 09/12/25 09/12/25 Range/Units 06:56 09:27 Troponin I < 0.012 < 0.012 (0.000-0.034) ng/mL Liver Function 09/12/25 Range/Units 06:56 Total Bilirubin 2.3 H (0.2-1.3) mg/dL AST 31 (17-59) U/L ALT 14 (6-50) U/L Alkaline Phosphatase 134 H (38-126) U/L Albumin 4.1 (3.5-5.1) g/dL Urine 09/12/25 Range/Units 08:27 Urine Color Dark yellow (Yellow) Urine Appearance Clear (Clear) Urine pH 5.5 (5.0-9.0) Ur Specific [place] 1.043 H (1.001-1.035) Urine Protein 2+ H (Negative) mg/dL Urine Glucose (UA) Negative (Negative) mg/dL
[2025-09-12 15:46] LABS: Troponin I < 0.012 ng/mL (0.000-0.034)
--- NOTE | 2025-09-12 23:16 | ECG_ITS ---
Test Date: 2025-09-12 23:24:53 Measurements Intervals [place] Rate: 129 P: 57 KS: 142 QRS: 132 QRSD: 101 T: 27 QT: 289 QTc: 424 Interpretive Statements SINUS TACHYCARDIA RIGHT AXIS DEVIATION INCOMPLETE RIGHT BUNDLE BRANCH BLOCK PATTERN CONSISTENT WITH PULMONARY DISEASE BASELINE ARTIFACT- I, I, II, AVR, AVL ,AVF ABNORMAL ECG Compared to ECG 09/12/2025 15:33:18 No significant changes Electronically Signed On 09-13-2025 06:13:31 HEALTH PROFESSOR by Mark Renner D.O.
[2025-09-13] VITALS (24 sets, daily range): BP systolic 122–262; BP diastolic 67–93; PULSE 96–158; RESP 10–28; TEMP 36.2–38.2; O2SAT 90–100; BMI 54.4
[2025-09-13] MEDS: SODIUM CHLORIDE 0.9% IV 1,000 ML 125 ML IV CONT ×3 (00:26→20:16)
[2025-09-13 04:27] LABS: Hematocrit 45.7 % (42.0-52.0); Hemoglobin 14.4 g/dL (14.0-18.0); Immature Granulocyte Percent A 0.8 % (0-0.5); Lymphocytes Absolute Auto 0.53 K/mm3 (0.9-3.2); Mean Corpuscular HGB Conc 31.5 g/dl (32-36); Mean Corpuscular Hemoglobin 29.0 pg (26-34); Mean Corpuscular Volume 92.1 fl (80-100); Nucleated Red Blood Cells Absolute Auto 0.000 K/mm3 (0.0-0.012); Nucleated Red Blood Cells Perc 0.0 % (0.0-0.2); Platelet Count Result 197 k/mm3 (150-375); Red Blood Count 4.96 M/mm3 (4.6-6.20); White Blood Count 19.5 K/mm3 (4.5-10.0)
[2025-09-13 04:46] LABS: Cholesterol 132 mg/dL (0-200); HDL Direct 24 mg/dL; Triglycerides 155 mg/dL (<150)
[2025-09-13 04:55] LABS: Alanine Aminotransferase 10 U/L (6-50); Albumin Level 3.4 g/dL (3.5-5.1); Alkaline Phosphatase 134 U/L (38-126); Anion Gap 6 mmol/L (4-12); Aspartate Amino Transferase 21 U/L (17-59); Bilirubin,Total 2.2 mg/dL (0.2-1.3); Blood Urea Nitrogen 19 mg/dL (9-20); Calcium 8.2 mg/dL (8.4-10.2); Carbon Dioxide 28 mmol/L (22-30); Chloride 103 mmol/L (98-107); Estimated CRCL calculation 100 ml/min; Estimated Glomerular Filt Rate > 60; Glucose 105 mg/dL (65-110); Magnesium 2.3 mg/dL (1.6-2.3); Potassium 3.8 mmol/L (3.4-5.0); Sodium 137 mmol/L (137-145); Total Protein 6.8 g/dL (6.3-8.2)
[2025-09-13] MEDS: MORPHINE SULFATE (*CRX) 4 MG/ML INJ IV PUSH ×2 (05:46→23:13)
[2025-09-13] MEDS: PIPERACILLIN/TAZOBACTAM SOD 3.375 GM in SODIUM CHLORIDE 0.9% IV 50 ML 100 ML IVPB ×3 (05:47→20:15)
[2025-09-13] MEDS: PANTOPRAZOLE SODIUM IV 40 MG VIAL IV PUSH ×2 (08:09→20:17)
[2025-09-13] MEDS: ENOXAPARIN 40 MG/0.4 ML SYRINGE SUB-Q (08:09)
--- NOTE | 2025-09-13 11:30 | P.PNGS_ITS ---
Progress Note: A&P Assessment and Plan (1) Acute calculous cholecystitis: Code(s): K80.00 - Calculus of gallbladder with acute cholecystitis without obstruction Status: Acute Assessment and Plan: * WBC count and total bilirubin without significant change. His abdominal pain and exam are unchanged. He remains tachycardic and tachypneic. * We would recommend proceeding with laparoscopic cholecystectomy by Dr. Brady. Description of the procedure, risks, benefits, alternatives, and expected recovery were discussed with the patient in detail. We discussed the risks of bile leak and bile duct injury, liver/bowel injury, bleeding, and infection. Also discussed the possibility of having to convert to an open procedure if necessary. He agrees with proceeding with surgery and we will proceed today. * Continue IV Zosyn (2) SIRS (systemic inflammatory response syndrome): Code(s): R65.10 - Systemic inflammatory response syndrome (SIRS) of non-infectious origin without acute organ dysfunction Status: Acute Assessment and Plan: * Likely secondary to acute cholecystitis. Blood cx pending. * Continue IV antibiotics * Proceed to the OR for source control (3) Abnormal CT of the abdomen: Code(s): R93.5 - Abnormal findings on diagnostic imaging of other abdominal regions, including retroperitoneum Status: Acute Assessment and Plan: * Upper GI this morning showed no extravasation of oral contrast, ruling out gastric ulcer perforation. * There is also mention of nodularity of the liver on CT with small volume of ascites. GI following and is concerned about liver cirrhosis. They are requesting a liver biopsy during surgery, which will be considered intraoperatively if there are no issues with the cholecystectomy. (4) Lymphedema: Code(s): I89.0 - Lymphedema, not elsewhere classified Status: Acute Plan I have discussed the patient's case, recommendations, and treatment plan with Dr. Brady. Subjective Subjective Date/Time Seen: 09/13/25 11:00 Patient reports: no new complaints, still having pain, flatus and afebrile Interval history: Patient seen this morning after upper GI series. He feels like he needs to have a BM and is going to try to get to the commode with nursing when I came into the room. he is still having upper abdominal pain reportedly across his entire upper abd. No nausea or vomiting. He is feeling short of breath with activity. He is on 2 liters O2 this am. Review of Systems Review of Systems: All systems reviewed & are unremarkable except as noted in HPI and below Exam Const: General: uncomfortable Nutritional Appearance: obese Orientation/ consciousness: patient oriented x3 GI: Inspection: non-distended and no visible herniation GI Palp: Yes Soft to palpation, Yes Tenderness to palpation present (GI) (diffuse tenderness across the upper abdomen and RLQ), Yes Guarding due to palpation present (GI) (guarding when palpating across the RUQ) and No Rebound tenderness present Auscultation: normal bowel sounds Objective Data Vital Signs Vital Signs: Vital Signs - 24 hr 09/12/25 12:00 09/12/25 14:00 09/12/25 15:57 Temperature 98.4 F Pulse Rate 121 H 141 H 116 H Respiratory Rate 28 H Blood Pressure 133/68 Pulse Oximetry 98 Oxygen Delivery Oxygen Flow Rate Fraction of Inspired Oxygen 09/12/25 16:00 09/12/25 16:00 09/12/25 17:31 Temperature Pulse Rate 116 H Respiratory Rate Blood Pressure Pulse Oximetry 98 97 Oxygen Delivery Nasal Cannula Nasal Cannula Oxygen Flow Rate 2 2 Fraction of Inspired Oxygen 09/12/25 18:00 09/12/25 20:00 09/12/25 20:00 Temperature 100.3 F H Pulse Rate 120 H 125 H Respiratory Rate 28 H Blood Pressure 142/68 H Pulse Oximetry 94 94 Oxygen Delivery Nasal Cannula Oxygen Flow Rate 2 Fraction of Inspired Oxygen 09/12/25 20:00 09/12/25 21:56 09/12/25 23:48 Temperature Pulse Rate 122 H 127 H Respiratory Rate Blood Pressure Pulse Oximetry 94 Oxygen Delivery Nasal Cannula Oxygen Flow Rate 2 Fraction of Inspired Oxygen 09/12/25 23:51 09/13/25 00:00 09/13/25 02:00 Temperature 100.6 F H Pulse Rate 130 H 126 H 116 H Respiratory Rate 28 H Blood Pressure 132/68 Pulse Oximetry 96 Oxygen Delivery Oxygen Flow Rate Fraction of Inspired Oxygen 09/13/25 04:00 09/13/25 04:00 09/13/25 04:00 Temperature 100.7 F H Pulse Rate 120 H 119 H Respiratory Rate 28 H Blood Pressure 137/73 Pulse Oximetry 96 93 Oxygen Delivery Nasal Cannula Oxygen Flow Rate 3 Fraction of Inspired Oxygen 09/13/25 06:00 09/13/25 08:00 09/13/25 08:00 Temperature 98.2 F Pulse Rate 116 H 125 H Respiratory Rate 22 H Blood Pressure 149/68 H Pulse Oximetry 96 96 Oxygen Delivery Nasal Cannula Oxygen Flow Rate 2 Fraction of Inspired Oxygen 24 09/13/25 08:00 09/13/25 08:00 09/13/25 08:58 Temperature Pulse Rate 158 H Respiratory Rate Blood Pressure Pulse Oximetry 93 90 Oxygen Delivery Nasal Cannula Room Air Oxygen Flow Rate 3 Fraction of Inspired Oxygen 21 Intake/Output Intake/Output: Intake & Output 09/10/25 09/11/25 09/12/25 09/13/25 23:59 23:59 23:59 23:59 Intake Total 2464.2 935.4 Output Total 1200 Balance 2464.2 -264.6 Meds/Results Medications: Active Medications Generic Name Dose Route Start Last Admin Trade Name Freq PRN Reason Stop Dose Admin Enoxaparin Sodium 40 mg 09/13/25 09:00 09/13/25 08:09 Enoxaparin 40 Mg/0.4 Ml Syringe SUB-Q 40 mg DAILY MACK Administration Sodium Chloride 1,000 mls @ 125 mls/hr 09/12/25 09:15 09/13/25 00:26 Normal Saline Iv IV CONT 125 mls/hr .Q8H MACK Administration Piperacillin Sod/Tazobactam 50 mls @ 100 mls/hr 09/12/25 13:00 09/13/25 05:47 Sod 3.375 gm/ Sodium Chloride IVPB 100 mls/hr Q6HR MACK Administration Morphine Sulfate 4 mg 09/12/25 13:07 09/13/25 05:46 Morphine Sulfate (*Crx) 4 Mg/Ml Inj IV PUSH 4 mg Q2H PRN Administration Pain Rated 7-10 Morphine Sulfate 2 mg 09/12/25 13:06 Morphine Sulfate (*Crx) 4 Mg/Ml Inj IV PUSH Q2H PRN Pain Rated 4-6 Ondansetron HCl 4 mg 09/12/25 09:08 Ondansetron Inj 4 Mg/2 Ml Vial IV PUSH Q4H PRN Nausea Pantoprazole Sodium 40 mg 09/12/25 09:00 09/13/25 08:09 Pantoprazole Sodium Iv 40 Mg Vial IV PUSH 40 mg BID MACK Administration Radiology Results: ITS Impressions Chest/Abdomen/Pelvis CT 09/12/25 08:10 IMPRESSION: CHEST- 1. No acute abnormality, other than bibasilar atelectasis. ABDOMEN/PELVIS- 1. Gastric ulcer and/or gastritis. Possibility of microperforation given organized perihepatic ascites and/or fluid collection or abscess. 2. Gallstone with nonspecific gallbladder wall thickening. If concern for cholecystitis, consider ultrasound and/or HIDA scan. Chest X-Ray 09/12/25 08:33 IMPRESSION: 1. No acute cardiopulmonary findings. Abdomen Ultrasound 09/12/25 09:33 IMPRESSION: 1. Consistent with acute cholecystitis. Upper GI Series 09/13/25 09:19 IMPRESSION: 1. Exam limited as above. No large ulceration, perforation or extravasation of contrast 2. Tertiary contractions in the esophagus suggest mild esophagitis; small hiatal hernia also noted. 3. Recommend follow-up KUB in 4 to 6 hours to evaluate enteric transit of contrast. Labs Labs: Laboratory Results - last 24 hr 09/12/25 09/13/25 15:12 03:58 WBC 19.5 H RBC 4.96 Hgb 14.4 Hct 45.7 MCV 92.1 MCH 29.0 MCHC 31.5 L RDW 14.4 Plt Count 197 MPV 9.5 Immature Gran % (Auto) 0.8 H Neut % (Auto) 85.6 H Lymph % (Auto) 2.7 L [place] % (Auto) 10.1 H Eos % (Auto) 0.1 Baso % (Auto) 0.7 Lymph # (Auto) 0.53 L [place] # (Auto) 2.0 H Eos # (Auto) 0.0 Baso # (Auto) 0.1 Abs Immat Gran (auto) 0.15 H Absolute Neuts (auto) 16.7 H Absolute Nucleated RBC 0.000 Nucleated RBC % 0.0 Sodium 137 Potassium 3.8 Chloride 103 Carbon Dioxide 28 Anion Gap 6 BUN 19 Creatinine 1.03 Estim Creat Clear Calc 100 Estimated GFR > 60 Glucose 105 Calcium 8.2 L Magnesium 2.3 Total Bilirubin 2.2 H AST 21 ALT 10 Alkaline Phosphatase 134 H Troponin I < 0.012 Total Protein 6.8 Albumin 3.4 L Triglycerides 155 H Cholesterol 132 LDL Cholesterol Direct 47 HDL Direct 24
--- NOTE | 2025-09-13 12:51 | P.PNIM_ITS ---
Assessment and Plan Assessment and Plan (1) Sepsis: Code(s): A41.9 - Sepsis, unspecified organism Status: Resolved Plan Sepsis From acute cholecystitis and gastric ulcer with possible perforation Tachycardia, tachypnea resolving. EBC 20.[address] showed gastric ulcer with possible perforation Liver Us showed acute cholecystitis Blood culture Continue Zosyn and PPI IV, IVF Gen surgery and GI consulted Gastric ulcer with possible perforation CT AP reviewed Gi reviewed and noted that CT finding is incidental and recommended outpatient follow after manageemnt for Acute cholecystitis GI eval noted Acute cholecystitis US liver reviewed Continue Zosyn and IVF For Lap ashok today Gen surgery consulted Lymphedema with venous ulcer Continue compression therapy Wound care following DVT prophylaxis on Sq Lovenox Full code SDM: Zulma Leigh Subjective Date/time seen: 09/13/25 12:51 Interval history: Comfortable at bedside, awaiting Lap Ashok today Review of Systems Review of Systems: All other systems were reviewed and negative except as noted in the HPI above Exam Narrative: General: alert and comfortable Eyes: EOMI, PERRLA ENNT External ears normal, Neck is supple, no masses, Respiratory systems: Clear to auscultation Cardiovascular S1, S2, normal rhythm, no murmur, rub, or gallop; no thrill or palpable murmurs on palpation. Gastrointestinal: soft, diffuse abd tenderness , and non-distended abdomen with no masses; BS present Skin: non pitting leg edema, with venous ulcer Musculoskeletal: no abnormality and no tenderness, normal ROM Neurologic: Alert and oriented x3, non focal Mental Status Exam: normal affect Objective Data Vital Signs Vital Signs: Vital Signs - 24 hr 09/12/25 14:00 09/12/25 15:57 09/12/25 16:00 Temperature 98.4 F Pulse Rate 141 H 116 H Respiratory Rate 28 H Blood Pressure 133/68 Pulse Oximetry 98 98 Oxygen Delivery Nasal Cannula Oxygen Flow Rate 2 Fraction of Inspired Oxygen 09/12/25 16:00 09/12/25 17:31 09/12/25 18:00 Temperature Pulse Rate 116 H 120 H Respiratory Rate Blood Pressure Pulse Oximetry 97 Oxygen Delivery Nasal Cannula Oxygen Flow Rate 2 Fraction of Inspired Oxygen 09/12/25 20:00 09/12/25 20:00 09/12/25 20:00 Temperature 100.3 F H Pulse Rate 125 H 122 H Respiratory Rate 28 H Blood Pressure 142/68 H Pulse Oximetry 94 94 Oxygen Delivery Nasal Cannula Oxygen Flow Rate 2 Fraction of Inspired Oxygen 09/12/25 21:56 09/12/25 23:48 09/12/25 23:51 Temperature 100.6 F H Pulse Rate 127 H 130 H Respiratory Rate 28 H Blood Pressure 132/68 Pulse Oximetry 94 96 Oxygen Delivery Nasal Cannula Oxygen Flow Rate 2 Fraction of Inspired Oxygen 09/13/25 00:00 09/13/25 02:00 09/13/25 04:00 Temperature 100.7 F H Pulse Rate 126 H 116 H 120 H Respiratory Rate 28 H Blood Pressure 137/73 Pulse Oximetry 96 Oxygen Delivery Oxygen Flow Rate Fraction of Inspired Oxygen 09/13/25 04:00 09/13/25 04:00 09/13/25 06:00 Temperature Pulse Rate 119 H 116 H Respiratory Rate Blood Pressure Pulse Oximetry 93 Oxygen Delivery Nasal Cannula Oxygen Flow Rate 3 Fraction of Inspired Oxygen 09/13/25 08:00 09/13/25 08:00 09/13/25 08:00 Temperature 98.2 F Pulse Rate 125 H Respiratory Rate 22 H Blood Pressure 149/68 H Pulse Oximetry 96 96 93 Oxygen Delivery Nasal Cannula Nasal Cannula Oxygen Flow Rate 2 3 Fraction of Inspired Oxygen 24 09/13/25 08:00 09/13/25 08:58 09/13/25 10:00 Temperature Pulse Rate 158 H 96 Respiratory Rate Blood Pressure Pulse Oximetry 90 Oxygen Delivery Room Air Oxygen Flow Rate Fraction of Inspired Oxygen 21 09/13/25 12:00 Temperature 98 F Pulse Rate 133 H Respiratory Rate 20 Blood Pressure 143/93 H Pulse Oximetry 93 Oxygen Delivery Oxygen Flow Rate Fraction of Inspired Oxygen Intake/Output Intake/Output: Intake & Output 09/10/25 09/11/25 09/12/25 09/13/25 23:59 23:59 23:59 23:59 Intake Total 2464.2 1985.4 Output Total 1200 Balance 2464.2 785.4 Meds/Results Medications: Active Medications Generic Name Dose Route Start Last Admin Trade Name Freq PRN Reason Stop Dose Admin Enoxaparin Sodium 40 mg 09/13/25 09:00 09/13/25 08:09 Enoxaparin 40 Mg/0.4 Ml Syringe SUB-Q 40 mg DAILY MACK Administration Sodium Chloride 1,000 mls @ 125 mls/hr 09/12/25 09:15 09/13/25 11:49 Normal Saline Iv IV CONT 125 mls/hr .Q8H MACK Administration Piperacillin Sod/Tazobactam 50 mls @ 100 mls/hr 09/12/25 13:00 09/13/25 11:48 Sod 3.375 gm/ Sodium Chloride IVPB 100 mls/hr Q6HR MACK Administration Morphine Sulfate 4 mg 09/12/25 13:07 09/13/25 05:46 Morphine Sulfate (*Crx) 4 Mg/Ml Inj IV PUSH 4 mg Q2H PRN Administration Pain Rated 7-10 Morphine Sulfate 2 mg 09/12/25 13:06 Morphine Sulfate (*Crx) 4 Mg/Ml Inj IV PUSH Q2H PRN Pain Rated 4-6 Ondansetron HCl 4 mg 09/12/25 09:08 Ondansetron Inj 4 Mg/2 Ml Vial IV PUSH Q4H PRN Nausea Pantoprazole Sodium 40 mg 09/12/25 09:00 09/13/25 08:09 Pantoprazole Sodium Iv 40 Mg Vial IV PUSH 40 mg BID MACK Administration Radiology Results: ITS Impressions Chest/Abdomen/Pelvis CT 09/12/25 08:10 IMPRESSION: CHEST- 1. No acute abnormality, other than bibasilar atelectasis. ABDOMEN/PELVIS- 1. Gastric ulcer and/or gastritis. Possibility of microperforation given organized perihepatic ascites and/or fluid collection or abscess. 2. Gallstone with nonspecific gallbladder wall thickening. If concern for cholecystitis, consider ultrasound and/or HIDA scan. Chest X-Ray 09/12/25 08:33 IMPRESSION: 1. No acute cardiopulmonary findings. Abdomen Ultrasound 09/12/25 09:33 IMPRESSION: 1. Consistent with acute cholecystitis. Upper GI Series 09/13/25 09:19 IMPRESSION: 1. Exam limited as above. No large ulceration, perforation or extravasation of contrast 2. Tertiary contractions in the esophagus suggest mild esophagitis; small hiatal hernia also noted. 3. Recommend follow-up KUB in 4 to 6 hours to evaluate enteric transit of contrast. Labs Labs: Laboratory Results - last 24 hr 09/12/25 09/13/25 15:12 03:58 WBC 19.5 H RBC 4.96 Hgb 14.4 Hct 45.7 MCV 92.1 MCH 29.0 MCHC 31.5 L RDW 14.4 Plt Count 197 MPV 9.5 Immature Gran % (Auto) 0.8 H Neut % (Auto) 85.6 H Lymph % (Auto) 2.7 L [place] % (Auto) 10.1 H Eos % (Auto) 0.1 Baso % (Auto) 0.7 Lymph # (Auto) 0.53 L [place] # (Auto) 2.0 H Eos # (Auto) 0.0 Baso # (Auto) 0.1 Abs Immat Gran (auto) 0.15 H Absolute Neuts (auto) 16.7 H Absolute Nucleated RBC 0.000 Nucleated RBC % 0.0 Sodium 137 Potassium 3.8 Chloride 103 Carbon Dioxide 28 Anion Gap 6 BUN 19 Creatinine 1.03 Estim Creat Clear Calc 100 Estimated GFR > 60 Glucose 105 Calcium 8.2 L Magnesium 2.3 Total Bilirubin 2.2 H AST 21 ALT 10 Alkaline Phosphatase 134 H Troponin I < 0.012 Total Protein 6.8 Albumin 3.4 L Triglycerides 155 H Cholesterol 132 LDL Cholesterol Direct 47 HDL Direct 24
--- NOTE | 2025-09-13 13:09 | WPDHPUPDATE1 ---
History and Physical Update Update Date/Time: 09/13/25 13:09 History and Physical has been reviewed, including an updated exam of the patient. There are NO changes in the patient's condition. Risks, benefits, and alternatives have been discussed and questions answered. Patient agrees to proceed with procedure.
--- NOTE | 2025-09-13 13:27 | PC.NURSE ---
patient taken to OR, no signs of distress noted
--- NOTE | 2025-09-13 14:29 | P.PNAN_ITS ---
Anes - Initial Pre Proc Eval Procedure: Operation Date: 09/13/25 16:00 Proposed Procedures p Laparoscopic Cholecystectomy, Possible Open - Clinton Brady DO Date/Time: 09/13/25 14:29 Surgeon: Ti Jay MD Pre Op Diagnosis: SIRS, Abdominal pain Patient Data Age: 60 Gender: M Height: 1.7 m Weight: 157.7 kg Last Vital Signs Temp 97.2 F L 09/13/25 13:15 Pulse 118 H 09/13/25 13:15 Resp 16 09/13/25 13:15 BP 150/83 H 09/13/25 13:15 Pulse Ox 97 09/13/25 13:15 O2 Del Method Nasal Cannula 09/13/25 13:15 O2 Flow Rate 3 09/13/25 13:15 FiO2 21 09/13/25 08:58 Allergies Allergy/AdvReac Type Severity Reaction Status Date / Time No Known Allergies Allergy Unknown Verified 09/13/25 13:27 Home Medications ?Medication ?Instructions ?Recorded ?Confirmed ?Type ibuprofen 125 mg-acetaminophen 250 1 tablet PO Q8H PRN pain 04/05/23 09/12/25 History mg tablet (Advil Dual Action) Laboratory Tests 09/12/25 09/13/25 15:12 03:58 WBC 19.5 H K/mm3 (4.5-10.0) RBC 4.96 M/mm3 (4.6-6.20) Hgb 14.4 g/dL (14.0-18.0) Hct 45.7 % (42.0-52.0) MCV 92.1 fl (80-100) MCH 29.0 pg (26-34) MCHC 31.5 L g/dl (32-36) RDW 14.4 % (11.5-14.5) Plt Count 197 k/mm3 (150-375) MPV 9.5 fl (7.4-10.4) Immature Gran % (Auto) 0.8 H % (0-0.5) Neut % (Auto) 85.6 H % (45.5-73.1) Lymph % (Auto) 2.7 L % (18.3-44.2) Elliott % (Auto) 10.1 H % (2.6-8.5) Eos % (Auto) 0.1 % (0-4.4) Baso % (Auto) 0.7 % (0.2-1.2) Lymph # (Auto) 0.53 L K/mm3 (0.9-3.2) [place] # (Auto) 2.0 H K/mm3 (0.1-0.6) Eos # (Auto) 0.0 K/mm3 (0-0.3) Baso # (Auto) 0.1 K/mm3 (0.0-0.1) Abs Immat Gran (auto) 0.15 H K/mm3 (0.00-0.031) Absolute Neuts (auto) 16.7 H K/mm3 (1.3-6.7) Absolute Nucleated RBC 0.000 K/mm3 (0.0-0.012) Nucleated RBC % 0.0 % (0.0-0.2) Sodium 137 mmol/L (137-145) Potassium 3.8 mmol/L (3.4-5.0) Chloride 103 mmol/L (98-107) Carbon Dioxide 28 mmol/L (22-30) Anion Gap 6 mmol/L (4-12) BUN 19 mg/dL (9-20) Creatinine 1.03 mg/dL (0.7-1.3) Estim Creat Clear Calc 100 ml/min Estimated GFR > 60 (59 - ) Glucose 105 mg/dL (65-110) Calcium 8.2 L mg/dL (8.4-10.2) Magnesium 2.3 mg/dL (1.6-2.3) Total Bilirubin 2.2 H mg/dL (0.2-1.3) AST 21 U/L (17-59) ALT 10 U/L (6-50) Alkaline Phosphatase 134 H U/L (38-126) Troponin I < 0.012 ng/mL (0.000-0.034) Total Protein 6.8 g/dL (6.3-8.2) Albumin 3.4 L g/dL (3.5-5.1) Triglycerides 155 H mg/dL (<150) Cholesterol 132 mg/dL (0-200) LDL Cholesterol Direct 47 mg/dL HDL Direct 24 mg/dL Patient hx anesthesia problems: none Family hx anesthesia problems: none Results Review: All pre-operative results and documents have been reviewed as part of the pre- operative evaluation. [facility] Past Medical History Medical History Contact dermatitis Elevated blood pressure reading Bilateral primary osteoarthritis of knee BMI 50.0-59.9, adult Other hyperlipidemia Lymphedema, not elsewhere classified Low testosterone in male Localized edema Hypothyroidism, unspecified Elevated hemoglobin Dietary counseling and surveillance (04/22/17) Decreased libido Bilateral leg ulcer Elevated glucose Screening for prostate cancer Screening for lipid disorders BMI 60.0-69.9, adult Lymphedema No significant past medical history Surgical History Surgical History Hx of elbow surgery Hx of hand surgery History of tonsillectomy Family History Family History Father Family history of coronary artery disease Hypertension Congestive heart failure Mother Family history of coronary artery disease Hypertension Cerebrovascular accident Heart disease Sibling Heart disease Other Family history of type 1 diabetes mellitus Social History Social History Smoking status: Never smoker Second hand tobacco smoke exposure: Yes Alcohol intake: former Drinks per week: 0 Substance use: never Substance use type: does not use Lack of Transportation: No Lack of Food: Never True Current Housing: I Have Housing Concerned About Future Housing: No Difficulty Paying Gas/Electric Bills: No Difficulty Paying for Meds: No Currently Unemployed: No Education: High School Diploma/GED Difficulty w/ Childcare or Family Care: No Living arrangements: with family Occupation/Education: unemployed Gender identity (if verbalized by the patient): Male Spiritual care concerns: No Anes - Eval Final PreProcedure Day of Procedure 09/13/25 14:29 Patient weight: super morbidly obese Heart: regular rate and rhythm Lungs: clear to auscultation Airway: Mallampati scale class III Neurological: alert and oriented Last oral intake: >/= 8 hours ASA classification: IV Emergent: no Anesthetic plan: proceed Anesthesia type and monitoring: general ETT (glide scope intubation) and standard monitoring Results Review: All pre-operative results and documents have been reviewed as part of the pre- operative evaluation. Informed Consent: The patient's anesthetic plan and its attendant risks and benefits were discussed with the patient/family/POA. Questions were solicited and answers provided to the satisfaction of the patient/family/POA.
[2025-09-13] MEDS: BUPIVACAINE/EPINEPHRINE 0.5% 50 ML VIAL 30 ML INFILTRATE (15:12)
--- NOTE | 2025-09-13 15:47 | S_PTH ---
PATIENT: Madhu Leigh LOC: [id number] U#:[id number] AGE/SX: 60/M ROOM: 307 RE09/12/[address]: Chas Ramirez MD : [id number] BED: 02 DIS: 09/20/2025 SPEC #: [id number] RECD: 09/14/25 07:49 STATUS: MICHELLE GUTIERREZ #: [id number] MARYAN: 09/13/25 15:[address]: Clinton Brady DEPT: [facility] Surgical RECD BY: Fletcher Garrison ENTERED: 09/14/25 07:49 SP TYPE: Surgical OTHR DR: Ti Jay MD Yinka Esther Duval MD Tissues: A - Gallbladder B - Liver Biopsy Procedures: Pas with Diastase Unstained Slides Hematoxylin and Eosin Stain Reticulum Stain Trichrome Stain Gross and Microscopic Level 3 Gross and Microscopic Level 5 Iron Stain
--- NOTE | 2025-09-13 16:21 | P.OP_ITS ---
Procedure Note - Detailed Date of Procedure 09/13/25 Pre-op Diagnosis Acute calculous cholecystitis Post-op Diagnosis Other (Perforated acute calculous cholecystitis, intra-abdominal abscess) Procedure Performed 1. Laparoscopic subtotal cholecystectomy 2. Laparoscopic drainage of intra-abdominal abscess 3. Laparoscopic wedge liver biopsy Surgeon Clinton Brady DO Sheet Metal Welder Milagros Johnson PA-C Anesthesia General and Local (0.5% bupivacaine with epinephrine) Indications This is a 60-year-old man who presented to the emergency department yesterday with upper abdominal pain. He was noted to have signs of sepsis in the ED with tachycardia and an elevated white blood count. CT showed evidence of fluid over the left lobe of the liver and in the region of the marleny hepaticus. He also had gallbladder wall thickening and a large gallstone in the neck of the gallbladder. He was admitted for further treatment and was placed on broad- spectrum IV antibiotics. An upper GI was obtained due to the original reading on the CT suggesting possible micro perforation of a gastric ulcer. There was no sign of contrast extravasation to suggest a perforated ulcer. Discussions were made with the patient about treatment options and decision was made to proceed with laparoscopic cholecystectomy, possible open and possible laparoscopic liver biopsy. Findings Upon entering the abdomen laparoscopically, there appeared to be some omental adhesions up to the inferior edge of the liver. These adhesions were taken down and a large amount of purulence fluid was identified over the left lobe of the liver and in the right hepatic recess. The stomach was carefully inspected and there did not appear to be any evidence of perforation along the anterior surface of the stomach or duodenum. There were dense adhesions of the duodenum up to the gallbladder along with some omental adhesions. Upon taking some of these adhesions down I did identify an area of the gallbladder that appeared perforated and there appeared to be a large gallstone eroding through the gallbladder at this location. This also appeared to be where more purulence drainage was noted coming from. The abscess was completely drained and the gallbladder neck was carefully dissected. Due to the area of perforation with the gallstone eroding through, this appeared to be essentially where the neck of the gallbladder was connecting to the cystic duct. There appeared to be 1 small tubular structure that I was able to place 2 clips on and then a subtotal cholecystectomy was performed removing the entire intra-abdominal portion of the gallbladder but leaving the back wall of the gallbladder attached to the liver bed. Gallbladder was removed and sent to the lab for pathology. The back wall of the gallbladder that was left on the liver bed was cauterized using spatula electrocautery. I then performed a wedge liver biopsy by excising the inferior medial portion of the left lobe of the liver using electrocautery and a laparoscopic scoop grasper. I then irrigated the abdomen with about 1 L of sterile saline and then placed a 19 round Antione drain along the gallbladder fossa and underside of the liver. Description of Procedure Procedure as well the left of the liver just as risks, benefits, and alternatives were discussed with the patient. Written consent was obtained and placed in chart prior to procedure. Patient was brought back to surgical suite. He was placed supine on operating table. Time-out was done to confirm patient and procedure. He was then intubated by the anesthesia department. His abdomen was prepped and draped in sterile fashion using chlorhexidine prep. 0.5% bupivacaine with epinephrine was infiltrated locally around each of the port locations. A 5 mm incision was made in the supraumbilical region and a 5 mm Optiview trocar was advanced through the abdominal layers under direct visualization. Once inside the abdominal cavity, carbon dioxide insufflation was used to create a pneumoperitoneum. The camera was inserted and no immediate abnormalities were identified. The patient was placed in reverse Trendelenburg position and rotated slightly to the left. There were some omental adhesions that were identified over the inferior surface of the liver. A 5 mm incision was made in the left lateral abdomen and a 5 mm trocar was inserted under direct visualization. Another 5 mm incision was made in the right lateral abdomen and a 5 mm trocar was inserted under direct visualization. This allowed me to then carefully take down some of the omental adhesions using blunt dissection with the suction project management manager. Upon taking some of these adhesions down I was able to identify a large amount of purulence fluid over the anterior surface of the liver. This appeared predominantly over the left lobe of the liver just to the left of the falciform ligament, but then there was also a significant amount of purulence fluid along the right hepatic recess. The abscess was completely drained and then the liver was further inspected. I lifted the left lobe of the liver to carefully inspect the anterior surface of the stomach. There did not appear to be any evidence of perforation on the anterior surface of the stomach. Once these adhesions were taken down, I was now able to see the remainder of the upper abdominal wall to place the remaining ports. An 11 mm incision was made in the subxiphoid region and an 11 mm trocar was inserted under direct visualization. Another 5 mm incision was then made in the right upper quadrant and a 5 mm trocar was inserted under direct visualization. I carefully inspected the inferior edge of the right lobe of the liver and could not identify the gallbladder at 1st. A carefully bluntly dissected some of the omen kirby adhesions with the suction project management manager and eventually was able to identify a small portion of the fundus of the gallbladder. The duodenum appeared to be coming up close to this area as well, but with careful blunt dissection I was able to identify a plane between the gallbladder and duodenum and omentum. The gallbladder was grasped at the fundus and careful blunt dissection was then carried out further to take down some of the adhesions around the gallbladder. I identified an area of perforation along the lateral side of the body of the gallbladder. There appeared to be a large gallstone in this location that was eroding through the gallbladder and visible. Further blunt dissection was carried out just beyond the stone and the stone appeared to be right at the neck of the gallbladder where the cystic duct was suspected to be. There was 1 small tubular structure right at this location that was likely a vessel branching to the wall of the gallbladder along the medial side. I did not clearly identify the cystic duct but did not want to risk injury to the common bile duct due to how much induration and adhesions were around this area. The gallbladder appeared to peel away where the perforation had happened and I chose to perform a subtotal cholecystectomy by removing the entire anterior portion of the gallbladder and leaving the back wall of the gallbladder attached to the liver bed. This was performed using hook electrocautery and the gallbladder wall was removed along with the stone and this was then placed in an Endo-Catch bag and removed through the subxiphoid port. The posterior wall of the gallbladder was then cauterized and the liver bed was inspected. Hemostasis appeared adequate and no other significant abnormalities were noted. I then irrigated the abdomen with 1 L of sterile saline. No other purulence drainage was identified. A wedge liver biopsy was then performed along the inferior edge of the left lobe of the liver. A laparoscopic scoop grasper instrument was placed on the edge of the liver and then spatula electrocautery was used to carefully dissect a wedge biopsy from this edge. The biopsy was completed and sent to the lab for path ology. Hemostasis was then achieved with spatula electrocautery. No other abnormalities were noted. A 19 round Antione drain was then placed through the 5 mm port in the right lateral abdomen and the drain was directed to the gallbladder fossa and inferior edge of the liver. The drain was secured in place using a 3-0 nylon drain stitch. The patient was then flattened out in bed. The 11 mm port was removed and the fascia was reapproximated using a Markel-True cone with an 0 Vicryl suture x2. The remaining ports were then removed under direct visualization, the camera was removed, and the pneumoperitoneum was released. The skin of the incisions was approximated using 4-0 Monocryl running subcuticular sutures. Exofin glue was then applied on top. A drain sponge was placed around the drain followed by tape. The patient was then awakened from anesthesia, extubated, and transferred to recovery. Estimated Blood Loss 50 Urine Output 1,200 Drains Yes (19 round Antione drain) Pathology Yes (gallbladder, liver biopsy) Complications No immediate complications Condition Critical Disposition Other ([facility]) [facility] Billing Surgery - Charge Forward: Surgery Billing
[2025-09-13] MEDS: LACTATED RINGERS 1,000 ML 30 ML IV CONT (16:32)
[2025-09-13] MEDS: METOPROLOL TARTRATE INJ 5 MG/5 ML VIAL IV PUSH ×2 (17:24→17:49)
[2025-09-13] MEDS: MORPHINE SULFATE (*CRX) 4 MG/ML INJ 2 MG IV PUSH (20:18)
[2025-09-14] VITALS (14 sets, daily range): BP systolic 120–142; BP diastolic 56–72; PULSE 79–111; RESP 18–22; TEMP 36.4–38.2; O2SAT 92–99
[2025-09-14] MEDS: PIPERACILLIN/TAZOBACTAM SOD 3.375 GM in SODIUM CHLORIDE 0.9% IV 50 ML 100 ML IVPB ×4 (01:27→20:41)
[2025-09-14] MEDS: MORPHINE SULFATE (*CRX) 4 MG/ML INJ IV PUSH (06:33)
[2025-09-14 06:43] LABS: Hematocrit 47.8 % (42.0-52.0); Hemoglobin 14.7 g/dL (14.0-18.0); Immature Granulocyte Percent A 3.2 % (0-0.5); Lymphocytes Absolute Auto 0.64 K/mm3 (0.9-3.2); Mean Corpuscular HGB Conc 30.8 g/dl (32-36); Mean Corpuscular Hemoglobin 29.3 pg (26-34); Mean Corpuscular Volume 95.2 fl (80-100); Nucleated Red Blood Cells Absolute Auto 0.000 K/mm3 (0.0-0.012); Nucleated Red Blood Cells Perc 0.0 % (0.0-0.2); Platelet Count Result 213 k/mm3 (150-375); Red Blood Count 5.02 M/mm3 (4.6-6.20); White Blood Count 15.5 K/mm3 (4.5-10.0)
[2025-09-14 07:08] LABS: Alanine Aminotransferase 24 U/L (6-50); Albumin Level 3.3 g/dL (3.5-5.1); Alkaline Phosphatase 158 U/L (38-126); Anion Gap 2 mmol/L (4-12); Aspartate Amino Transferase 69 U/L (17-59); Bilirubin,Total 1.4 mg/dL (0.2-1.3); Blood Urea Nitrogen 24 mg/dL (9-20); Calcium 8.3 mg/dL (8.4-10.2); Carbon Dioxide 32 mmol/L (22-30); Chloride 104 mmol/L (98-107); Estimated CRCL calculation 88 ml/min; Estimated Glomerular Filt Rate > 60; Glucose 127 mg/dL (65-110); Magnesium 2.7 mg/dL (1.6-2.3); Potassium 4.2 mmol/L (3.4-5.0); Sodium 138 mmol/L (137-145); Total Protein 6.9 g/dL (6.3-8.2)
--- NOTE | 2025-09-14 08:18 | PM.IMPN2 ---
Assessment and Plan Assessment and Plan (1) Sepsis: Code(s): A41.9 - Sepsis, unspecified organism Status: Resolved Plan Sepsis From acute cholecystitis and gastric ulcer with possible perforation Tachycardia, tachypnea resolving. EBC 20.[address] showed gastric ulcer with possible perforation Liver Us showed acute cholecystitis Underwent 09/13 Laparoscopic subtotal cholecystectomy,Laparoscopic drainage of intra-abdominal abscess, and Laparoscopic wedge liver biopsy Blood culture pending Continue Zosyn and PPI IV, IVF Gen surgery and GI consulted Gastric ulcer with possible perforation CT AP reviewed GI reviewed and noted that CT finding is incidental and recommended outpatient follow after management for Acute cholecystitis GI eval noted Acute cholecystitis US liver reviewed Continue Zosyn and IVF S/P Laparoscopic subtotal cholecystectomy,Laparoscopic drainage of intra-abdominal abscess, and Laparoscopic wedge liver biopsy Gen surgery consulted Lymphedema with venous ulcer Continue compression therapy Wound care following DVT prophylaxis on Sq Lovenox Full code SDM: Zulma Leigh Subjective Date/time seen: 09/14/25 08:18 Interval history: Patient underwent lap choly and liver biopsy. Currently doing better. Review of Systems Review of Systems: All other systems were reviewed and negative except as noted in the HPI above Exam Narrative: General: alert and comfortable Eyes: EOMI, PERRLA ENNT External ears normal, Neck is supple, no masses, Respiratory systems: Clear to auscultation Cardiovascular S1, S2, normal rhythm, no murmur, rub, or gallop; no thrill or palpable murmurs on palpation. Gastrointestinal: soft, diffuse abd tenderness , and non-distended abdomen with no masses; BS present Skin: non pitting leg edema, with venous ulcer Musculoskeletal: no abnormality and no tenderness, normal ROM Neurologic: Alert and oriented x3, non focal Mental Status Exam: normal affect Objective Data Vital Signs Vital Signs: Vital Signs - 24 hr 09/13/25 08:58 09/13/25 10:00 09/13/25 12:00 Temperature 98 F Pulse Rate 96 133 H Respiratory Rate 20 Blood Pressure 143/93 H Pulse Oximetry 90 93 Oxygen Delivery Room Air Oxygen Flow Rate Fraction of Inspired Oxygen 21 09/13/25 12:00 09/13/25 12:00 09/13/25 13:15 Temperature 97.2 F L Pulse Rate 120 H 118 H Respiratory Rate 16 Blood Pressure 150/83 H Pulse Oximetry 95 97 Oxygen Delivery Nasal Cannula Nasal Cannula Oxygen Flow Rate 3 3 Fraction of Inspired Oxygen 09/13/25 16:32 09/13/25 16:45 09/13/25 17:00 Temperature 97.8 F Pulse Rate 110 H 114 H 119 H Respiratory Rate 10 L 15 20 Blood Pressure 155/75 H 163/81 H 262/91 H Pulse Oximetry 97 100 99 Oxygen Delivery Simple Face Mask Simple Face Mask Oxygen Flow Rate 8 8 8 Fraction of Inspired Oxygen 09/13/25 17:15 09/13/25 17:24 09/13/25 17:30 Temperature Pulse Rate 122 H 124 H 112 H Respiratory Rate 16 17 Blood Pressure 156/92 H 156/93 H Pulse Oximetry 95 92 Oxygen Delivery Nasal Cannula Nasal Cannula Oxygen Flow Rate 3 3 Fraction of Inspired Oxygen 09/13/25 17:45 09/13/25 17:49 09/13/25 18:00 Temperature Pulse Rate 112 H 112 H 106 H Respiratory Rate 20 21 H Blood Pressure 145/81 H 140/87 Pulse Oximetry 95 95 Oxygen Delivery Nasal Cannula Nasal Cannula Oxygen Flow Rate 3 3 Fraction of Inspired Oxygen 09/13/25 18:15 09/13/25 18:30 09/13/25 18:45 Temperature 99.8 F H Pulse Rate 108 H 107 H 108 H Respiratory Rate 21 H 20 18 Blood Pressure 141/84 H 122/83 145/93 H Pulse Oximetry 93 93 96 Oxygen Delivery Nasal Cannula Nasal Cannula Oxygen Flow Rate 3 3 Fraction of Inspired Oxygen 09/13/25 20:00 09/13/25 20:00 09/13/25 20:00 Temperature 100.5 F H 100.5 F H Pulse Rate 109 H 109 H Respiratory Rate 18 18 Blood Pressure 133/67 133/67 Pulse Oximetry 97 97 94 Oxygen Delivery High Flow Nasal Cannula Oxygen Flow Rate 6 Fraction of Inspired Oxygen 09/13/25 20:00 09/13/25 21:40 09/13/25 21:57 Temperature Pulse Rate 106 H 105 H Respiratory Rate Blood Pressure Pulse Oximetry 95 Oxygen Delivery Nasal Cannula Oxygen Flow Rate 4 Fraction of Inspired Oxygen 36 09/14/25 00:00 09/14/25 00:00 09/14/25 00:00 Temperature 100.8 F H 100.8 F H Pulse Rate 108 H 108 H Respiratory Rate 18 18 Blood Pressure 130/61 130/61 Pulse Oximetry 98 98 94 Oxygen Delivery Nasal Cannula Oxygen Flow Rate 4 Fraction of Inspired Oxygen 09/14/25 00:00 09/14/25 02:00 09/14/25 03:29 Temperature Pulse Rate 110 H 105 H Respiratory Rate Blood Pressure Pulse Oximetry 95 Oxygen Delivery Nasal Cannula Oxygen Flow Rate 4 Fraction of Inspired Oxygen 09/14/25 04:00 09/14/25 04:00 09/14/25 05:48 Temperature 98.8 F Pulse Rate 104 H 111 H 107 H Respiratory Rate 18 Blood Pressure 142/69 H Pulse Oximetry 94 Oxygen Delivery Oxygen Flow Rate Fraction of Inspired Oxygen Intake/Output Intake/Output: Intake & Output 09/11/25 09/12/25 09/13/25 09/14/25 23:59 23:59 23:59 23:59 Intake Total 2464.2 3085.4 600 Output Total 2790 180 Balance 2464.2 295.4 420 Meds/Results Medications: Active Medications Generic Name Dose Route Start Last Admin Trade Name Freq PRN Reason Stop Dose Admin Hydrocodone Bitart/Acetaminophen 1 tab 09/13/25 18:34 Hydrocodone/Acetaminophen (*Crx) 5-325 Mg Tablet PO Q4H PRN Pain Rated 4-6 Hydrocodone Bitart/Acetaminophen 1 tab 09/13/25 18:34 Hydrocodone/Acetaminophen (*Crx) 10-325 Mg Tablet PO Q4H PRN Pain Rated 7-10 Enoxaparin Sodium 40 mg 09/13/25 09:00 09/13/25 08:09 Enoxaparin 40 Mg/0.4 Ml Syringe SUB-Q 40 mg DAILY MACK Administration Ibuprofen 800 mg in 200 mls @ 400 mls/hr 09/13/25 18:34 Caldolor 800 Mg/200 Ml IVPB Q6H PRN Breakthrough Pain Rated 1-3 or NPO Piperacillin Sod/Tazobactam 50 mls @ 100 mls/hr 09/13/25 20:00 09/14/25 02:00 Sod 3.375 gm/ Sodium Chloride IVPB Infused Q6H MACK Infusion Morphine Sulfate 2 mg 09/13/25 18:34 09/13/25 20:18 Morphine Sulfate (*Crx) 4 Mg/Ml Inj IV PUSH 2 mg Q2H PRN Administration Breakthrough Pain Rated 4-6 or NPO Morphine Sulfate 4 mg 09/13/25 18:34 09/14/25 06:33 Morphine Sulfate (*Crx) 4 Mg/Ml Inj IV PUSH 4 mg Q2H PRN Administration Breakthrough Pain Rated 7-10 or NPO Naloxone HCl 0.1 mg 09/13/25 18:34 Naloxone Hcl 0.4 Mg/Ml Vial IV PUSH Q2M PRN Opiate Reversal Ondansetron HCl 4 mg 09/12/25 09:08 Ondansetron Inj 4 Mg/2 Ml Vial IV PUSH Q4H PRN Nausea Pantoprazole Sodium 40 mg 09/13/25 20:00 09/13/25 20:17 Pantoprazole Sodium Iv 40 Mg Vial IV PUSH 40 mg BID MACK Administration Radiology Results: ITS Impressions Chest/Abdomen/Pelvis CT 09/12/25 08:10 IMPRESSION: CHEST- 1. No acute abnormality, other than bibasilar atelectasis. ABDOMEN/PELVIS- 1. Gastric ulcer and/or gastritis. Possibility of microperforation given organized perihepatic ascites and/or fluid collection or abscess. 2. Gallstone with nonspecific gallbladder wall thickening. If concern for cholecystitis, consider ultrasound and/or HIDA scan. Chest X-Ray 09/12/25 08:33 IMPRESSION: 1. No acute cardiopulmonary findings. Abdomen Ultrasound 09/12/25 09:33 IMPRESSION: 1. Consistent with acute cholecystitis. Upper GI Series 09/13/25 09:19 IMPRESSION: 1. Exam limited as above. No large ulceration, perforation or extravasation of contrast 2. Tertiary contractions in the esophagus suggest mild esophagitis; small hiatal hernia also noted. 3. Recommend follow-up KUB in 4 to 6 hours to evaluate enteric transit of contrast. Labs Labs: Laboratory Results - last 24 hr 09/14/25 06:34 WBC 15.5 H RBC 5.02 Hgb 14.7 Hct 47.8 MCV 95.2 MCH 29.3 MCHC 30.8 L RDW 14.6 H Plt Count 213 MPV 9.3 Immature Gran % (Auto) 3.2 H Neut % (Auto) 83.7 H Lymph % (Auto) 4.1 L Ransom % (Auto) 7.8 Eos % (Auto) 0.5 Baso % (Auto) 0.7 Lymph # (Auto) 0.64 L Ransom # (Auto) 1.2 H Eos # (Auto) 0.1 Baso # (Auto) 0.1 Abs Immat Gran (auto) 0.50 H Absolute Neuts (auto) 13.0 H Absolute Nucleated RBC 0.000 Nucleated RBC % 0.0 Sodium 138 Potassium 4.2 Chloride 104 Carbon Dioxide 32 H Anion Gap 2 L BUN 24 H Creatinine 1.18 Estim Creat Clear Calc 88 Estimated GFR > 60 Glucose 127 H Calcium 8.3 L Magnesium 2.7 H Total Bilirubin 1.4 H AST 69 H ALT 24 Alkaline Phosphatase 158 H Total Protein 6.9 Albumin 3.3 L Hospitalist MIPS Advance Care Plan I have confirmed that the patient's Advanced Care Plan is present, code status is documented, or surrogate decision maker is listed in patient medical record.: Yes Medication Reconciliation I have utilized all available resources to obtain, update and review the patients current medications (includes all prescriptions, OTC, herbals, cannabis, and nutritional supplements).: Yes
[2025-09-14] MEDS: ENOXAPARIN 40 MG/0.4 ML SYRINGE SUB-Q (09:11)
[2025-09-14] MEDS: PANTOPRAZOLE SODIUM IV 40 MG VIAL IV PUSH (09:11)
--- NOTE | 2025-09-14 09:53 | WPDANESPN ---
Anes - Prog Note Post-Op Date/Time: 09/14/25 09:53 Cardiovascular status: normal Respiratory status: normal Airway patency: baseline Mental status: baseline Post-Op hydration status: normal Vital Signs: Last Vital Signs Temp 36.4 C 09/14/25 07:51 Pulse 104 H 09/14/25 07:51 Resp 22 H 09/14/25 07:51 BP 134/72 09/14/25 07:51 Pulse Ox 97 09/14/25 07:51 O2 Del Method Nasal Cannula 09/14/25 03:29 O2 Flow Rate 4 09/14/25 03:29 FiO2 36 09/13/25 21:40 Pain Score (VAS): 4 I/O: Intake & Output 09/13/25 09/14/25 09/14/25 23:59 07:59 15:59 Intake Total 1050 600 600 Output Total 1590 180 30 Balance -540 420 570 Laboratory Tests 09/14/25 06:34 09/14/25 06:34 09/14/25 06:34 WBC 15.5 H RBC 5.02 Hgb 14.7 Hct 47.8 MCV 95.2 MCH 29.3 MCHC 30.8 L RDW 14.6 H Plt Count 213 MPV 9.3 Immature Gran % (Auto) 3.2 H Neut % (Auto) 83.7 H Lymph % (Auto) 4.1 L [place]verse % (Auto) 7.8 Eos % (Auto) 0.5 Baso % (Auto) 0.7 Lymph # (Auto) 0.64 L [place]verse # (Auto) 1.2 H Eos # (Auto) 0.1 Baso # (Auto) 0.1 Abs Immat Gran (auto) 0.50 H Absolute Neuts (auto) 13.0 H Absolute Nucleated RBC 0.000 Nucleated RBC % 0.0 Sodium 138 Potassium 4.2 Chloride 104 Carbon Dioxide 32 H Anion Gap 2 L BUN 24 H Creatinine 1.18 Estim Creat Clear Calc 88 Estimated GFR > 60 Glucose 127 H Calcium 8.3 L Magnesium 2.7 H Total Bilirubin 1.4 H AST 69 H ALT 24 Alkaline Phosphatase 158 H Total Protein 6.9 Albumin 3.3 L Post-procedural complaints: none Patient Feedback: Patient satisfied with anesthetic care.
--- NOTE | 2025-09-14 11:27 | P.PNGS_ITS ---
Progress Note: A&P Assessment and Plan (1) Acute calculous cholecystitis: Code(s): K80.00 - Calculus of gallbladder with acute cholecystitis without obstruction Status: Acute Assessment and Plan: * POD1 following laparoscopic subtotal cholecystectomy, drainage of intra- abdominal abscess, wedge liver biopsy. Patient found to have perforated acute calculous cholecystitis with an intraabdominal abscess. * Abdominal pain, exam, and labs improved. * Will monitor HAYDEE drain output * Continue IV Zosyn * Advance to full liquids * Encouraged getting up to chair and increasing activity as tolerated (2) SIRS (systemic inflammatory response syndrome): Code(s): R65.10 - Systemic inflammatory response syndrome (SIRS) of non-infectious origin without acute organ dysfunction Status: Acute Assessment and Plan: * Likely secondary to perforated acute calculous cholecystitis with abscess. S/p lap subtotal cholecystectomy as mentioned above. Fevers stopped around midnight, but he is still tachycardic. Blood cx pending. * Continue IV antibiotics (3) Abnormal CT of the abdomen: Code(s): R93.5 - Abnormal findings on diagnostic imaging of other abdominal regions, including retroperitoneum Status: Acute Assessment and Plan: * Laparoscopic wedge liver biopsy during surgery. Pathology pending. (4) Lymphedema: Code(s): I89.0 - Lymphedema, not elsewhere classified Status: Acute Plan I have discussed the patient's case, recommendations, and treatment plan with Dr. Brady. Subjective Subjective Date/Time Seen: 09/14/25 11:27 Patient reports: no new complaints, feels better, pain is less, tolerating liquids well, flatus, bowel movement (yesterday multiple BMs after oral contrast for upper GI), shortness of breath (still has some shortness of breath with activity, currently on 4 liters O2) and fever (fevers stopped around midnight last night) Interval history: Patient reports feeling much better today. He reports his abdominal pain has improved significantly since surgery. He was very hungry this morning and tolerated clear liquids well. No nausea or vomiting. WBC count down to 15,000. Bilirubin coming down. Review of Systems Review of Systems: All systems reviewed & are unremarkable except as noted in HPI and below Exam Const: General: comfortable and no acute distress Orientation/consciousness: patient oriented x3 Cardio: Rate: tachycardic Rhythm: regular rhythm GI: Inspection: incision (dry and glue intact), Pannus present, obesity and other (HAYDEE scant serosanguineous drainage) GI Palp: Yes Soft to palpation, Yes Tenderness to palpation present (GI) (improved, only mild RUQ TTP), No Guarding due to palpation present (GI) and No Rebound tenderness present Auscultation: normal bowel sounds Objective Data Vital Signs Vital Signs: Vital Signs - 24 hr 09/13/25 12:00 09/13/25 12:00 09/13/25 12:00 Temperature 98 F Pulse Rate 133 H 120 H Respiratory Rate 20 Blood Pressure 143/93 H Pulse Oximetry 93 95 Oxygen Delivery Nasal Cannula Oxygen Flow Rate 3 Fraction of Inspired Oxygen 09/13/25 13:15 09/13/25 16:32 09/13/25 16:45 Temperature 97.2 F L 97.8 F Pulse Rate 118 H 110 H 114 H Respiratory Rate 16 10 L 15 Blood Pressure 150/83 H 155/75 H 163/81 H Pulse Oximetry 97 97 100 Oxygen Delivery Nasal Cannula Simple Face Mask Oxygen Flow Rate 3 8 8 Fraction of Inspired Oxygen 09/13/25 17:00 09/13/25 17:15 09/13/25 17:24 Temperature Pulse Rate 119 H 122 H 124 H Respiratory Rate 20 16 Blood Pressure 262/91 H 156/92 H Pulse Oximetry 99 95 Oxygen Delivery Simple Face Mask Nasal Cannula Oxygen Flow Rate 8 3 Fraction of Inspired Oxygen 09/13/25 17:30 09/13/25 17:45 09/13/25 17:49 Temperature Pulse Rate 112 H 112 H 112 H Respiratory Rate 17 20 Blood Pressure 156/93 H 145/81 H Pulse Oximetry 92 95 Oxygen Delivery Nasal Cannula Nasal Cannula Oxygen Flow Rate 3 3 Fraction of Inspired Oxygen 09/13/25 18:00 09/13/25 18:15 09/13/25 18:30 Temperature Pulse Rate 106 H 108 H 107 H Respiratory Rate 21 H 21 H 20 Blood Pressure 140/87 141/84 H 122/83 Pulse Oximetry 95 93 93 Oxygen Delivery Nasal Cannula Nasal Cannula Nasal Cannula Oxygen Flow Rate 3 3 3 Fraction of Inspired Oxygen 09/13/25 18:45 09/13/25 20:00 09/13/25 20:00 Temperature 99.8 F H 100.5 F H 100.5 F H Pulse Rate 108 H 109 H 109 H Respiratory Rate 18 18 18 Blood Pressure 145/93 H 133/67 133/67 Pulse Oximetry 96 97 97 Oxygen Delivery Oxygen Flow Rate Fraction of Inspired Oxygen 09/13/25 20:00 09/13/25 20:00 09/13/25 21:40 Temperature Pulse Rate 106 H Respiratory Rate Blood Pressure Pulse Oximetry 94 95 Oxygen Delivery High Flow Nasal Cannula Nasal Cannula Oxygen Flow Rate 6 4 Fraction of Inspired Oxygen 36 09/13/25 21:57 09/14/25 00:00 09/14/25 00:00 Temperature 100.8 F H 100.8 F H Pulse Rate 105 H 108 H 108 H Respiratory Rate 18 18 Blood Pressure 130/61 130/61 Pulse Oximetry 98 98 Oxygen Delivery Oxygen Flow Rate Fraction of Inspired Oxygen 09/14/25 00:00 09/14/25 00:00 09/14/25 02:00 Temperature Pulse Rate 110 H 105 H Respiratory Rate Blood Pressure Pulse Oximetry 94 Oxygen Delivery Nasal Cannula Oxygen Flow Rate 4 Fraction of Inspired Oxygen 09/14/25 03:29 09/14/25 04:00 09/14/25 04:00 Temperature 98.8 F Pulse Rate 104 H 111 H Respiratory Rate 18 Blood Pressure 142/69 H Pulse Oximetry 95 94 Oxygen Delivery Nasal Cannula Oxygen Flow Rate 4 Fraction of Inspired Oxygen 09/14/25 05:48 09/14/25 07:51 Temperature 97.6 F Pulse Rate 107 H 104 H Respiratory Rate 22 H Blood Pressure 134/72 Pulse Oximetry 97 Oxygen Delivery Oxygen Flow Rate Fraction of Inspired Oxygen Intake/Output Intake/Output: Intake & Output 09/11/25 09/12/25 09/13/25 09/14/25 23:59 23:59 23:59 23:59 Intake Total 2464.2 3085.4 1200 Output Total 2790 210 Balance 2464.2 295.4 990 Meds/Results Medications: Active Medications Generic Name Dose Route Start Last Admin Trade Name Freq PRN Reason Stop Dose Admin Hydrocodone Bitart/Acetaminophen 1 tab 09/13/25 18:34 Hydrocodone/Acetaminophen (*Crx) 5-325 Mg Tablet PO Q4H PRN Pain Rated 4-6 Hydrocodone Bitart/Acetaminophen 1 tab 09/13/25 18:34 Hydrocodone/Acetaminophen (*Crx) 10-325 Mg Tablet PO Q4H PRN Pain Rated 7-10 Enoxaparin Sodium 40 mg 09/13/25 09:00 09/14/25 09:11 Enoxaparin 40 Mg/0.4 Ml Syringe SUB-Q 40 mg DAILY MACK Administration Ibuprofen 800 mg in 200 mls @ 400 mls/hr 09/13/25 18:34 Caldolor 800 Mg/200 Ml IVPB Q6H PRN Breakthrough Pain Rated 1-3 or NPO Piperacillin Sod/Tazobactam 50 mls @ 100 mls/hr 09/13/25 20:00 09/14/25 09:11 Sod 3.375 gm/ Sodium Chloride IVPB 100 mls/hr Q6H MACK Administration Morphine Sulfate 2 mg 09/13/25 18:34 09/13/25 20:18 Morphine Sulfate (*Crx) 4 Mg/Ml Inj IV PUSH 2 mg Q2H PRN Administration Breakthrough Pain Rated 4-6 or NPO Morphine Sulfate 4 mg 09/13/25 18:34 09/14/25 06:33 Morphine Sulfate (*Crx) 4 Mg/Ml Inj IV PUSH 4 mg Q2H PRN Administration Breakthrough Pain Rated 7-10 or NPO Naloxone HCl 0.1 mg 09/13/25 18:34 Naloxone Hcl 0.4 Mg/Ml Vial IV PUSH Q2M PRN Opiate Reversal Ondansetron HCl 4 mg 09/12/25 09:08 Ondansetron Inj 4 Mg/2 Ml Vial IV PUSH Q4H PRN Nausea Pantoprazole Sodium 40 mg 09/13/25 20:00 09/14/25 09:11 Pantoprazole Sodium Iv 40 Mg Vial IV PUSH 40 mg BID MACK Administration Radiology Results: ITS Impressions Chest/Abdomen/Pelvis CT 09/12/25 08:10 IMPRESSION: CHEST- 1. No acute abnormality, other than bibasilar atelectasis. ABDOMEN/PELVIS- 1. Gastric ulcer and/or gastritis. Possibility of microperforation given organized perihepatic ascites and/or fluid collection or abscess. 2. Gallstone with nonspecific gallbladder wall thickening. If concern for cholecystitis, consider ultrasound and/or HIDA scan. Chest X-Ray 09/12/25 08:33 IMPRESSION: 1. No acute cardiopulmonary findings. Abdomen Ultrasound 09/12/25 09:33 IMPRESSION: 1. Consistent with acute cholecystitis. Upper GI Series 09/13/25 09:19 IMPRESSION: 1. Exam limited as above. No large ulceration, perforation or extravasation of contrast 2. Tertiary contractions in the esophagus suggest mild esophagitis; small hiatal hernia also noted. 3. Recommend follow-up KUB in 4 to 6 hours to evaluate enteric transit of contrast. Labs Labs: Laboratory Results - last 24 hr 09/14/25 06:34 WBC 15.5 H RBC 5.02 Hgb 14.7 Hct 47.8 MCV 95.2 MCH 29.3 MCHC 30.8 L RDW 14.6 H Plt Count 213 MPV 9.3 Immature Gran % (Auto) 3.2 H Neut % (Auto) 83.7 H Lymph % (Auto) 4.1 L Kern % (Auto) 7.8 Eos % (Auto) 0.5 Baso % (Auto) 0.7 Lymph # (Auto) 0.64 L [place] # (Auto) 1.2 H Eos # (Auto) 0.1 Baso # (Auto) 0.1 Abs Immat Gran (auto) 0.50 H Absolute Neuts (auto) 13.0 H Absolute Nucleated RBC 0.000 Nucleated RBC % 0.0 Sodium 138 Potassium 4.2 Chloride 104 Carbon Dioxide 32 H Anion Gap 2 L BUN 24 H Creatinine 1.18 Estim Creat Clear Calc 88 Estimated GFR > 60 Glucose 127 H Calcium 8.3 L Magnesium 2.7 H Total Bilirubin 1.4 H AST 69 H ALT 24 Alkaline Phosphatase 158 H Total Protein 6.9 Albumin 3.3 L
[2025-09-15] VITALS (9 sets, daily range): BP systolic 140–162; BP diastolic 68–69; PULSE 73–90; RESP 16–20; TEMP 35.6–36.7; O2SAT 92–98
[2025-09-15] MEDS: PIPERACILLIN/TAZOBACTAM SOD 3.375 GM in SODIUM CHLORIDE 0.9% IV 50 ML 100 ML IVPB ×4 (02:08→20:52)
[2025-09-15] MEDS: IPRATROPIUM 0.5 MG/ALBUTEROL SULFATE 2.5 MG (BASE) AMPUL.NEB 3 ML INHALATION ×2 (04:10→23:32)
[2025-09-15 06:48] LABS: Hematocrit 47.0 % (42.0-52.0); Hemoglobin 13.9 g/dL (14.0-18.0); Mean Corpuscular HGB Conc 29.6 g/dl (32-36); Mean Corpuscular Hemoglobin 28.4 pg (26-34); Mean Corpuscular Volume 96.1 fl (80-100); Platelet Count Result 210 k/mm3 (150-375); Red Blood Count 4.89 M/mm3 (4.6-6.20); White Blood Count 12.2 K/mm3 (4.5-10.0)
[2025-09-15 07:11] LABS: Alanine Aminotransferase 19 U/L (6-50); Albumin Level 3.1 g/dL (3.5-5.1); Alkaline Phosphatase 189 U/L (38-126); Anion Gap 1 mmol/L (4-12); Aspartate Amino Transferase 61 U/L (17-59); Bilirubin,Total 0.9 mg/dL (0.2-1.3); Blood Urea Nitrogen 23 mg/dL (9-20); Calcium 8.0 mg/dL (8.4-10.2); Carbon Dioxide 36 mmol/L (22-30); Chloride 100 mmol/L (98-107); Estimated CRCL calculation 108 ml/min; Estimated Glomerular Filt Rate > 60; Glucose 129 mg/dL (65-110); Potassium 4.0 mmol/L (3.4-5.0); Sodium 137 mmol/L (137-145); Total Protein 6.5 g/dL (6.3-8.2)
[2025-09-15] MEDS: PANTOPRAZOLE SODIUM IV 40 MG VIAL IV PUSH ×2 (09:26→17:49)
[2025-09-15] MEDS: ENOXAPARIN 40 MG/0.4 ML SYRINGE SUB-Q (09:27)
[2025-09-15] MEDS: HYDROcodone/acetaminophen (*CRX) 5-325 MG TABLET 1 TAB PO ×3 (09:27→22:12)
--- NOTE | 2025-09-15 10:38 | P.PNGS_ITS ---
Progress Note: A&P Assessment and Plan (1) Acute calculous cholecystitis: Code(s): K80.00 - Calculus of gallbladder with acute cholecystitis without obstruction Status: Acute Assessment and Plan: * POD2 following laparoscopic subtotal cholecystectomy, drainage of intra- abdominal abscess, wedge liver biopsy. Patient found to have perforated acute calculous cholecystitis with an intraabdominal abscess. * Patient still notes some RUQ pain. * Will monitor HAYDEE drain output * Continue IV Zosyn. * Patient has had multiple bowel movements. Tolerated full liquids. Advance to regular diet. * Patient is still requiring 3-5 L O2 via nasal cannula. He states he was not on oxygen at home. Encouraged ambulation and increasing activity as tolerated. Encourage incentive spirometry. (2) SIRS (systemic inflammatory response syndrome): Code(s): R65.10 - Systemic inflammatory response syndrome (SIRS) of non-infectious origin without acute organ dysfunction Status: Acute Assessment and Plan: * Likely secondary to perforated acute calculous cholecystitis with abscess. S/p lap subtotal cholecystectomy as mentioned above. Fevers have resolved and pulse rate is now within normal limits. Blood cx pending. * Continue IV antibiotics (3) Abnormal CT of the abdomen: Code(s): R93.5 - Abnormal findings on diagnostic imaging of other abdominal regions, including retroperitoneum Status: Acute Assessment and Plan: * Laparoscopic wedge liver biopsy during surgery. Pathology pending. (4) Lymphedema: Code(s): I89.0 - Lymphedema, not elsewhere classified Status: Acute Plan I have discussed the patient's case, recommendations, and treatment plan with Dr. Brady. Subjective Subjective Date/Time Seen: 09/15/25 10:38 Patient reports: no new complaints, feels better, still having pain, tolerating liquids well and bowel movement Interval history: Patient doing well today. Notes some abdominal soreness. Tolerating full liquids without nausea or vomiting. Multiple loose bowel movements. Exam Const: General: comfortable and no acute distress GI: Inspection: incision (dry and glue intact) and obesity GI Palp: Yes abdominal tenderness (RUQ) and Yes Soft to palpation Auscultation: normal bowel sounds Rectal Exam: deferred Other: Drain with light brown serous drainage Skin: General skin exam: normal color and no rashes or lesions noted Extrem: General: normal to inspection Psych: Mental Status: mental status grossly normal Objective Data Vital Signs Vital Signs: Vital Signs - 24 hr 09/14/25 11:22 09/14/25 12:00 09/14/25 12:00 Temperature 97.6 F Pulse Rate 104 H 93 Respiratory Rate 22 H Blood Pressure 134/72 Pulse Oximetry 97 99 Oxygen Delivery Nasal Cannula Oxygen Flow Rate 4 09/14/25 15:00 09/14/25 15:52 09/14/25 20:00 Temperature 98.1 F Pulse Rate 93 Respiratory Rate 18 Blood Pressure 142/70 H Pulse Oximetry 96 95 97 Oxygen Delivery Nasal Cannula Nasal Cannula Oxygen Flow Rate 2 4 09/14/25 20:00 09/14/25 22:30 09/15/25 04:12 Temperature 98.7 F Pulse Rate 79 87 Respiratory Rate 18 20 Blood Pressure 120/56 L Pulse Oximetry 97 92 Oxygen Delivery Nasal Cannula Oxygen Flow Rate 4 09/15/25 04:21 09/15/25 04:40 09/15/25 08:34 Temperature 98.1 F Pulse Rate 90 88 Respiratory Rate 20 16 Blood Pressure 162/69 H Pulse Oximetry 98 93 Oxygen Delivery Nasal Cannula Oxygen Flow Rate 5 Intake/Output Intake/Output: Intake & Output 09/12/25 09/13/25 09/14/25 09/15/25 23:59 23:59 23:59 23:59 Intake Total 2464.2 3085.4 2230 168 Output Total 2790 1210 530 Balance 2464.2 295.4 1020 -362 Meds/Results Medications: Active Medications Generic Name Dose Route Start Last Admin Trade Name Freq PRN Reason Stop Dose Admin Hydrocodone Bitart/Acetaminophen 1 tab 09/13/25 18:34 09/15/25 09:27 Hydrocodone/Acetaminophen (*Crx) 5-325 Mg Tablet PO 1 tab Q4H PRN Administration Pain Rated 4-6 Hydrocodone Bitart/Acetaminophen 1 tab 09/13/25 18:34 Hydrocodone/Acetaminophen (*Crx) 10-325 Mg Tablet PO Q4H PRN Pain Rated 7-10 Albuterol/Ipratropium 3 ml 09/15/25 04:05 09/15/25 04:10 Ipratropium 0.5 Mg/Albuterol Sulfate 2.5 Mg (Base) Ampul.Neb 3 Ml INHALATION 3 ml Q6HRT PRN Administration Shortness Of Breath Enoxaparin Sodium 40 mg 09/13/25 09:00 09/15/25 09:27 Enoxaparin 40 Mg/0.4 Ml Syringe SUB-Q 40 mg DAILY MACK Administration Ibuprofen 800 mg in 200 mls @ 400 mls/hr 09/13/25 18:34 Caldolor 800 Mg/200 Ml IVPB Q6H PRN Breakthrough Pain Rated 1-3 or NPO Piperacillin Sod/Tazobactam 50 mls @ 100 mls/hr 09/13/25 20:00 09/15/25 09:27 Sod 3.375 gm/ Sodium Chloride IVPB 100 mls/hr Q6H MACK Administration Morphine Sulfate 2 mg 09/13/25 18:34 09/13/25 20:18 Morphine Sulfate (*Crx) 4 Mg/Ml Inj IV PUSH 2 mg Q2H PRN Administration Breakthrough Pain Rated 4-6 or NPO Morphine Sulfate 4 mg 09/13/25 18:34 09/14/25 06:33 Morphine Sulfate (*Crx) 4 Mg/Ml Inj IV PUSH 4 mg Q2H PRN Administration Breakthrough Pain Rated 7-10 or NPO Naloxone HCl 0.1 mg 09/13/25 18:34 Naloxone Hcl 0.4 Mg/Ml Vial IV PUSH Q2M PRN Opiate Reversal Ondansetron HCl 4 mg 09/12/25 09:08 Ondansetron Inj 4 Mg/2 Ml Vial IV PUSH Q4H PRN Nausea Pantoprazole Sodium 40 mg 09/13/25 20:00 09/15/25 09:26 Pantoprazole Sodium Iv 40 Mg Vial IV PUSH 40 mg BID MACK Administration Radiology Results: ITS Impressions Chest/Abdomen/Pelvis CT 09/12/25 08:10 IMPRESSION: CHEST- 1. No acute abnormality, other than bibasilar atelectasis. ABDOMEN/PELVIS- 1. Gastric ulcer and/or gastritis. Possibility of microperforation given organized perihepatic ascites and/or fluid collection or abscess. 2. Gallstone with nonspecific gallbladder wall thickening. If concern for cholecystitis, consider ultrasound and/or HIDA scan. Chest X-Ray 09/12/25 08:33 IMPRESSION: 1. No acute cardiopulmonary findings. Abdomen Ultrasound 09/12/25 09:33 IMPRESSION: 1. Consistent with acute cholecystitis. Upper GI Series 09/13/25 09:19 IMPRESSION: 1. Exam limited as above. No large ulceration, perforation or extravasation of contrast 2. Tertiary contractions in the esophagus suggest mild esophagitis; small hiatal hernia also noted. 3. Recommend follow-up KUB in 4 to 6 hours to evaluate enteric transit of contrast. Labs Labs: Laboratory Results - last 24 hr 09/15/25 05:53 WBC 12.2 H RBC 4.89 Hgb 13.9 L Hct 47.0 MCV 96.1 MCH 28.4 MCHC 29.6 L RDW 14.6 H Plt Count 210 MPV 9.4 Sodium 137 Potassium 4.0 Chloride 100 Carbon Dioxide 36 H Anion Gap 1 L BUN 23 H Creatinine 0.95 Estim Creat Clear Calc 108 Estimated GFR > 60 Glucose 129 H Calcium 8.0 L Total Bilirubin 0.9 AST 61 H ALT 19 Alkaline Phosphatase 189 H Total Protein 6.5 Albumin 3.1 L
--- NOTE | 2025-09-15 12:07 | P.PNIM_ITS ---
Assessment and Plan Assessment and Plan (1) Sepsis: Code(s): A41.9 - Sepsis, unspecified organism Status: Resolved Plan Sepsis From acute cholecystitis and gastric ulcer with possible perforation Tachycardia, tachypnea resolving. EBC 20.[address] showed gastric ulcer with possible perforation Liver Us showed acute cholecystitis Underwent 09/13 Laparoscopic subtotal cholecystectomy,Laparoscopic drainage of intra-abdominal abscess, and Laparoscopic wedge liver biopsy Blood culture pending Continue Zosyn and PPI IV, IVF Gen surgery and GI consulted Gastric ulcer with possible perforation CT AP reviewed GI reviewed and noted that CT finding is incidental and recommended outpatient follow after management for Acute cholecystitis GI eval noted Acute cholecystitis US liver reviewed Continue Zosyn and IVF S/P Laparoscopic subtotal cholecystectomy,Laparoscopic drainage of intra- abdominal abscess, and Laparoscopic wedge liver biopsy Gen surgery consulted Lymphedema with venous ulcer Continue compression therapy Wound care following DVT prophylaxis on Sq Lovenox Full code SDM: Zulma Leigh Subjective Date/time seen: 09/15/25 12:07 Interval history: No acute events overnight. Patient underwent lap choly and liver biopsy. WBC improving. Patient is currently on regular diet Review of Systems Review of Systems: All other systems were reviewed and negative except as noted in the HPI above Exam Narrative: General: alert and comfortable Eyes: EOMI, PERRLA ENNT External ears normal, Neck is supple, no masses, Respiratory systems: Clear to auscultation Cardiovascular S1, S2, normal rhythm, no murmur, rub, or gallop; no thrill or palpable murmurs on palpation. Gastrointestinal: soft, diffuse abd tenderness , and non-distended abdomen with no masses; BS present Skin: non pitting leg edema, with venous ulcer Musculoskeletal: no abnormality and no tenderness, normal ROM Neurologic: Alert and oriented x3, non focal Mental Status Exam: normal affect Objective Data Vital Signs Vital Signs: Vital Signs - 24 hr 09/14/25 15:00 09/14/25 15:52 09/14/25 20:00 Temperature 98.1 F Pulse Rate 93 Respiratory Rate 18 Blood Pressure 142/70 H Pulse Oximetry 96 95 97 Oxygen Delivery Nasal Cannula Nasal Cannula Oxygen Flow Rate 2 4 09/14/25 20:00 09/14/25 22:30 09/15/25 04:12 Temperature 98.7 F Pulse Rate 79 87 Respiratory Rate 18 20 Blood Pressure 120/56 L Pulse Oximetry 97 92 Oxygen Delivery Nasal Cannula Oxygen Flow Rate 4 09/15/25 04:21 09/15/25 04:40 09/15/25 08:34 Temperature 98.1 F Pulse Rate 90 88 Respiratory Rate 20 16 Blood Pressure 162/69 H Pulse Oximetry 98 93 Oxygen Delivery Nasal Cannula Oxygen Flow Rate 5 09/15/25 09:30 Temperature Pulse Rate Respiratory Rate Blood Pressure Pulse Oximetry 93 Oxygen Delivery Nasal Cannula Oxygen Flow Rate 5 Intake/Output Intake/Output: Intake & Output 09/12/25 09/13/25 09/14/25 09/15/25 23:59 23:59 23:59 23:59 Intake Total 2464.2 3085.4 2230 768 Output Total 2790 1210 530 Balance 2464.2 295.4 1020 238 Meds/Results Medications: Active Medications Generic Name Dose Route Start Last Admin Trade Name Freq PRN Reason Stop Dose Admin Hydrocodone Bitart/Acetaminophen 1 tab 09/13/25 18:34 09/15/25 09:27 Hydrocodone/Acetaminophen (*Crx) 5-325 Mg Tablet PO 1 tab Q4H PRN Administration Pain Rated 4-6 Hydrocodone Bitart/Acetaminophen 1 tab 09/13/25 18:34 Hydrocodone/Acetaminophen (*Crx) 10-325 Mg Tablet PO Q4H PRN Pain Rated 7-10 Albuterol/Ipratropium 3 ml 09/15/25 04:05 09/15/25 04:10 Ipratropium 0.5 Mg/Albuterol Sulfate 2.5 Mg (Base) Ampul.Neb 3 Ml INHALATION 3 ml Q6HRT PRN Administration Shortness Of Breath Enoxaparin Sodium 40 mg 09/13/25 09:00 09/15/25 09:27 Enoxaparin 40 Mg/0.4 Ml Syringe SUB-Q 40 mg DAILY MACK Administration Ibuprofen 800 mg in 200 mls @ 400 mls/hr 09/13/25 18:34 Caldolor 800 Mg/200 Ml IVPB Q6H PRN Breakthrough Pain Rated 1-3 or NPO Piperacillin Sod/Tazobactam 50 mls @ 100 mls/hr 09/13/25 20:00 09/15/25 09:27 Sod 3.375 gm/ Sodium Chloride IVPB 100 mls/hr Q6H MACK Administration Morphine Sulfate 2 mg 09/13/25 18:34 09/13/25 20:18 Morphine Sulfate (*Crx) 4 Mg/Ml Inj IV PUSH 2 mg Q2H PRN Administration Breakthrough Pain Rated 4-6 or NPO Morphine Sulfate 4 mg 09/13/25 18:34 09/14/25 06:33 Morphine Sulfate (*Crx) 4 Mg/Ml Inj IV PUSH 4 mg Q2H PRN Administration Breakthrough Pain Rated 7-10 or NPO Naloxone HCl 0.1 mg 09/13/25 18:34 Naloxone Hcl 0.4 Mg/Ml Vial IV PUSH Q2M PRN Opiate Reversal Ondansetron HCl 4 mg 09/12/25 09:08 Ondansetron Inj 4 Mg/2 Ml Vial IV PUSH Q4H PRN Nausea Pantoprazole Sodium 40 mg 09/13/25 20:00 09/15/25 09:26 Pantoprazole Sodium Iv 40 Mg Vial IV PUSH 40 mg BID MACK Administration Radiology Results: ITS Impressions Chest/Abdomen/Pelvis CT 09/12/25 08:10 IMPRESSION: CHEST- 1. No acute abnormality, other than bibasilar atelectasis. ABDOMEN/PELVIS- 1. Gastric ulcer and/or gastritis. Possibility of microperforation given organized perihepatic ascites and/or fluid collection or abscess. 2. Gallstone with nonspecific gallbladder wall thickening. If concern for cholecystitis, consider ultrasound and/or HIDA scan. Chest X-Ray 09/12/25 08:33 IMPRESSION: 1. No acute cardiopulmonary findings. Abdomen Ultrasound 09/12/25 09:33 IMPRESSION: 1. Consistent with acute cholecystitis. Upper GI Series 09/13/25 09:19 IMPRESSION: 1. Exam limited as above. No large ulceration, perforation or extravasation of contrast 2. Tertiary contractions in the esophagus suggest mild esophagitis; small hiatal hernia also noted. 3. Recommend follow-up KUB in 4 to 6 hours to evaluate enteric transit of contrast. Labs Labs: Laboratory Results - last 24 hr 09/15/25 05:53 WBC 12.2 H RBC 4.89 Hgb 13.9 L Hct 47.0 MCV 96.1 MCH 28.4 MCHC 29.6 L RDW 14.6 H Plt Count 210 MPV 9.4 Sodium 137 Potassium 4.0 Chloride 100 Carbon Dioxide 36 H Anion Gap 1 L BUN 23 H Creatinine 0.95 Estim Creat Clear Calc 108 Estimated GFR > 60 Glucose 129 H Calcium 8.0 L Total Bilirubin 0.9 AST 61 H ALT 19 Alkaline Phosphatase 189 H Total Protein 6.5 Albumin 3.1 L Hospitalist MIPS Advance Care Plan I have confirmed that the patient's Advanced Care Plan is present, code status is documented, or surrogate decision maker is listed in patient medical record.: Yes Medication Reconciliation I have utilized all available resources to obtain, update and review the patients current medications (includes all prescriptions, OTC, herbals, cannabis, and nutritional supplements).: Yes
--- NOTE | 2025-09-16 | ECHO_ITS ---
Patient Info Name: Madhu Leigh Age: 60 years : 1965 Gender: Male Ht: 67 in Wt: 348 lbs BSA: 2.83 m2 HR: 82 bpm BP: 157 / 67 mmHg Technical Quality: Poor Exam Date: 09/16/2025 3:35 PM Patient Status: I Admit Date: 09/12/2025 Exam Type: CA echo dop color flow w con Complete two-dimensional, color flow and Doppler transthoracic echocardiogram is performed with contrast to opacify the left ventricle and to improve the deliniation of the left ventricle endocardial borders. Staff Referring Physician: [employer] Teacher: Westley Rushing III Attending Provider: Ti Jay Contrast/Agitated Saline Contrast/Ag. Saline: Definity Amount: 2.00 ml Administered By: Westley Rushing III Existing IV Access: Yes IV Access Condition: patent with no signs of infiltration Reason for Poor Study: poor echocardiographic windows Summary 1. Technically suboptimal study due to poor sonographic images. 2. Definity contrast administered improved wall motion interpretation. 3. Left ventricular chamber dimension is normal. 4. Left ventricular systolic function is normal, estimated at 55-60. 5. The left ventricular diastolic function is normal. 6. E/e' 9 is minimally elevated. 7. Left atrial chamber dimension is mildly enlarged. Left Ventricle E/e' 9 is minimally elevated. Left ventricular chamber dimension is normal. Left ventricular systolic function is normal, estimated at 55-60. The left ventricular diastolic function is normal. Technically suboptimal study due to poor sonographic images. Definity contrast administered improved wall motion interpretation. Right Ventricle Right ventricular chamber dimension is normal. Right ventricular systolic function is normal and with normal TAPSE 2.5 cm. Left Atria Left atrial chamber dimension is mildly enlarged. Right Atria Right atrial chamber dimension is normal. Aortic Valve The aortic valve is trileaflet. There is no aortic valve stenosis. There is no aortic valve regurgitation. Pulmonic Valve There is no pulmonic regurgitation. Mitral Valve There is no mitral valve stenosis. There is no mitral valve regurgitation. Tricuspid Valve There is no tricuspid valve regurgitation. Pericardium/Pleural There is no pericardial effusion. Inferior Vena Cava Normal inferior vena cava with >50% collapse upon inspiration consistent with normal right atrial pressure, 5 mmHg. Aorta The aortic root size at the sinus of Valsalva is normal. Left Ventricular Outflow Tract Name Value Normal LVOT 2D LVOT Diameter 2.2 cm LVOT Doppler LVOT Peak Velocity 156 cm/s LVOT Peak Gradient 10 mmHg LVOT Mean Gradient 5 mmHg LVOT VTI 27 cm LVOT VTI/AV VTI Ratio 0.9 LVOT Stroke Volume 103 ml LVOT CO 7.8 l/min LVOT CI 2.8 l/min/m2 Pulmonic Valve Name Value Normal PV Doppler PV Peak Velocity 144 cm/s PV Peak Gradient 8 mmHg PV Mean Gradient 5 mmHg Mitral Valve Name Value Normal MV Doppler MV Peak Gradient 6 mmHg MV Mean Gradient 3 mmHg MV Area (Cont Eq VTI) 3.3 cm2 MV Diastolic Function MV E Peak Velocity 109 cm/s MV A Peak Velocity 79 cm/s MV E/A 1.4 MV Decel Time (PW) 160 ms MV Annular TDI MV E/e' (Septal) 10.3 MV E/e' (Lateral) 9.6 MV E/e' (Average) 10.0 Tricuspid Valve Name Value Normal Estimated PAP/RSVP RA Pressure 5 mmHg <=5 TV Annular TDI TV Lateral Stephanie s' Velocity 14.8 cm/s >=9.5 Aortic Valve Name Value Normal AV Doppler AV Peak Velocity 199 cm/s AV Peak Gradient 16 mmHg AV Mean Gradient 7 mmHg AV VTI 30 cm AV Area (Cont Eq VTI) 3.4 cm2 >=3.0 AV Area (Cont Eq Joe) 3.0 cm2 AV DI (Joe) 0.78 AV Regurgitation 2D LVOT Area 3.8 cm2 Ventricles Name Value Normal LV Dimensions 2D/MM IVS Diastolic Thickness (2D) 1.5 cm 0.6-1.0 LVID Diastole (2D) 4.7 cm 4.2-5.8 LVIW Diastolic Thickness (2D) 1.0 cm 0.6-1.0 LVID Systole (2D) 3.2 cm 2.5-4.0 LVOT Diameter 2.2 cm LV Mass (2D Cubed) 230.31 g 88.00-224.00 LV Mass Index (2D Cubed) 81 g/m2 49-115 Relative Wall Thickness (2D) 0.44 <=0.42 LV Fractional Shortening/Ejection Fraction 2D/MM LV Fractional Shortening (2D) 31 % 25-43 LV EF (2D Teichholz) 59 % LV Diastolic Volume (4C MOD) 63 ml LV EF (4C MOD) 52 % LV Diastolic Volume (2C MOD) 132 ml LV EF (2C MOD) 58 % LV Diastolic Volume (BP MOD) 100 ml 62-150 LV Diastolic Volume Index (BP MOD) 35 ml/m2 34-74 LV Systolic Volume (BP MOD) 45 ml 21-61 LV Systolic Volume Index (BP MOD) 16 ml/m2 11-31 LV EF (BP MOD) 56 % 52-72 LV Diastolic Length (4C) 7.1 cm LV Systolic Length (4C) 6.5 cm LV Stroke Volume (4C MOD) 33 ml Atria Name Value Normal LA Dimensions LA Volume (4C A-L) 74 ml LA Volume (BP A-L) 84 ml RA Dimensions RA Systolic Major Wilmore Length (4C) 6.1 cm 2.1-2.7 RA Area (4C) 20.0 cm2 <=18.0 Report Signatures
[2025-09-16] MEDS: PIPERACILLIN/TAZOBACTAM SOD 3.375 GM in SODIUM CHLORIDE 0.9% IV 50 ML 100 ML IVPB ×4 (01:45→21:19)
[2025-09-16 05:00] VITALS: BP 157/67; PULSE 82; RESP 20; TEMP 35.8; O2SAT 93
[2025-09-16 06:38] LABS: Hematocrit 48.7 % (42.0-52.0); Hemoglobin 14.6 g/dL (14.0-18.0); Mean Corpuscular HGB Conc 30.0 g/dl (32-36); Mean Corpuscular Hemoglobin 28.3 pg (26-34); Mean Corpuscular Volume 94.6 fl (80-100); Platelet Count Result 210 k/mm3 (150-375); Red Blood Count 5.15 M/mm3 (4.6-6.20); White Blood Count 9.7 K/mm3 (4.5-10.0)
[2025-09-16 07:04] LABS: Alanine Aminotransferase 16 U/L (6-50); Albumin Level 3.0 g/dL (3.5-5.1); Alkaline Phosphatase 215 U/L (38-126); Anion Gap 1 mmol/L (4-12); Aspartate Amino Transferase 48 U/L (17-59); Bilirubin,Total 0.9 mg/dL (0.2-1.3); Blood Urea Nitrogen 19 mg/dL (9-20); Calcium 7.9 mg/dL (8.4-10.2); Carbon Dioxide 37 mmol/L (22-30); Chloride 99 mmol/L (98-107); Estimated CRCL calculation 120 ml/min; Estimated Glomerular Filt Rate > 60; Glucose 113 mg/dL (65-110); Potassium 4.0 mmol/L (3.4-5.0); Sodium 137 mmol/L (137-145); Total Protein 6.5 g/dL (6.3-8.2)
[2025-09-16] MEDS: PANTOPRAZOLE SODIUM IV 40 MG VIAL IV PUSH ×2 (09:18→17:27)
[2025-09-16] MEDS: ENOXAPARIN 40 MG/0.4 ML SYRINGE SUB-Q (09:18)
[2025-09-16 09:20] VITALS: O2SAT 93
--- NOTE | 2025-09-16 11:02 | PCNFU ---
Nutrition Follow-Up Complete: Inadequate energy intake related to NPO status as evidenced by current diet orders diet order, PO Intake with tolerance - Goal is met. Advanced to regular diet. Goal: Intakes >50% Pt current nutrition is Regular diet, Ensure Plus HP BID (350 kcal, 20 g protein). Nutrition recommendation: No new recommendations. Continue current nutrition care plan and orders. Agree with orders Last recorded weight is 157.9 kg. Bowel Motility: +1 BM 09/16 Labs Reviewed: Alb 3.0, Glu 113 Meds Noted: Zofran, protonix Skin: No skin issues Additional Notes: Pt doing well post-op from lap ashok with abscess drain and liver biopsy 09/13. Advanced to regular diet and able to eat. Able to monitor every 5 days. Agree with current orders. Monitor for diet orders, intake, tolerance, wt, labs. Follow up in 5 days.
--- NOTE | 2025-09-16 11:49 | P.PNGS_ITS ---
Progress Note: A&P Assessment and Plan (1) Acute calculous cholecystitis: Code(s): K80.00 - Calculus of gallbladder with acute cholecystitis without obstruction Status: Acute Assessment and Plan: * POD3 following laparoscopic subtotal cholecystectomy, drainage of intra- abdominal abscess, wedge liver biopsy. Clinically improving, WBC normalized, tolerating a diet and bowels are moving. * Continue to monitor HAYDEE drain output. * Continue IV Zosyn. (2) SIRS (systemic inflammatory response syndrome): Code(s): R65.10 - Systemic inflammatory response syndrome (SIRS) of non-infectious origin without acute organ dysfunction Status: Acute Assessment and Plan: * Secondary to perforated acute calculous cholecystitis with abscess. Resolving s/p source control. Blood cx pending. * Continue IV antibiotics * Tachycardia has resolved, but he is still short of breath with activity and requiring oxygen. Discussed with the Hospitalist today to consider CTA chest. (3) Abnormal CT of the abdomen: Code(s): R93.5 - Abnormal findings on diagnostic imaging of other abdominal regions, including retroperitoneum Status: Acute Assessment and Plan: * Laparoscopic wedge liver biopsy during surgery. (4) Lymphedema: Code(s): I89.0 - Lymphedema, not elsewhere classified Status: Acute Assessment and Plan: * Continue wraps/compression and elevation Plan I have discussed the patient's case, recommendations, and treatment plan with Dr. Brady. Subjective Subjective Date/Time Seen: 09/16/25 11:49 Post Op day: 3 (laparoscopic subtotal cholecystectomy, drainage of intra- abdominal abscess, wedge liver biopsy) Patient reports: pain is less (abdominal pain continues to improve), tolerating a regular diet (no nausea or vomiting) and afebrile Interval history: Still has some RUQ pain but continues to slowly improve. He reports having discomfort from pulling on the HAYDEE drain when getting up. He is passing flatus and had a large BM today. His main complaint today is his SOB. He still feels very SOB with activity and getting up to the commode. He has not been walking d/t his dyspnea. He reports feeling like its even hard to breathe when lying in bed. He feels this has been unchanged since admission and without much improvement, although his O2 requirements have gone down to 2.5 L since yesterday. No cough, no congestion, no calf pain, no other complaints. Review of Systems Review of Systems: All systems reviewed & are unremarkable except as noted in HPI and below Exam Const: General: no acute distress and obese Nutritional Appearance: obese Orientation/consciousness: patient oriented x3 Resp: Effort & Inspection: labored (after getting up to the commode) and tachypneic Auscultation: diminished lung sounds Cardio: Rate: regular rate Rhythm: regular rhythm GI: Inspection: non-distended, incision (dry and glue intact), Pannus present and obesity GI Palp: Yes Soft to palpation, Yes Tenderness to palpation present (GI) (RUQ), No Guarding due to palpation present (GI) and No Rebound tenderness present Auscultation: normal bowel sounds Other: HAYDEE Drain with cloudy light brown drainage Extrem: General: no calf tenderness and other (bilateral lymphedema noted) Objective Data Vital Signs Vital Signs: Vital Signs - 24 hr 09/15/25 14:00 09/15/25 20:00 09/15/25 21:15 Temperature 98.0 F 96.1 F L Pulse Rate 89 89 79 Respiratory Rate 20 20 18 Blood Pressure 140/69 144/68 H Pulse Oximetry 95 95 95 Oxygen Delivery Nasal Cannula Oxygen Flow Rate 2 Fraction of Inspired Oxygen 36 09/15/25 23:33 09/15/25 23:33 09/16/25 05:00 Temperature 96.5 F L Pulse Rate 73 73 82 Respiratory Rate 20 20 20 Blood Pressure 157/67 H Pulse Oximetry 92 93 Oxygen Delivery Room Air Oxygen Flow Rate Fraction of Inspired Oxygen 21 Intake/Output Intake/Output: Intake & Output 09/13/25 09/14/25 09/15/25 09/16/25 23:59 23:59 23:59 23:59 Intake Total 3085.4 2230 2118 1000 Output Total 2790 1210 1920 400 Balance 295.4 1020 198 600 Meds/Results Medications: Active Medications Generic Name Dose Route Start Last Admin Trade Name Freq PRN Reason Stop Dose Admin Hydrocodone Bitart/Acetaminophen 1 tab 09/13/25 18:34 09/15/25 22:12 Hydrocodone/Acetaminophen (*Crx) 5-325 Mg Tablet PO 1 tab Q4H PRN Administration Pain Rated 4-6 Hydrocodone Bitart/Acetaminophen 1 tab 09/13/25 18:34 Hydrocodone/Acetaminophen (*Crx) 10-325 Mg Tablet PO Q4H PRN Pain Rated 7-10 Albuterol/Ipratropium 3 ml 09/15/25 04:05 09/15/25 23:32 Ipratropium 0.5 Mg/Albuterol Sulfate 2.5 Mg (Base) Ampul.Neb 3 Ml INHALATION 3 ml Q6HRT PRN Administration Shortness Of Breath Enoxaparin Sodium 40 mg 09/13/25 09:00 09/16/25 09:18 Enoxaparin 40 Mg/0.4 Ml Syringe SUB-Q 40 mg DAILY MACK Administration Ibuprofen 800 mg in 200 mls @ 400 mls/hr 09/13/25 18:34 Caldolor 800 Mg/200 Ml IVPB Q6H PRN Breakthrough Pain Rated 1-3 or NPO Piperacillin Sod/Tazobactam 50 mls @ 100 mls/hr 09/13/25 20:00 09/16/25 09:18 Sod 3.375 gm/ Sodium Chloride IVPB 100 mls/hr Q6H MACK Administration Morphine Sulfate 2 mg 09/13/25 18:34 09/13/25 20:18 Morphine Sulfate (*Crx) 4 Mg/Ml Inj IV PUSH 2 mg Q2H PRN Administration Breakthrough Pain Rated 4-6 or NPO Morphine Sulfate 4 mg 09/13/25 18:34 09/14/25 06:33 Morphine Sulfate (*Crx) 4 Mg/Ml Inj IV PUSH 4 mg Q2H PRN Administration Breakthrough Pain Rated 7-10 or NPO Naloxone HCl 0.1 mg 09/13/25 18:34 Naloxone Hcl 0.4 Mg/Ml Vial IV PUSH Q2M PRN Opiate Reversal Ondansetron HCl 4 mg 09/12/25 09:08 Ondansetron Inj 4 Mg/2 Ml Vial IV PUSH Q4H PRN Nausea Pantoprazole Sodium 40 mg 09/13/25 20:00 09/16/25 09:18 Pantoprazole Sodium Iv 40 Mg Vial IV PUSH 40 mg BID MACK Administration Radiology Results: ITS Impressions Chest/Abdomen/Pelvis CT 09/12/25 08:10 IMPRESSION: CHEST- 1. No acute abnormality, other than bibasilar atelectasis. ABDOMEN/PELVIS- 1. Gastric ulcer and/or gastritis. Possibility of microperforation given organized perihepatic ascites and/or fluid collection or abscess. 2. Gallstone with nonspecific gallbladder wall thickening. If concern for cholecystitis, consider ultrasound and/or HIDA scan. Chest X-Ray 09/12/25 08:33 IMPRESSION: 1. No acute cardiopulmonary findings. Abdomen Ultrasound 09/12/25 09:33 IMPRESSION: 1. Consistent with acute cholecystitis. Upper GI Series 09/13/25 09:19 IMPRESSION: 1. Exam limited as above. No large ulceration, perforation or extravasation of contrast 2. Tertiary contractions in the esophagus suggest mild esophagitis; small hiatal hernia also noted. 3. Recommend follow-up KUB in 4 to 6 hours to evaluate enteric transit of contrast. Labs Labs: Laboratory Results - last 24 hr 09/15/25 09/16/25 09/16/25 21:19 05:57 07:52 WBC 9.7 RBC 5.15 Hgb 14.6 Hct 48.7 MCV 94.6 MCH 28.3 MCHC 30.0 L RDW 14.1 Plt Count 210 MPV 9.2 Sodium 137 Potassium 4.0 Chloride 99 Carbon Dioxide 37 H Anion Gap 1 L BUN 19 Creatinine 0.85 Estim Creat Clear Calc 120 Estimated GFR > 60 Glucose 113 H POC Capillary Glucose 105 137 H Calcium 7.9 L Total Bilirubin 0.9 AST 48 ALT 16 Alkaline Phosphatase 215 H Total Protein 6.5 Albumin 3.0 L
--- NOTE | 2025-09-16 12:35 | P.PNIM_ITS ---
Assessment and Plan Assessment and Plan (1) Sepsis: Code(s): A41.9 - Sepsis, unspecified organism Status: Resolved Plan Sepsis From acute cholecystitis and gastric ulcer with possible perforation Tachycardia, tachypnea resolving. EBC 20.[address] showed gastric ulcer with possible perforation Liver Us showed acute cholecystitis Underwent 09/13 Laparoscopic subtotal cholecystectomy,Laparoscopic drainage of intra-abdominal abscess, and Laparoscopic wedge liver biopsy Blood culture pending Continue Zosyn and PPI IV, IVF Gen surgery and GI consulted Gastric ulcer with possible perforation CT AP reviewed GI reviewed and noted that CT finding is incidental and recommended outpatient follow after management for Acute cholecystitis GI eval noted Acute cholecystitis US liver reviewed Continue Zosyn and IVF S/P Laparoscopic subtotal cholecystectomy,Laparoscopic drainage of intra- abdominal abscess, and Laparoscopic wedge liver biopsy Gen surgery consulted Increased work of breathing Chest x-ray shows CHF Echocardiogram performed 2022 shows ejection fraction 60-65% but evidence of diastolic dysfunction Repeated echocardiogram and BNP Currently on 3 L saturating around 93% Lymphedema with venous ulcer Continue compression therapy Wound care following DVT prophylaxis on Sq Lovenox Full code SDM: Zulma Leigh Subjective Date/time seen: 09/16/25 12:35 Interval history: Surgery team was concerned about work of breathing. Patient is currently on 2 L and saturating around 93%. Chest x-ray shows signs of CHF. His echocardiogram performed 2022 shows ejection fraction 60-65%. Left ventricular diastolic function is abnormal. Will repeat echo and ordered BNP. Ordered a CTA to rule out PE. Review of Systems Review of Systems: All other systems were reviewed and negative except as noted in the HPI above Exam Narrative: General: alert and comfortable Eyes: EOMI, PERRLA ENNT External ears normal, Neck is supple, no masses, Respiratory systems: Clear to auscultation Cardiovascular S1, S2, normal rhythm, no murmur, rub, or gallop; no thrill or palpable murmurs on palpation. Gastrointestinal: soft, diffuse abd tenderness , and non-distended abdomen with no masses; BS present Skin: non pitting leg edema, with venous ulcer Musculoskeletal: no abnormality and no tenderness, normal ROM Neurologic: Alert and oriented x3, non focal Mental Status Exam: normal affect Objective Data Vital Signs Vital Signs: Vital Signs - 24 hr 09/15/25 14:00 09/15/25 20:00 09/15/25 21:15 Temperature 98.0 F 96.1 F L Pulse Rate 89 89 79 Respiratory Rate 20 20 18 Blood Pressure 140/69 144/68 H Pulse Oximetry 95 95 95 Oxygen Delivery Nasal Cannula Oxygen Flow Rate 2 Fraction of Inspired Oxygen 36 09/15/25 23:33 09/15/25 23:33 09/16/25 05:00 Temperature 96.5 F L Pulse Rate 73 73 82 Respiratory Rate 20 20 20 Blood Pressure 157/67 H Pulse Oximetry 92 93 Oxygen Delivery Room Air Oxygen Flow Rate Fraction of Inspired Oxygen 21 09/16/25 09:20 Temperature Pulse Rate Respiratory Rate Blood Pressure Pulse Oximetry 93 Oxygen Delivery Nasal Cannula Oxygen Flow Rate 2 Fraction of Inspired Oxygen Intake/Output Intake/Output: Intake & Output 09/13/25 09/14/25 09/15/25 09/16/25 23:59 23:59 23:59 23:59 Intake Total 3085.4 2230 2118 1000 Output Total 2790 1210 1920 400 Balance 295.4 1020 198 600 Meds/Results Medications: Active Medications Generic Name Dose Route Start Last Admin Trade Name Freq PRN Reason Stop Dose Admin Hydrocodone Bitart/Acetaminophen 1 tab 09/13/25 18:34 09/15/25 22:12 Hydrocodone/Acetaminophen (*Crx) 5-325 Mg Tablet PO 1 tab Q4H PRN Administration Pain Rated 4-6 Hydrocodone Bitart/Acetaminophen 1 tab 09/13/25 18:34 Hydrocodone/Acetaminophen (*Crx) 10-325 Mg Tablet PO Q4H PRN Pain Rated 7-10 Albuterol/Ipratropium 3 ml 09/15/25 04:05 09/15/25 23:32 Ipratropium 0.5 Mg/Albuterol Sulfate 2.5 Mg (Base) Ampul.Neb 3 Ml INHALATION 3 ml Q6HRT PRN Administration Shortness Of Breath Enoxaparin Sodium 40 mg 09/13/25 09:00 09/16/25 09:18 Enoxaparin 40 Mg/0.4 Ml Syringe SUB-Q 40 mg DAILY MACK Administration Ibuprofen 800 mg in 200 mls @ 400 mls/hr 09/13/25 18:34 Caldolor 800 Mg/200 Ml IVPB Q6H PRN Breakthrough Pain Rated 1-3 or NPO Piperacillin Sod/Tazobactam 50 mls @ 100 mls/hr 09/13/25 20:00 09/16/25 09:18 Sod 3.375 gm/ Sodium Chloride IVPB 100 mls/hr Q6H MACK Administration Morphine Sulfate 2 mg 09/13/25 18:34 09/13/25 20:18 Morphine Sulfate (*Crx) 4 Mg/Ml Inj IV PUSH 2 mg Q2H PRN Administration Breakthrough Pain Rated 4-6 or NPO Morphine Sulfate 4 mg 09/13/25 18:34 09/14/25 06:33 Morphine Sulfate (*Crx) 4 Mg/Ml Inj IV PUSH 4 mg Q2H PRN Administration Breakthrough Pain Rated 7-10 or NPO Naloxone HCl 0.1 mg 09/13/25 18:34 Naloxone Hcl 0.4 Mg/Ml Vial IV PUSH Q2M PRN Opiate Reversal Ondansetron HCl 4 mg 09/12/25 09:08 Ondansetron Inj 4 Mg/2 Ml Vial IV PUSH Q4H PRN Nausea Pantoprazole Sodium 40 mg 09/13/25 20:00 09/16/25 09:18 Pantoprazole Sodium Iv 40 Mg Vial IV PUSH 40 mg BID MACK Administration Radiology Results: ITS Impressions Chest/Abdomen/Pelvis CT 09/12/25 08:10 IMPRESSION: CHEST- 1. No acute abnormality, other than bibasilar atelectasis. ABDOMEN/PELVIS- 1. Gastric ulcer and/or gastritis. Possibility of microperforation given organized perihepatic ascites and/or fluid collection or abscess. 2. Gallstone with nonspecific gallbladder wall thickening. If concern for cholecystitis, consider ultrasound and/or HIDA scan. Abdomen Ultrasound 09/12/25 09:33 IMPRESSION: 1. Consistent with acute cholecystitis. Upper GI Series 09/13/25 09:19 IMPRESSION: 1. Exam limited as above. No large ulceration, perforation or extravasation of contrast 2. Tertiary contractions in the esophagus suggest mild esophagitis; small hiatal hernia also noted. 3. Recommend follow-up KUB in 4 to 6 hours to evaluate enteric transit of contrast. Chest X-Ray 09/16/25 12:25 Impression: CHF. Findings are progressed compared to the previous study Labs Labs: Laboratory Results - last 24 hr 09/15/25 09/16/25 09/16/25 21:19 05:57 07:52 WBC 9.7 RBC 5.15 Hgb 14.6 Hct 48.7 MCV 94.6 MCH 28.3 MCHC 30.0 L RDW 14.1 Plt Count 210 MPV 9.2 Sodium 137 Potassium 4.0 Chloride 99 Carbon Dioxide 37 H Anion Gap 1 L BUN 19 Creatinine 0.85 Estim Creat Clear Calc 120 Estimated GFR > 60 Glucose 113 H POC Capillary Glucose 105 137 H Calcium 7.9 L Total Bilirubin 0.9 AST 48 ALT 16 Alkaline Phosphatase 215 H Total Protein 6.5 Albumin 3.0 L Hospitalist MIPS Advance Care Plan I have confirmed that the patient's Advanced Care Plan is present, code status is documented, or surrogate decision maker is listed in patient medical record.: Yes Medication Reconciliation I have utilized all available resources to obtain, update and review the patients current medications (includes all prescriptions, OTC, herbals, cannabis, and nutritional supplements).: Yes
[2025-09-16 13:41] LABS: NT Pro B Type Natriuretic Pept 432 pg/mL (19.9-100)
[2025-09-16 14:00] VITALS: BP 180/80; PULSE 80; RESP 20; TEMP 36.2; O2SAT 96
[2025-09-16] MEDS: HYDROcodone/acetaminophen (*CRX) 5-325 MG TABLET 1 TAB PO ×2 (14:03→21:26)
[2025-09-16] MEDS: PERFLUTREN LIPID MICROSPHERES 1.5 ML VIAL DILUTED TO 10 ML TOTAL VOLUME IV PUSH (17:00)
--- NOTE | 2025-09-16 17:00 | IVDEFINITY ---
Prior to administration of IV Definity the patient was educated on the risks and benefits of the imaging enhancing agent including potential adverse side effects. The patient verbalized understanding. Allergies were verified. No exclusion criteria were identified and at least one of the following inclusion criteria were met: 1) physician request, 2) patient technically difficult to image (per the [place] [employer] guidelines of two or more segments not discernable within the apical view), or 3) questionable left ventricular function. ?
[2025-09-16] MEDS: FUROSEMIDE INJ 40 MG/4 ML VIAL IV PUSH (17:27)
[2025-09-16 20:00] VITALS: PULSE 96; RESP 18; O2SAT 99
[2025-09-16 21:54] VITALS: BP 167/78; PULSE 96; RESP 18; TEMP 36.6; O2SAT 99
[2025-09-17] MEDS: PIPERACILLIN/TAZOBACTAM SOD 3.375 GM in SODIUM CHLORIDE 0.9% IV 50 ML 100 ML IVPB ×4 (01:22→20:58)
[2025-09-17 05:48] VITALS: BP 150/79; PULSE 88; RESP 16; TEMP 36.7; O2SAT 96
[2025-09-17 06:32] LABS: Hematocrit 51.2 % (42.0-52.0); Hemoglobin 15.6 g/dL (14.0-18.0); Mean Corpuscular HGB Conc 30.5 g/dl (32-36); Mean Corpuscular Hemoglobin 28.7 pg (26-34); Mean Corpuscular Volume 94.1 fl (80-100); Platelet Count Result 239 k/mm3 (150-375); Red Blood Count 5.44 M/mm3 (4.6-6.20); White Blood Count 10.1 K/mm3 (4.5-10.0)
[2025-09-17 06:50] LABS: INR 1.1; Prothrombin Time 14.5 Seconds (11.1-14.7)
[2025-09-17 06:51] LABS: Partial Thromboplastin Time 28.0 Seconds (22.3-36.8)
[2025-09-17 06:53] LABS: Alanine Aminotransferase 15 U/L (6-50); Albumin Level 3.2 g/dL (3.5-5.1); Alkaline Phosphatase 226 U/L (38-126); Anion Gap 2 mmol/L (4-12); Aspartate Amino Transferase 38 U/L (17-59); Bilirubin,Total 1.3 mg/dL (0.2-1.3); Blood Urea Nitrogen 18 mg/dL (9-20); Calcium 8.0 mg/dL (8.4-10.2); Carbon Dioxide 39 mmol/L (22-30); Chloride 97 mmol/L (98-107); Estimated CRCL calculation 126 ml/min; Estimated Glomerular Filt Rate > 60; Glucose 119 mg/dL (65-110); Potassium 3.9 mmol/L (3.4-5.0); Sodium 138 mmol/L (137-145); Total Protein 6.8 g/dL (6.3-8.2)
[2025-09-17 07:00] LABS: NT Pro B Type Natriuretic Pept 205 pg/mL (19.9-100)
[2025-09-17] MEDS: PANTOPRAZOLE SODIUM IV 40 MG VIAL IV PUSH ×2 (09:16→16:44)
--- NOTE | 2025-09-17 11:25 | P.PNIM_ITS ---
Assessment and Plan Assessment and Plan (1) Sepsis: Code(s): A41.9 - Sepsis, unspecified organism Status: Resolved Plan Sepsis From acute cholecystitis and gastric ulcer with possible perforation Tachycardia, tachypnea resolving. EBC 20.[address] showed gastric ulcer with possible perforation Liver Us showed acute cholecystitis Underwent 09/13 Laparoscopic subtotal cholecystectomy,Laparoscopic drainage of intra-abdominal abscess, and Laparoscopic wedge liver biopsy Blood culture pending Continue Zosyn and PPI IV, IVF Gen surgery and GI consulted Underwent CT-guided drain placement on 09/17 Gastric ulcer with possible perforation CT AP reviewed GI reviewed and noted that CT finding is incidental and recommended outpatient follow after management for Acute cholecystitis GI eval noted Acute cholecystitis US liver reviewed Continue Zosyn and IVF S/P Laparoscopic subtotal cholecystectomy,Laparoscopic drainage of intra- abdominal abscess, and Laparoscopic wedge liver biopsy Gen surgery consulted Increased work of breathing Chest x-ray shows CHF Echocardiogram performed 2022 shows ejection fraction 60-65% but evidence of diastolic dysfunction Repeated echocardiogram shows no evidence of CHF and BNP 205 Currently on 3 L saturating around 93% Lymphedema with venous ulcer Continue compression therapy Wound care following DVT prophylaxis on Sq Lovenox Full code SDM: Zulma Leigh Subjective Date/time seen: 09/17/25 11:25 Interval history: 09/16:Surgery team was concerned about work of breathing. Patient is currently on 2 L and saturating around 93%. Chest x-ray shows signs of CHF. His echocardiogram performed 2022 shows ejection fraction 60-65%. Left ventricular diastolic function is abnormal. Will repeat echo and ordered BNP. Ordered a CTA to rule out PE. 09/17: Patient underwent CT-guided drain placement. Patient reports he feels lot better after the brain placement. CTA shows no evidence of pulmonary embolism. Small to moderate size bilateral pleural effusion with increased atelectatic changes and some air bronchograms which could be associated with developing pneumonia. No evidence of pulmonary hypertension. BNP 205. Left ventricular systolic function 50-60% and no evidence of diastolic dysfunction. Patient is currently on Zosyn. Review of Systems Review of Systems: All other systems were reviewed and negative except as noted in the HPI above Exam Narrative: General: alert and comfortable Eyes: EOMI, PERRLA ENNT External ears normal, Neck is supple, no masses, Respiratory systems: Clear to auscultation Cardiovascular S1, S2, normal rhythm, no murmur, rub, or gallop; no thrill or palpable murmurs on palpation. Gastrointestinal: soft, diffuse abd tenderness , and non-distended abdomen with no masses; BS present Skin: non pitting leg edema, with venous ulcer Musculoskeletal: no abnormality and no tenderness, normal ROM Neurologic: Alert and oriented x3, non focal Mental Status Exam: normal affect Objective Data Vital Signs Vital Signs: Vital Signs - 24 hr 09/16/25 14:00 09/16/25 20:00 09/16/25 21:54 Temperature 97.1 F L 97.8 F Pulse Rate 80 96 96 Respiratory Rate 20 18 18 Blood Pressure 180/80 H 167/78 H Pulse Oximetry 96 99 99 Oxygen Delivery Nasal Cannula Oxygen Flow Rate 2 Fraction of Inspired Oxygen 21 09/17/25 05:48 Temperature 98.1 F Pulse Rate 88 Respiratory Rate 16 Blood Pressure 150/79 H Pulse Oximetry 96 Oxygen Delivery Oxygen Flow Rate Fraction of Inspired Oxygen Intake/Output Intake/Output: Intake & Output 09/14/25 09/15/25 09/16/25 09/17/25 23:59 23:59 23:59 23:59 Intake Total 2230 2118 1700 500 Output Total 1210 1920 1400 1400 Balance 1020 198 300 -900 Meds/Results Medications: Active Medications Generic Name Dose Route Start Last Admin Trade Name Freq PRN Reason Stop Dose Admin Hydrocodone Bitart/Acetaminophen 1 tab 09/13/25 18:34 09/16/25 21:26 Hydrocodone/Acetaminophen (*Crx) 5-325 Mg Tablet PO 1 tab Q4H PRN Administration Pain Rated 4-6 Hydrocodone Bitart/Acetaminophen 1 tab 09/13/25 18:34 Hydrocodone/Acetaminophen (*Crx) 10-325 Mg Tablet PO Q4H PRN Pain Rated 7-10 Albuterol/Ipratropium 3 ml 09/15/25 04:05 09/15/25 23:32 Ipratropium 0.5 Mg/Albuterol Sulfate 2.5 Mg (Base) Ampul.Neb 3 Ml INHALATION 3 ml Q6HRT PRN Administration Shortness Of Breath Enoxaparin Sodium 40 mg 09/13/25 09:00 09/16/25 09:18 Enoxaparin 40 Mg/0.4 Ml Syringe SUB-Q 40 mg On Hold: 09/16/25 17:17 DAILY MACK Administration Ibuprofen 800 mg in 200 mls @ 400 mls/hr 09/13/25 18:34 Caldolor 800 Mg/200 Ml IVPB Q6H PRN Breakthrough Pain Rated 1-3 or NPO Piperacillin Sod/Tazobactam 50 mls @ 100 mls/hr 09/13/25 20:00 09/17/25 09:46 Sod 3.375 gm/ Sodium Chloride IVPB Infused Q6H MACK Infusion Morphine Sulfate 2 mg 09/13/25 18:34 09/13/25 20:18 Morphine Sulfate (*Crx) 4 Mg/Ml Inj IV PUSH 2 mg Q2H PRN Administration Breakthrough Pain Rated 4-6 or NPO Morphine Sulfate 4 mg 09/13/25 18:34 09/14/25 06:33 Morphine Sulfate (*Crx) 4 Mg/Ml Inj IV PUSH 4 mg Q2H PRN Administration Breakthrough Pain Rated 7-10 or NPO Naloxone HCl 0.1 mg 09/13/25 18:34 Naloxone Hcl 0.4 Mg/Ml Vial IV PUSH Q2M PRN Opiate Reversal Ondansetron HCl 4 mg 09/12/25 09:08 Ondansetron Inj 4 Mg/2 Ml Vial IV PUSH Q4H PRN Nausea Pantoprazole Sodium 40 mg 09/13/25 20:00 09/17/25 09:16 Pantoprazole Sodium Iv 40 Mg Vial IV PUSH 40 mg BID MACK Administration Radiology Results: ITS Impressions Chest/Abdomen/Pelvis CT 09/12/25 08:10 IMPRESSION: CHEST- 1. No acute abnormality, other than bibasilar atelectasis. ABDOMEN/PELVIS- 1. Gastric ulcer and/or gastritis. Possibility of microperforation given organized perihepatic ascites and/or fluid collection or abscess. 2. Gallstone with nonspecific gallbladder wall thickening. If concern for cholecystitis, consider ultrasound and/or HIDA scan. Abdomen Ultrasound 09/12/25 09:33 IMPRESSION: 1. Consistent with acute cholecystitis. Upper GI Series 09/13/25 09:19 IMPRESSION: 1. Exam limited as above. No large ulceration, perforation or extravasation of contrast 2. Tertiary contractions in the esophagus suggest mild esophagitis; small hiatal hernia also noted. 3. Recommend follow-up KUB in 4 to 6 hours to evaluate enteric transit of contrast. Chest X-Ray 09/16/25 12:25 Impression: CHF. Findings are progressed compared to the previous study Chest CTA 09/16/25 14:24 IMPRESSION: 1. No pulmonary emboli or thoracic aortic aneurysm/dissection. 2. Small to moderate sized bilateral pleural effusions with increased atelectatic changes and some air bronchograms which could be associated with developing pneumonia. 3. Prominent pulmonary arteries suggesting pulmonary arterial hypertension. Labs Labs: Laboratory Results - last 24 hr 09/16/25 09/16/25 09/16/25 05:57 11:20 16:58 WBC RBC Hgb Hct MCV MCH MCHC RDW Plt Count MPV PT INR APTT Sodium Potassium Chloride Carbon Dioxide Anion Gap BUN Creatinine Estim Creat Clear Calc Estimated GFR Glucose POC Capillary Glucose 107 H 124 H Calcium Total Bilirubin AST ALT Alkaline Phosphatase NT-Pro-B Natriuret Pep 432 H Total Protein Albumin 09/17/25 05:36 WBC 10.1 H RBC 5.44 Hgb 15.6 Hct 51.2 MCV 94.1 MCH 28.7 MCHC 30.5 L RDW 14.1 Plt Count 239 MPV 9.1 PT 14.5 INR 1.1 APTT 28.0 Sodium 138 Potassium 3.9 Chloride 97 L Carbon Dioxide 39 H Anion Gap 2 L BUN 18 Creatinine 0.79 Estim Creat Clear Calc 126 Estimated GFR > 60 Glucose 119 H POC Capillary Glucose Calcium 8.0 L Total Bilirubin 1.3 AST 38 ALT 15 Alkaline Phosphatase 226 H NT-Pro-B Natriuret Pep 205 H Total Protein 6.8 Albumin 3.2 L Hospitalist MIPS Advance Care Plan I have confirmed that the patient's Advanced Care Plan is present, code status is documented, or surrogate decision maker is listed in patient medical record.: Yes Medication Reconciliation I have utilized all available resources to obtain, update and review the patients current medications (includes all prescriptions, OTC, herbals, cannabis, and nutritional supplements).: Yes
--- NOTE | 2025-09-17 11:27 | PM.PNGS ---
Progress Note: A&P Assessment and Plan (1) Acute calculous cholecystitis: Code(s): K80.00 - Calculus of gallbladder with acute cholecystitis without obstruction Status: Acute Assessment and Plan: CT Chest for PE protocol yesterday showed a persistent abscess anterior to the left lobe of the liver. The drain does not appear to be draining this area. Will have CT guided drain placement done today. Continue current antibiotics. Will monitor drains over next couple days, but anticipate patient remaining in hospital until pulmonary function better and abscesses have resolved. (2) Intra-abdominal abscess: Code(s): K65.1 - Peritoneal abscess Status: Acute (3) Lymphedema: Code(s): I89.0 - Lymphedema, not elsewhere classified Status: Acute Assessment and Plan: Continue wraps/compression and elevation Subjective Subjective Date/Time Seen: 09/17/25 11:27 Interval history: Patient continues to slowly improve. No fevers. Pain improving. tolerating diet. Exam GI: Inspection: incision (intact with glue) and other (HAYDEE minimal serous, no signs of bilious or purulent drainage) GI Palp: Yes Tenderness to palpation present (GI) (mild epigastric) Objective Data Vital Signs Vital Signs: Vital Signs - 24 hr 09/16/25 14:00 09/16/25 20:00 09/16/25 21:54 Temperature 97.1 F L 97.8 F Pulse Rate 80 96 96 Respiratory Rate 20 18 18 Blood Pressure 180/80 H 167/78 H Pulse Oximetry 96 99 99 Oxygen Delivery Nasal Cannula Oxygen Flow Rate 2 Fraction of Inspired Oxygen 21 09/17/25 05:48 Temperature 98.1 F Pulse Rate 88 Respiratory Rate 16 Blood Pressure 150/79 H Pulse Oximetry 96 Oxygen Delivery Oxygen Flow Rate Fraction of Inspired Oxygen Intake/Output Intake/Output: Intake & Output 09/14/25 09/15/25 09/16/25 09/17/25 23:59 23:59 23:59 23:59 Intake Total 2230 2118 1700 500 Output Total 1210 1920 1400 1400 Balance 1020 198 300 -900 Meds/Results Medications: Active Medications Generic Name Dose Route Start Last Admin Trade Name Freq PRN Reason Stop Dose Admin Hydrocodone Bitart/Acetaminophen 1 tab 09/13/25 18:34 09/16/25 21:26 Hydrocodone/Acetaminophen (*Crx) 5-325 Mg Tablet PO 1 tab Q4H PRN Administration Pain Rated 4-6 Hydrocodone Bitart/Acetaminophen 1 tab 09/13/25 18:34 Hydrocodone/Acetaminophen (*Crx) 10-325 Mg Tablet PO Q4H PRN Pain Rated 7-10 Albuterol/Ipratropium 3 ml 09/15/25 04:05 09/15/25 23:32 Ipratropium 0.5 Mg/Albuterol Sulfate 2.5 Mg (Base) Ampul.Neb 3 Ml INHALATION 3 ml Q6HRT PRN Administration Shortness Of Breath Enoxaparin Sodium 40 mg 09/13/25 09:00 09/16/25 09:18 Enoxaparin 40 Mg/0.4 Ml Syringe SUB-Q 40 mg On Hold: 09/16/25 17:17 DAILY MACK Administration Ibuprofen 800 mg in 200 mls @ 400 mls/hr 09/13/25 18:34 Caldolor 800 Mg/200 Ml IVPB Q6H PRN Breakthrough Pain Rated 1-3 or NPO Piperacillin Sod/Tazobactam 50 mls @ 100 mls/hr 09/13/25 20:00 09/17/25 09:46 Sod 3.375 gm/ Sodium Chloride IVPB Infused Q6H MACK Infusion Morphine Sulfate 2 mg 09/13/25 18:34 09/13/25 20:18 Morphine Sulfate (*Crx) 4 Mg/Ml Inj IV PUSH 2 mg Q2H PRN Administration Breakthrough Pain Rated 4-6 or NPO Morphine Sulfate 4 mg 09/13/25 18:34 09/14/25 06:33 Morphine Sulfate (*Crx) 4 Mg/Ml Inj IV PUSH 4 mg Q2H PRN Administration Breakthrough Pain Rated 7-10 or NPO Naloxone HCl 0.1 mg 09/13/25 18:34 Naloxone Hcl 0.4 Mg/Ml Vial IV PUSH Q2M PRN Opiate Reversal Ondansetron HCl 4 mg 09/12/25 09:08 Ondansetron Inj 4 Mg/2 Ml Vial IV PUSH Q4H PRN Nausea Pantoprazole Sodium 40 mg 09/13/25 20:00 09/17/25 09:16 Pantoprazole Sodium Iv 40 Mg Vial IV PUSH 40 mg BID MACK Administration Radiology Results: ITS Impressions Chest/Abdomen/Pelvis CT 09/12/25 08:10 IMPRESSION: CHEST- 1. No acute abnormality, other than bibasilar atelectasis. ABDOMEN/PELVIS- 1. Gastric ulcer and/or gastritis. Possibility of microperforation given organized perihepatic ascites and/or fluid collection or abscess. 2. Gallstone with nonspecific gallbladder wall thickening. If concern for cholecystitis, consider ultrasound and/or HIDA scan. Abdomen Ultrasound 09/12/25 09:33 IMPRESSION: 1. Consistent with acute cholecystitis. Upper GI Series 09/13/25 09:19 IMPRESSION: 1. Exam limited as above. No large ulceration, perforation or extravasation of contrast 2. Tertiary contractions in the esophagus suggest mild esophagitis; small hiatal hernia also noted. 3. Recommend follow-up KUB in 4 to 6 hours to evaluate enteric transit of contrast. Chest X-Ray 09/16/25 12:25 Impression: CHF. Findings are progressed compared to the previous study Chest CTA 09/16/25 14:24 IMPRESSION: 1. No pulmonary emboli or thoracic aortic aneurysm/dissection. 2. Small to moderate sized bilateral pleural effusions with increased atelectatic changes and some air bronchograms which could be associated with developing pneumonia. 3. Prominent pulmonary arteries suggesting pulmonary arterial hypertension. Labs Labs: Laboratory Results - last 24 hr 09/16/25 09/16/25 09/16/25 05:57 11:20 16:58 WBC RBC Hgb Hct MCV MCH MCHC RDW Plt Count MPV PT INR APTT Sodium Potassium Chloride Carbon Dioxide Anion Gap BUN Creatinine Estim Creat Clear Calc Estimated GFR Glucose POC Capillary Glucose 107 H 124 H Calcium Total Bilirubin AST ALT Alkaline Phosphatase NT-Pro-B Natriuret Pep 432 H Total Protein Albumin 09/17/25 05:36 WBC 10.1 H RBC 5.44 Hgb 15.6 Hct 51.2 MCV 94.1 MCH 28.7 MCHC 30.5 L RDW 14.1 Plt Count 239 MPV 9.1 PT 14.5 INR 1.1 APTT 28.0 Sodium 138 Potassium 3.9 Chloride 97 L Carbon Dioxide 39 H Anion Gap 2 L BUN 18 Creatinine 0.79 Estim Creat Clear Calc 126 Estimated GFR > 60 Glucose 119 H POC Capillary Glucose Calcium 8.0 L Total Bilirubin 1.3 AST 38 ALT 15 Alkaline Phosphatase 226 H NT-Pro-B Natriuret Pep 205 H Total Protein 6.8 Albumin 3.2 L
--- NOTE | 2025-09-17 13:10 | PC.NURSE ---
Patient returned from CT where he had a drain placed mid epigastric of his abdomen for a perihepatic abscess. It is draining yellow fluid. Patient denies pain at this time. site is covered with gauze and tape .
[2025-09-17 14:00] VITALS: BP 141/73; PULSE 80; RESP 18; TEMP 36.4; O2SAT 91
[2025-09-17 20:58] VITALS: O2SAT 91
[2025-09-17 21:48] VITALS: BP 158/57; PULSE 88; RESP 16; TEMP 36.2; O2SAT 94
[2025-09-18] MEDS: PIPERACILLIN/TAZOBACTAM SOD 3.375 GM in SODIUM CHLORIDE 0.9% IV 50 ML 100 ML IVPB ×4 (01:06→20:40)
[2025-09-18 05:39] LABS: Hematocrit 49.6 % (42.0-52.0); Hemoglobin 15.1 g/dL (14.0-18.0); Mean Corpuscular HGB Conc 30.4 g/dl (32-36); Mean Corpuscular Hemoglobin 28.5 pg (26-34); Mean Corpuscular Volume 93.6 fl (80-100); Platelet Count Result 256 k/mm3 (150-375); Red Blood Count 5.30 M/mm3 (4.6-6.20); White Blood Count 12.3 K/mm3 (4.5-10.0)
[2025-09-18 06:00] VITALS: BP 144/72; PULSE 83; RESP 16; TEMP 36.6; O2SAT 96
[2025-09-18 06:03] LABS: Alanine Aminotransferase 13 U/L (6-50); Albumin Level 3.1 g/dL (3.5-5.1); Alkaline Phosphatase 223 U/L (38-126); Aspartate Amino Transferase 30 U/L (17-59); Bilirubin,Total 1.1 mg/dL (0.2-1.3); Blood Urea Nitrogen 17 mg/dL (9-20); Calcium 7.9 mg/dL (8.4-10.2); Chloride 94 mmol/L (98-107); Estimated CRCL calculation 111 ml/min; Estimated Glomerular Filt Rate > 60; Glucose 125 mg/dL (65-110); Potassium 3.8 mmol/L (3.4-5.0); Sodium 136 mmol/L (137-145); Total Protein 6.8 g/dL (6.3-8.2)
[2025-09-18 06:15] LABS: Carbon Dioxide > 40 mmol/L (22-30)
[2025-09-18 08:00] VITALS: PULSE 83; RESP 16; O2SAT 96
[2025-09-18] MEDS: PANTOPRAZOLE SODIUM IV 40 MG VIAL IV PUSH ×2 (09:01→16:47)
--- NOTE | 2025-09-18 10:36 | P.PNGS_ITS ---
Progress Note: A&P Assessment and Plan (1) Intra-abdominal abscess: Code(s): K65.1 - Peritoneal abscess Status: Acute Assessment and Plan: exam improved, continue drains and antibiotics, encouraged out of bed and incentive spirometer Subjective Subjective Date/Time Seen: 09/18/25 10:36 Interval history: feels better after drain placed yesterday, reports less pressure and upper abdomen Review of Systems 2 Review of Systems: All systems reviewed & are unremarkable except as noted in HPI and below Exam Const: General: cooperative, comfortable, no acute distress and obese Resp: Auscultation: diminished lung sounds Cardio: Rate: regular rate Rhythm: regular rhythm GI: Inspection: normal to inspection, non-distended and incision GI Palp: Yes abdominal tenderness, Yes Soft to palpation, No Guarding due to palpation present (GI) and No Rigid due to palpation Other: HAYDEE drain with minimal serosanguineous fluid, percutaneous drain with moderate serous drainage Objective Data Vital Signs Vital Signs: Vital Signs - 24 hr 09/17/25 14:00 09/17/25 20:58 09/17/25 21:48 Temperature 36.4 C 36.2 C L Pulse Rate 80 88 Respiratory Rate 18 16 Blood Pressure 141/73 H 158/57 H Pulse Oximetry 91 91 94 Oxygen Delivery Nasal Cannula Oxygen Flow Rate 2 Fraction of Inspired Oxygen 09/18/25 06:00 09/18/25 08:00 Temperature 36.6 C Pulse Rate 83 83 Respiratory Rate 16 16 Blood Pressure 144/72 H Pulse Oximetry 96 96 Oxygen Delivery Nasal Cannula Oxygen Flow Rate 2 Fraction of Inspired Oxygen 21 Intake/Output Intake/Output: Intake & Output 09/15/25 09/16/25 09/17/25 09/18/25 23:59 23:59 23:59 23:59 Intake Total 2118 1700 926.7 540 Output Total 1920 1400 1400 530 Balance 198 300 -473.3 10 Meds/Results Medications: Active Medications Generic Name Dose Route Start Last Admin Trade Name Freq PRN Reason Stop Dose Admin Hydrocodone Bitart/Acetaminophen 1 tab 09/13/25 18:34 09/16/25 21:26 Hydrocodone/Acetaminophen (*Crx) 5-325 Mg Tablet PO 1 tab Q4H PRN Administration Pain Rated 4-6 Hydrocodone Bitart/Acetaminophen 1 tab 09/13/25 18:34 Hydrocodone/Acetaminophen (*Crx) 10-325 Mg Tablet PO Q4H PRN Pain Rated 7-10 Albuterol/Ipratropium 3 ml 09/15/25 04:05 09/15/25 23:32 Ipratropium 0.5 Mg/Albuterol Sulfate 2.5 Mg (Base) Ampul.Neb 3 Ml INHALATION 3 ml Q6HRT PRN Administration Shortness Of Breath Enoxaparin Sodium 40 mg 09/13/25 09:00 09/16/25 09:18 Enoxaparin 40 Mg/0.4 Ml Syringe SUB-Q 40 mg On Hold: 09/16/25 17:17 DAILY MACK Administration Ibuprofen 800 mg in 200 mls @ 400 mls/hr 09/13/25 18:34 Caldolor 800 Mg/200 Ml IVPB Q6H PRN Breakthrough Pain Rated 1-3 or NPO Piperacillin Sod/Tazobactam 50 mls @ 100 mls/hr 09/13/25 20:00 09/18/25 09:31 Sod 3.375 gm/ Sodium Chloride IVPB Infused Q6H MACK Infusion Morphine Sulfate 2 mg 09/13/25 18:34 09/13/25 20:18 Morphine Sulfate (*Crx) 4 Mg/Ml Inj IV PUSH 2 mg Q2H PRN Administration Breakthrough Pain Rated 4-6 or NPO Morphine Sulfate 4 mg 09/13/25 18:34 09/14/25 06:33 Morphine Sulfate (*Crx) 4 Mg/Ml Inj IV PUSH 4 mg Q2H PRN Administration Breakthrough Pain Rated 7-10 or NPO Naloxone HCl 0.1 mg 09/13/25 18:34 Naloxone Hcl 0.4 Mg/Ml Vial IV PUSH Q2M PRN Opiate Reversal Ondansetron HCl 4 mg 09/12/25 09:08 Ondansetron Inj 4 Mg/2 Ml Vial IV PUSH Q4H PRN Nausea Pantoprazole Sodium 40 mg 09/13/25 20:00 09/18/25 09:01 Pantoprazole Sodium Iv 40 Mg Vial IV PUSH 40 mg BID MACK Administration Radiology Results: ITS Impressions Chest/Abdomen/Pelvis CT 09/12/25 08:10 IMPRESSION: CHEST- 1. No acute abnormality, other than bibasilar atelectasis. ABDOMEN/PELVIS- 1. Gastric ulcer and/or gastritis. Possibility of microperforation given organized perihepatic ascites and/or fluid collection or abscess. 2. Gallstone with nonspecific gallbladder wall thickening. If concern for cholecystitis, consider ultrasound and/or HIDA scan. Abdomen Ultrasound 09/12/25 09:33 IMPRESSION: 1. Consistent with acute cholecystitis. Upper GI Series 09/13/25 09:19 IMPRESSION: 1. Exam limited as above. No large ulceration, perforation or extravasation of contrast 2. Tertiary contractions in the esophagus suggest mild esophagitis; small hiatal hernia also noted. 3. Recommend follow-up KUB in 4 to 6 hours to evaluate enteric transit of contrast. Chest X-Ray 09/16/25 12:25 Impression: CHF. Findings are progressed compared to the previous study Chest CTA 09/16/25 14:24 IMPRESSION: 1. No pulmonary emboli or thoracic aortic aneurysm/dissection. 2. Small to moderate sized bilateral pleural effusions with increased atelectatic changes and some air bronchograms which could be associated with developing pneumonia. 3. Prominent pulmonary arteries suggesting pulmonary arterial hypertension. Catheter Placement CT 09/17/25 14:12 IMPRESSION: 1. Successful CT-guided left perihepatic abscess drainage catheter placement. 2. 40 mL fluid was sent for aerobic and anaerobic cultures. 3. The catheter will be managed by Dr. Brady. Labs Labs: Laboratory Results - last 24 hr 09/18/25 04:58 WBC 12.3 H RBC 5.30 Hgb 15.1 Hct 49.6 MCV 93.6 MCH 28.5 MCHC 30.4 L RDW 14.1 Plt Count 256 MPV 9.0 Sodium 136 L Potassium 3.8 Chloride 94 L Carbon Dioxide > 40 H Anion Gap BUN 17 Creatinine 0.91 Estim Creat Clear Calc 111 Estimated GFR > 60 Glucose 125 H Calcium 7.9 L Total Bilirubin 1.1 AST 30 ALT 13 Alkaline Phosphatase 223 H Total Protein 6.8 Albumin 3.1 L
[2025-09-18 14:00] VITALS: BP 140/68; PULSE 87; RESP 18; TEMP 36.4; O2SAT 93
--- NOTE | 2025-09-18 14:19 | P.PNIM_ITS ---
Assessment and Plan Assessment and Plan (1) Sepsis: Code(s): A41.9 - Sepsis, unspecified organism Status: Resolved Plan Sepsis From acute cholecystitis and gastric ulcer with possible perforation Tachycardia, tachypnea resolving. WBC 20.[address] showed gastric ulcer with possible perforation Liver Us showed acute cholecystitis Underwent 09/13 Laparoscopic subtotal cholecystectomy,Laparoscopic drainage of intra-abdominal abscess, and Laparoscopic wedge liver biopsy Blood culture negative Continue Zosyn and PPI IV, IVF Gen surgery and GI consulted Underwent CT-guided drain placement on 09/17 Drain culture pending Gastric ulcer with possible perforation CT AP reviewed GI reviewed and noted that CT finding is incidental and recommended outpatient follow after management for Acute cholecystitis GI eval noted Upper GI series 09/13/2025 with no large ulceration perforation or extravasation of contrast. Findings of mild esophagitis. Acute cholecystitis US liver reviewed Continue Zosyn and IVF S/P Laparoscopic subtotal cholecystectomy,Laparoscopic drainage of intra- abdominal abscess, and Laparoscopic wedge liver biopsy Gen surgery consulted Acute hypoxic respiratory failure needing oxygen supplementation: Patient Noted to have increased work of breathing Chest x-ray shows CHF. CTA with no PE. Small to moderate-sized bilateral pleural effusion prominent pulmonary artery suggesting pulmonary artery hypertension Echocardiogram performed 2022 shows ejection fraction 60-65% but evidence of diastolic dysfunction Repeated echocardiogram shows no evidence of CHF and BNP 205 Currently on 3 L saturating around 93% Lymphedema with venous ulcer Continue compression therapy Wound care following DVT prophylaxis on Sq Lovenox Full code SDM: Zulma Leigh Subjective Date/time seen: 09/18/25 14:19 Interval history: 09/16:Surgery team was concerned about work of breathing. Patient is currently on 2 L and saturating around 93%. Chest x-ray shows signs of CHF. His echocardiogram performed 2022 shows ejection fraction 60-65%. Left ventricular diastolic function is abnormal. Will repeat echo and ordered BNP. Ordered a CTA to rule out PE. 09/17: Patient underwent CT-guided drain placement. Patient reports he feels lot better after the drain placement. CTA shows no evidence of pulmonary embolism. Small to moderate size bilateral pleural effusion with increased atelectatic changes and some air bronchograms which could be associated with developing pneumonia. No evidence of pulmonary hypertension. BNP 205. Left ventricular systolic function 50-60% and no evidence of diastolic dysfunction. Patient is currently on Zosyn. 09/18: No overnight events. Feeling better. Shortness of breath has improved. Review of Systems Review of Systems: All other systems were reviewed and negative except as noted in the HPI above Exam Narrative: General: alert and comfortable Eyes: EOMI, PERRLA ENNT External ears normal, Neck is supple, no masses, Respiratory systems: Clear to auscultation Cardiovascular S1, S2, normal rhythm, no murmur, rub, or gallop; no thrill or palpable murmurs on palpation. Gastrointestinal: soft, distended, drain in place, abdomen with no masses; BS present Skin: non pitting leg edema, with venous ulcer Musculoskeletal: no abnormality and no tenderness, normal ROM Neurologic: Alert and oriented x3, non focal Mental Status Exam: normal affect Objective Data Vital Signs Vital Signs: Vital Signs - 24 hr 09/17/25 20:58 09/17/25 21:48 09/18/25 06:00 Temperature 97.2 F L 97.9 F Pulse Rate 88 83 Respiratory Rate 16 16 Blood Pressure 158/57 H 144/72 H Pulse Oximetry 91 94 96 Oxygen Delivery Nasal Cannula Oxygen Flow Rate 2 Fraction of Inspired Oxygen 09/18/25 08:00 09/18/25 14:00 Temperature 97.6 F Pulse Rate 83 87 Respiratory Rate 16 18 Blood Pressure 140/68 Pulse Oximetry 96 93 Oxygen Delivery Nasal Cannula Oxygen Flow Rate 2 Fraction of Inspired Oxygen 21 Intake/Output Intake/Output: Intake & Output 09/15/25 09/16/25 09/17/25 09/18/25 23:59 23:59 23:59 23:59 Intake Total 2118 1700 926.7 950 Output Total 1920 1400 1400 530 Balance 198 300 -473.3 420 Meds/Results Medications: Active Medications Generic Name Dose Route Start Last Admin Trade Name Freq PRN Reason Stop Dose Admin Hydrocodone Bitart/Acetaminophen 1 tab 09/13/25 18:34 09/16/25 21:26 Hydrocodone/Acetaminophen (*Crx) 5-325 Mg Tablet PO 1 tab Q4H PRN Administration Pain Rated 4-6 Hydrocodone Bitart/Acetaminophen 1 tab 09/13/25 18:34 Hydrocodone/Acetaminophen (*Crx) 10-325 Mg Tablet PO Q4H PRN Pain Rated 7-10 Albuterol/Ipratropium 3 ml 09/15/25 04:05 09/15/25 23:32 Ipratropium 0.5 Mg/Albuterol Sulfate 2.5 Mg (Base) Ampul.Neb 3 Ml INHALATION 3 ml Q6HRT PRN Administration Shortness Of Breath Enoxaparin Sodium 40 mg 09/13/25 09:00 09/16/25 09:18 Enoxaparin 40 Mg/0.4 Ml Syringe SUB-Q 40 mg On Hold: 09/16/25 17:17 DAILY MACK Administration Ibuprofen 800 mg in 200 mls @ 400 mls/hr 09/13/25 18:34 Caldolor 800 Mg/200 Ml IVPB Q6H PRN Breakthrough Pain Rated 1-3 or NPO Piperacillin Sod/Tazobactam 50 mls @ 100 mls/hr 09/13/25 20:00 09/18/25 13:29 Sod 3.375 gm/ Sodium Chloride IVPB 100 mls/hr Q6H MACK Administration Morphine Sulfate 2 mg 09/13/25 18:34 09/13/25 20:18 Morphine Sulfate (*Crx) 4 Mg/Ml Inj IV PUSH 2 mg Q2H PRN Administration Breakthrough Pain Rated 4-6 or NPO Morphine Sulfate 4 mg 09/13/25 18:34 09/14/25 06:33 Morphine Sulfate (*Crx) 4 Mg/Ml Inj IV PUSH 4 mg Q2H PRN Administration Breakthrough Pain Rated 7-10 or NPO Naloxone HCl 0.1 mg 09/13/25 18:34 Naloxone Hcl 0.4 Mg/Ml Vial IV PUSH Q2M PRN Opiate Reversal Ondansetron HCl 4 mg 09/12/25 09:08 Ondansetron Inj 4 Mg/2 Ml Vial IV PUSH Q4H PRN Nausea Pantoprazole Sodium 40 mg 09/13/25 20:00 09/18/25 09:01 Pantoprazole Sodium Iv 40 Mg Vial IV PUSH 40 mg BID MACK Administration Radiology Results: ITS Impressions Chest/Abdomen/Pelvis CT 09/12/25 08:10 IMPRESSION: CHEST- 1. No acute abnormality, other than bibasilar atelectasis. ABDOMEN/PELVIS- 1. Gastric ulcer and/or gastritis. Possibility of microperforation given organized perihepatic ascites and/or fluid collection or abscess. 2. Gallstone with nonspecific gallbladder wall thickening. If concern for cholecystitis, consider ultrasound and/or HIDA scan. Abdomen Ultrasound 09/12/25 09:33 IMPRESSION: 1. Consistent with acute cholecystitis. Upper GI Series 09/13/25 09:19 IMPRESSION: 1. Exam limited as above. No large ulceration, perforation or extravasation of contrast 2. Tertiary contractions in the esophagus suggest mild esophagitis; small hiatal hernia also noted. 3. Recommend follow-up KUB in 4 to 6 hours to evaluate enteric transit of contrast. Chest X-Ray 09/16/25 12:25 Impression: CHF. Findings are progressed compared to the previous study Chest CTA 09/16/25 14:24 IMPRESSION: 1. No pulmonary emboli or thoracic aortic aneurysm/dissection. 2. Small to moderate sized bilateral pleural effusions with increased atelectatic changes and some air bronchograms which could be associated with developing pneumonia. 3. Prominent pulmonary arteries suggesting pulmonary arterial hypertension. Catheter Placement CT 09/17/25 14:12 IMPRESSION: 1. Successful CT-guided left perihepatic abscess drainage catheter placement. 2. 40 mL fluid was sent for aerobic and anaerobic cultures. 3. The catheter will be managed by Dr. Brady. Labs Labs: Laboratory Results - last 24 hr 09/18/25 04:58 WBC 12.3 H RBC 5.30 Hgb 15.1 Hct 49.6 MCV 93.6 MCH 28.5 MCHC 30.4 L RDW 14.1 Plt Count 256 MPV 9.0 Sodium 136 L Potassium 3.8 Chloride 94 L Carbon Dioxide > 40 H Anion Gap BUN 17 Creatinine 0.91 Estim Creat Clear Calc 111 Estimated GFR > 60 Glucose 125 H Calcium 7.9 L Total Bilirubin 1.1 AST 30 ALT 13 Alkaline Phosphatase 223 H Total Protein 6.8 Albumin 3.1 L Hospitalist [facility] Advance Care Plan I have confirmed that the patient's Advanced Care Plan is present, code status is documented, or surrogate decision maker is listed in patient medical record.: Yes Medication Reconciliation I have utilized all available resources to obtain, update and review the patients current medications (includes all prescriptions, OTC, herbals, cannabis, and nutritional supplements).: Yes
[2025-09-18 20:00] VITALS: PULSE 87; RESP 18; O2SAT 93
[2025-09-18 21:10] VITALS: BP 159/73; PULSE 82; RESP 17; TEMP 36.2; O2SAT 99
[2025-09-19] MEDS: PIPERACILLIN/TAZOBACTAM SOD 3.375 GM in SODIUM CHLORIDE 0.9% IV 50 ML 100 ML IVPB ×4 (01:30→21:00)
[2025-09-19 04:50] VITALS: BP 127/72; PULSE 81; RESP 16; TEMP 35.8; O2SAT 98
[2025-09-19 06:34] LABS: Hematocrit 45.2 % (42.0-52.0); Hemoglobin 13.9 g/dL (14.0-18.0); Immature Granulocyte Percent A 3.0 % (0-0.5); Lymphocytes Absolute Auto 0.84 K/mm3 (0.9-3.2); Mean Corpuscular HGB Conc 30.8 g/dl (32-36); Mean Corpuscular Hemoglobin 28.4 pg (26-34); Mean Corpuscular Volume 92.4 fl (80-100); Nucleated Red Blood Cells Absolute Auto 0.000 K/mm3 (0.0-0.012); Nucleated Red Blood Cells Perc 0.0 % (0.0-0.2); Platelet Count Result 233 k/mm3 (150-375); Red Blood Count 4.89 M/mm3 (4.6-6.20); White Blood Count 12.2 K/mm3 (4.5-10.0)
[2025-09-19 06:55] LABS: Alanine Aminotransferase 12 U/L (6-50); Albumin Level 3.0 g/dL (3.5-5.1); Alkaline Phosphatase 243 U/L (38-126); Anion Gap 1 mmol/L (4-12); Aspartate Amino Transferase 30 U/L (17-59); Bilirubin,Total 1.1 mg/dL (0.2-1.3); Blood Urea Nitrogen 17 mg/dL (9-20); Calcium 8.0 mg/dL (8.4-10.2); Carbon Dioxide 37 mmol/L (22-30); Chloride 97 mmol/L (98-107); Estimated CRCL calculation 117 ml/min; Estimated Glomerular Filt Rate > 60; Glucose 119 mg/dL (65-110); Magnesium 2.1 mg/dL (1.6-2.3); Potassium 4.2 mmol/L (3.4-5.0); Sodium 135 mmol/L (137-145); Total Protein 6.5 g/dL (6.3-8.2)
[2025-09-19 08:00] VITALS: O2SAT 98
--- NOTE | 2025-09-19 08:46 | PM.PNGS ---
Progress Note: A&P Assessment and Plan (1) Intra-abdominal abscess: Code(s): K65.1 - Peritoneal abscess Status: Acute Assessment and Plan: doing well, continue drain and antibiotics Subjective Subjective Date/Time Seen: 09/19/25 08:46 Interval history: feels good, mild epigastric pain Review of Systems Review of Systems: All systems reviewed & are unremarkable except as noted in HPI and below Exam Const: General: cooperative, comfortable, no acute distress and obese Resp: Auscultation: clear to auscultation bilaterally Cardio: Rate: regular rate Rhythm: regular rhythm GI: Inspection: normal to inspection, distended and incision GI Palp: Yes abdominal tenderness Other: HAYDEE drain with serous drainage, perc drain with moderate thin serous drainage Objective Data Vital Signs Vital Signs: Vital Signs - 24 hr 09/18/25 14:00 09/18/25 20:00 09/18/25 21:10 Temperature 36.4 C 36.2 C L Pulse Rate 87 87 82 Respiratory Rate 18 18 17 Blood Pressure 140/68 159/73 H Pulse Oximetry 93 93 99 Oxygen Delivery Nasal Cannula Oxygen Flow Rate 2 Fraction of Inspired Oxygen 09/19/25 04:50 Temperature 35.8 C L Pulse Rate 81 Respiratory Rate 16 Blood Pressure 127/72 Pulse Oximetry 98 Oxygen Delivery Oxygen Flow Rate Fraction of Inspired Oxygen Intake/Output Intake/Output: Intake & Output 09/16/25 09/17/25 09/18/25 09/19/25 23:59 23:59 23:59 23:59 Intake Total 1700 926.7 1290 290 Output Total 1400 1400 1095 875 Balance 300 -473.3 195 -585 Meds/Results Medications: Active Medications Generic Name Dose Route Start Last Admin Trade Name Freq PRN Reason Stop Dose Admin Hydrocodone Bitart/Acetaminophen 1 tab 09/13/25 18:34 09/16/25 21:26 Hydrocodone/Acetaminophen (*Crx) 5-325 Mg Tablet PO 1 tab Q4H PRN Administration Pain Rated 4-6 Hydrocodone Bitart/Acetaminophen 1 tab 09/13/25 18:34 Hydrocodone/Acetaminophen (*Crx) 10-325 Mg Tablet PO Q4H PRN Pain Rated 7-10 Albuterol/Ipratropium 3 ml 09/15/25 04:05 09/15/25 23:32 Ipratropium 0.5 Mg/Albuterol Sulfate 2.5 Mg (Base) Ampul.Neb 3 Ml INHALATION 3 ml Q6HRT PRN Administration Shortness Of Breath Enoxaparin Sodium 40 mg 09/13/25 09:00 09/16/25 09:18 Enoxaparin 40 Mg/0.4 Ml Syringe SUB-Q 40 mg On Hold: 09/16/25 17:17 DAILY MACK Administration Ibuprofen 800 mg in 200 mls @ 400 mls/hr 09/13/25 18:34 Caldolor 800 Mg/200 Ml IVPB Q6H PRN Breakthrough Pain Rated 1-3 or NPO Piperacillin Sod/Tazobactam 50 mls @ 100 mls/hr 09/13/25 20:00 09/19/25 02:00 Sod 3.375 gm/ Sodium Chloride IVPB Infused Q6H MACK Infusion Morphine Sulfate 2 mg 09/13/25 18:34 09/13/25 20:18 Morphine Sulfate (*Crx) 4 Mg/Ml Inj IV PUSH 2 mg Q2H PRN Administration Breakthrough Pain Rated 4-6 or NPO Morphine Sulfate 4 mg 09/13/25 18:34 09/14/25 06:33 Morphine Sulfate (*Crx) 4 Mg/Ml Inj IV PUSH 4 mg Q2H PRN Administration Breakthrough Pain Rated 7-10 or NPO Naloxone HCl 0.1 mg 09/13/25 18:34 Naloxone Hcl 0.4 Mg/Ml Vial IV PUSH Q2M PRN Opiate Reversal Ondansetron HCl 4 mg 09/12/25 09:08 Ondansetron Inj 4 Mg/2 Ml Vial IV PUSH Q4H PRN Nausea Pantoprazole Sodium 40 mg 09/13/25 20:00 09/18/25 16:47 Pantoprazole Sodium Iv 40 Mg Vial IV PUSH 40 mg BID MACK Administration Radiology Results: ITS Impressions Chest/Abdomen/Pelvis CT 09/12/25 08:10 IMPRESSION: CHEST- 1. No acute abnormality, other than bibasilar atelectasis. ABDOMEN/PELVIS- 1. Gastric ulcer and/or gastritis. Possibility of microperforation given organized perihepatic ascites and/or fluid collection or abscess. 2. Gallstone with nonspecific gallbladder wall thickening. If concern for cholecystitis, consider ultrasound and/or HIDA scan. Abdomen Ultrasound 09/12/25 09:33 IMPRESSION: 1. Consistent with acute cholecystitis. Upper GI Series 09/13/25 09:19 IMPRESSION: 1. Exam limited as above. No large ulceration, perforation or extravasation of contrast 2. Tertiary contractions in the esophagus suggest mild esophagitis; small hiatal hernia also noted. 3. Recommend follow-up KUB in 4 to 6 hours to evaluate enteric transit of contrast. Chest X-Ray 09/16/25 12:25 Impression: CHF. Findings are progressed compared to the previous study Chest CTA 09/16/25 14:24 IMPRESSION: 1. No pulmonary emboli or thoracic aortic aneurysm/dissection. 2. Small to moderate sized bilateral pleural effusions with increased atelectatic changes and some air bronchograms which could be associated with developing pneumonia. 3. Prominent pulmonary arteries suggesting pulmonary arterial hypertension. Catheter Placement CT 09/17/25 14:12 IMPRESSION: 1. Successful CT-guided left perihepatic abscess drainage catheter placement. 2. 40 mL fluid was sent for aerobic and anaerobic cultures. 3. The catheter will be managed by Dr. Brady. Labs Labs: Laboratory Results - last 24 hr 09/19/25 06:12 WBC 12.2 H RBC 4.89 Hgb 13.9 L Hct 45.2 MCV 92.4 MCH 28.4 MCHC 30.8 L RDW 13.9 Plt Count 233 MPV 9.2 Immature Gran % (Auto) 3.0 H Neut % (Auto) 80.1 H Lymph % (Auto) 6.9 L [place] % (Auto) 7.4 Eos % (Auto) 1.8 Baso % (Auto) 0.8 Lymph # (Auto) 0.84 L [place] # (Auto) 0.9 H Eos # (Auto) 0.2 Baso # (Auto) 0.1 Abs Immat Gran (auto) 0.36 H Absolute Neuts (auto) 9.8 H Absolute Nucleated RBC 0.000 Nucleated RBC % 0.0 Sodium 135 L Potassium 4.2 Chloride 97 L Carbon Dioxide 37 H Anion Gap 1 L BUN 17 Creatinine 0.87 Estim Creat Clear Calc 117 Estimated GFR > 60 Glucose 119 H Calcium 8.0 L Magnesium 2.1 Total Bilirubin 1.1 AST 30 ALT 12 Alkaline Phosphatase 243 H Total Protein 6.5 Albumin 3.0 L
[2025-09-19] MEDS: PANTOPRAZOLE SODIUM IV 40 MG VIAL IV PUSH ×2 (09:05→18:01)
--- NOTE | 2025-09-19 12:04 | PM.IMPN2 ---
Assessment and Plan Assessment and Plan (1) Sepsis: Code(s): A41.9 - Sepsis, unspecified organism Status: Resolved Plan Sepsis From acute cholecystitis and gastric ulcer with possible perforation Tachycardia, tachypnea resolving. WBC 20.[address] showed gastric ulcer with possible perforation Liver Us showed acute cholecystitis Underwent 09/13 Laparoscopic subtotal cholecystectomy,Laparoscopic drainage of intra-abdominal abscess, and Laparoscopic wedge liver biopsy Blood culture negative Continue Zosyn and PPI IV, IVF Gen surgery and GI consulted Underwent CT-guided drain placement on 09/17 Drain culture pending Gastric ulcer with possible perforation CT AP reviewed GI reviewed and noted that CT finding is incidental and recommended outpatient follow after management for Acute cholecystitis GI eval noted Upper GI series 09/13/2025 with no large ulceration perforation or extravasation of contrast. Findings of mild esophagitis. Acute cholecystitis US liver reviewed Continue Zosyn and IVF S/P Laparoscopic subtotal cholecystectomy,Laparoscopic drainage of intra-abdominal abscess, and Laparoscopic wedge liver biopsy Gen surgery consulted Acute hypoxic respiratory failure needing oxygen supplementation: Patient Noted to have increased work of breathing Chest x-ray shows CHF. CTA with no PE. Small to moderate-sized bilateral pleural effusion prominent pulmonary artery suggesting pulmonary artery hypertension Echocardiogram performed 2022 shows ejection fraction 60-65% but evidence of diastolic dysfunction Repeated echocardiogram shows no evidence of CHF and BNP 205 Currently on 3 L saturating around 93% Lymphedema with venous ulcer Continue compression therapy Wound care following DVT prophylaxis on Sq Lovenox Full code SDM: Zulma Leigh Subjective Date/time seen: 09/19/25 12:04 Interval history: Patient was seen during the morning rounds today. Patient is feeling slightly better. No shortness breath or chest pain. Review of Systems Review of Systems: All other systems were reviewed and negative except as noted in the HPI above Exam Narrative: General: alert and comfortable Eyes: EOMI, PERRLA ENNT External ears normal, Neck is supple, no masses, Respiratory systems: Clear to auscultation Cardiovascular S1, S2, normal rhythm, no murmur, rub, or gallop; no thrill or palpable murmurs on palpation. Gastrointestinal: soft, distended, drain in place, abdomen with no masses; BS present Skin: non pitting leg edema, with venous ulcer Musculoskeletal: no abnormality and no tenderness, normal ROM Neurologic: Alert and oriented x3, non focal Mental Status Exam: normal affect Objective Data Vital Signs Vital Signs: Vital Signs - 24 hr 09/18/25 14:00 09/18/25 20:00 09/18/25 21:10 Temperature 36.4 C 36.2 C L Pulse Rate 87 87 82 Respiratory Rate 18 18 17 Blood Pressure 140/68 159/73 H Pulse Oximetry 93 93 99 Oxygen Delivery Nasal Cannula Oxygen Flow Rate 2 Fraction of Inspired Oxygen 21 09/19/25 04:50 09/19/25 08:00 Temperature 35.8 C L Pulse Rate 81 Respiratory Rate 16 Blood Pressure 127/72 Pulse Oximetry 98 98 Oxygen Delivery Nasal Cannula Oxygen Flow Rate 2 Fraction of Inspired Oxygen 21 Intake/Output Intake/Output: Intake & Output 09/16/25 09/17/25 09/18/25 09/19/25 23:59 23:59 23:59 23:59 Intake Total 1700 926.7 1290 890 Output Total 1400 1400 1095 1250 Balance 300 -473.3 195 -360 Meds/Results Medications: Active Medications Generic Name Dose Route Start Last Admin Trade Name Freq PRN Reason Stop Dose Admin Hydrocodone Bitart/Acetaminophen 1 tab 09/13/25 18:34 09/16/25 21:26 Hydrocodone/Acetaminophen (*Crx) 5-325 Mg Tablet PO 1 tab Q4H PRN Administration Pain Rated 4-6 Hydrocodone Bitart/Acetaminophen 1 tab 09/13/25 18:34 Hydrocodone/Acetaminophen (*Crx) 10-325 Mg Tablet PO Q4H PRN Pain Rated 7-10 Albuterol/Ipratropium 3 ml 09/15/25 04:05 09/15/25 23:32 Ipratropium 0.5 Mg/Albuterol Sulfate 2.5 Mg (Base) Ampul.Neb 3 Ml INHALATION 3 ml Q6HRT PRN Administration Shortness Of Breath Enoxaparin Sodium 40 mg 09/13/25 09:00 09/16/25 09:18 Enoxaparin 40 Mg/0.4 Ml Syringe SUB-Q 40 mg On Hold: 09/16/25 17:17 DAILY MACK Administration Ibuprofen 800 mg in 200 mls @ 400 mls/hr 09/13/25 18:34 Caldolor 800 Mg/200 Ml IVPB Q6H PRN Breakthrough Pain Rated 1-3 or NPO Piperacillin Sod/Tazobactam 50 mls @ 100 mls/hr 09/13/25 20:00 09/19/25 09:05 Sod 3.375 gm/ Sodium Chloride IVPB 100 mls/hr Q6H MACK Administration Morphine Sulfate 2 mg 09/13/25 18:34 09/13/25 20:18 Morphine Sulfate (*Crx) 4 Mg/Ml Inj IV PUSH 2 mg Q2H PRN Administration Breakthrough Pain Rated 4-6 or NPO Morphine Sulfate 4 mg 09/13/25 18:34 09/14/25 06:33 Morphine Sulfate (*Crx) 4 Mg/Ml Inj IV PUSH 4 mg Q2H PRN Administration Breakthrough Pain Rated 7-10 or NPO Naloxone HCl 0.1 mg 09/13/25 18:34 Naloxone Hcl 0.4 Mg/Ml Vial IV PUSH Q2M PRN Opiate Reversal Ondansetron HCl 4 mg 09/12/25 09:08 Ondansetron Inj 4 Mg/2 Ml Vial IV PUSH Q4H PRN Nausea Pantoprazole Sodium 40 mg 09/13/25 20:00 09/19/25 09:05 Pantoprazole Sodium Iv 40 Mg Vial IV PUSH 40 mg BID MACK Administration Radiology Results: ITS Impressions Chest/Abdomen/Pelvis CT 09/12/25 08:10 IMPRESSION: CHEST- 1. No acute abnormality, other than bibasilar atelectasis. ABDOMEN/PELVIS- 1. Gastric ulcer and/or gastritis. Possibility of microperforation given organized perihepatic ascites and/or fluid collection or abscess. 2. Gallstone with nonspecific gallbladder wall thickening. If concern for cholecystitis, consider ultrasound and/or HIDA scan. Abdomen Ultrasound 09/12/25 09:33 IMPRESSION: 1. Consistent with acute cholecystitis. Upper GI Series 09/13/25 09:19 IMPRESSION: 1. Exam limited as above. No large ulceration, perforation or extravasation of contrast 2. Tertiary contractions in the esophagus suggest mild esophagitis; small hiatal hernia also noted. 3. Recommend follow-up KUB in 4 to 6 hours to evaluate enteric transit of contrast. Chest X-Ray 09/16/25 12:25 Impression: CHF. Findings are progressed compared to the previous study Chest CTA 09/16/25 14:24 IMPRESSION: 1. No pulmonary emboli or thoracic aortic aneurysm/dissection. 2. Small to moderate sized bilateral pleural effusions with increased atelectatic changes and some air bronchograms which could be associated with developing pneumonia. 3. Prominent pulmonary arteries suggesting pulmonary arterial hypertension. Catheter Placement CT 09/17/25 14:12 IMPRESSION: 1. Successful CT-guided left perihepatic abscess drainage catheter placement. 2. 40 mL fluid was sent for aerobic and anaerobic cultures. 3. The catheter will be managed by Dr. Brady. Labs Labs: Laboratory Results - last 24 hr 09/19/25 06:12 WBC 12.2 H RBC 4.89 Hgb 13.9 L Hct 45.2 MCV 92.4 MCH 28.4 MCHC 30.8 L RDW 13.9 Plt Count 233 MPV 9.2 Immature Gran % (Auto) 3.0 H Neut % (Auto) 80.1 H Lymph % (Auto) 6.9 L [place] % (Auto) 7.4 Eos % (Auto) 1.8 Baso % (Auto) 0.8 Lymph # (Auto) 0.84 L [place] # (Auto) 0.9 H Eos # (Auto) 0.2 Baso # (Auto) 0.1 Abs Immat Gran (auto) 0.36 H Absolute Neuts (auto) 9.8 H Absolute Nucleated RBC 0.000 Nucleated RBC % 0.0 Sodium 135 L Potassium 4.2 Chloride 97 L Carbon Dioxide 37 H Anion Gap 1 L BUN 17 Creatinine 0.87 Estim Creat Clear Calc 117 Estimated GFR > 60 Glucose 119 H Calcium 8.0 L Magnesium 2.1 Total Bilirubin 1.1 AST 30 ALT 12 Alkaline Phosphatase 243 H Total Protein 6.5 Albumin 3.0 L
[2025-09-19 14:00] VITALS: BP 154/71; PULSE 78; RESP 16; TEMP 36.2; O2SAT 96
[2025-09-19 19:48] VITALS: BP 152/70; PULSE 82; RESP 16; TEMP 36.2; O2SAT 94
[2025-09-19 20:00] VITALS: O2SAT 98
[2025-09-20] MEDS: PIPERACILLIN/TAZOBACTAM SOD 3.375 GM in SODIUM CHLORIDE 0.9% IV 50 ML 100 ML IVPB ×2 (03:00→08:57)
[2025-09-20 06:19] VITALS: BP 136/67; PULSE 82; RESP 17; TEMP 36.2; O2SAT 93
[2025-09-20] MEDS: PANTOPRAZOLE SODIUM IV 40 MG VIAL IV PUSH (09:02)
--- NOTE | 2025-09-20 12:26 | P.PNIM_ITS ---
Assessment and Plan Assessment and Plan (1) Sepsis: Code(s): A41.9 - Sepsis, unspecified organism Status: Resolved Plan Sepsis From acute cholecystitis and gastric ulcer with possible perforation Tachycardia, tachypnea resolving. WBC 20.[address] showed gastric ulcer with possible perforation Liver Us showed acute cholecystitis Underwent 09/13 Laparoscopic subtotal cholecystectomy,Laparoscopic drainage of intra-abdominal abscess, and Laparoscopic wedge liver biopsy Blood culture negative Continue Zosyn and PPI IV, IVF Gen surgery and GI consulted Underwent CT-guided drain placement on 09/17 Drain culture pending Gastric ulcer with possible perforation CT AP reviewed GI reviewed and noted that CT finding is incidental and recommended outpatient follow after management for Acute cholecystitis GI eval noted Upper GI series 09/13/2025 with no large ulceration perforation or extravasation of contrast. Findings of mild esophagitis. Acute cholecystitis US liver reviewed Continue Zosyn and IVF S/P Laparoscopic subtotal cholecystectomy,Laparoscopic drainage of intra- abdominal abscess, and Laparoscopic wedge liver biopsy Gen surgery consulted Acute hypoxic respiratory failure needing oxygen supplementation: Patient Noted to have increased work of breathing Chest x-ray shows CHF. CTA with no PE. Small to moderate-sized bilateral pleural effusion prominent pulmonary artery suggesting pulmonary artery hypertension Echocardiogram performed 2022 shows ejection fraction 60-65% but evidence of diastolic dysfunction Repeated echocardiogram shows no evidence of CHF and BNP 205 Currently on 3 L saturating around 93% Lymphedema with venous ulcer Continue compression therapy Wound care following DVT prophylaxis on Sq Lovenox Full code SDM: Zulma Leigh Subjective Date/time seen: 09/20/25 12:26 Interval history: Patient was seen during the morning rounds today. No new complaints Patient is feeling slightly better. No shortness breath or chest pain. Review of Systems Review of Systems: All other systems were reviewed and negative except as noted in the HPI above Exam Narrative: General: alert and comfortable Eyes: EOMI, PERRLA ENNT External ears normal, Neck is supple, no masses, Respiratory systems: Clear to auscultation Cardiovascular S1, S2, normal rhythm, no murmur, rub, or gallop; no thrill or palpable murmurs on palpation. Gastrointestinal: soft, distended, drain in place, abdomen with no masses; BS present Skin: non pitting leg edema, with venous ulcer Musculoskeletal: no abnormality and no tenderness, normal ROM Neurologic: Alert and oriented x3, non focal Mental Status Exam: normal affect Objective Data Vital Signs Vital Signs: Vital Signs - 24 hr 09/19/25 14:00 09/19/25 19:48 09/19/25 20:00 Temperature 36.2 C L 36.2 C L Pulse Rate 78 82 Respiratory Rate 16 16 Blood Pressure 154/71 H 152/70 H Pulse Oximetry 96 94 98 Oxygen Delivery Nasal Cannula Oxygen Flow Rate 2 09/20/25 06:19 Temperature 36.2 C L Pulse Rate 82 Respiratory Rate 17 Blood Pressure 136/67 Pulse Oximetry 93 Oxygen Delivery Oxygen Flow Rate Intake/Output Intake/Output: Intake & Output 09/17/25 09/18/25 09/19/25 09/20/25 23:59 23:59 23:59 23:59 Intake Total 926.7 1290 1520 636 Output Total 1400 1095 1700 1350 Balance -473.3 195 180 714 Meds/Results Medications: Active Medications Generic Name Dose Route Start Last Admin Trade Name Freq PRN Reason Stop Dose Admin Hydrocodone Bitart/Acetaminophen 1 tab 09/13/25 18:34 09/16/25 21:26 Hydrocodone/Acetaminophen (*Crx) 5-325 Mg Tablet PO 1 tab Q4H PRN Administration Pain Rated 4-6 Hydrocodone Bitart/Acetaminophen 1 tab 09/13/25 18:34 Hydrocodone/Acetaminophen (*Crx) 10-325 Mg Tablet PO Q4H PRN Pain Rated 7-10 Albuterol/Ipratropium 3 ml 09/15/25 04:05 09/15/25 23:32 Ipratropium 0.5 Mg/Albuterol Sulfate 2.5 Mg (Base) Ampul.Neb 3 Ml INHALATION 3 ml Q6HRT PRN Administration Shortness Of Breath Enoxaparin Sodium 40 mg 09/13/25 09:00 09/16/25 09:18 Enoxaparin 40 Mg/0.4 Ml Syringe SUB-Q 40 mg On Hold: 09/16/25 17:17 DAILY MACK Administration Ibuprofen 800 mg in 200 mls @ 400 mls/hr 09/13/25 18:34 Caldolor 800 Mg/200 Ml IVPB Q6H PRN Breakthrough Pain Rated 1-3 or NPO Piperacillin Sod/Tazobactam 50 mls @ 100 mls/hr 09/13/25 20:00 09/20/25 08:57 Sod 3.375 gm/ Sodium Chloride IVPB 100 mls/hr Q6H MACK Administration Morphine Sulfate 2 mg 09/13/25 18:34 09/13/25 20:18 Morphine Sulfate (*Crx) 4 Mg/Ml Inj IV PUSH 2 mg Q2H PRN Administration Breakthrough Pain Rated 4-6 or NPO Morphine Sulfate 4 mg 09/13/25 18:34 09/14/25 06:33 Morphine Sulfate (*Crx) 4 Mg/Ml Inj IV PUSH 4 mg Q2H PRN Administration Breakthrough Pain Rated 7-10 or NPO Naloxone HCl 0.1 mg 09/13/25 18:34 Naloxone Hcl 0.4 Mg/Ml Vial IV PUSH Q2M PRN Opiate Reversal Ondansetron HCl 4 mg 09/12/25 09:08 Ondansetron Inj 4 Mg/2 Ml Vial IV PUSH Q4H PRN Nausea Pantoprazole Sodium 40 mg 09/13/25 20:00 09/20/25 09:02 Pantoprazole Sodium Iv 40 Mg Vial IV PUSH 40 mg BID MACK Administration Radiology Results: ITS Impressions Chest/Abdomen/Pelvis CT 09/12/25 08:10 IMPRESSION: CHEST- 1. No acute abnormality, other than bibasilar atelectasis. ABDOMEN/PELVIS- 1. Gastric ulcer and/or gastritis. Possibility of microperforation given organized perihepatic ascites and/or fluid collection or abscess. 2. Gallstone with nonspecific gallbladder wall thickening. If concern for cholecystitis, consider ultrasound and/or HIDA scan. Abdomen Ultrasound 09/12/25 09:33 IMPRESSION: 1. Consistent with acute cholecystitis. Upper GI Series 09/13/25 09:19 IMPRESSION: 1. Exam limited as above. No large ulceration, perforation or extravasation of contrast 2. Tertiary contractions in the esophagus suggest mild esophagitis; small hiatal hernia also noted. 3. Recommend follow-up KUB in 4 to 6 hours to evaluate enteric transit of contrast. Chest X-Ray 09/16/25 12:25 Impression: CHF. Findings are progressed compared to the previous study Chest CTA 09/16/25 14:24 IMPRESSION: 1. No pulmonary emboli or thoracic aortic aneurysm/dissection. 2. Small to moderate sized bilateral pleural effusions with increased atelectatic changes and some air bronchograms which could be associated with developing pneumonia. 3. Prominent pulmonary arteries suggesting pulmonary arterial hypertension. Catheter Placement CT 09/17/25 14:12 IMPRESSION: 1. Successful CT-guided left perihepatic abscess drainage catheter placement. 2. 40 mL fluid was sent for aerobic and anaerobic cultures. 3. The catheter will be managed by Dr. Brady.
--- NOTE | 2025-09-20 13:24 | P.DS_ITS ---
DS: Admitting Diagnosis Discharge Date 09/20/2025 Admitting Diagnosis Acute cholecystitis DS: Discharge Diagnosis Discharge Diagnosis (1) Sepsis: Code(s): A41.9 - Sepsis, unspecified organism Status: Resolved Plan Sepsis From acute cholecystitis and gastric ulcer with possible perforation Tachycardia, tachypnea resolving. WBC 20.[address] showed gastric ulcer with possible perforation Liver Us showed acute cholecystitis Underwent 09/13 Laparoscopic subtotal cholecystectomy,Laparoscopic drainage of intra-abdominal abscess, and Laparoscopic wedge liver biopsy Blood culture negative Continue Zosyn and PPI IV, IVF Gen surgery and GI consulted Underwent CT-guided drain placement on 09/17 Drain culture pending Gastric ulcer with possible perforation CT AP reviewed GI reviewed and noted that CT finding is incidental and recommended outpatient follow after management for Acute cholecystitis GI eval noted Upper GI series 09/13/2025 with no large ulceration perforation or extravasation of contrast. Findings of mild esophagitis. Acute cholecystitis US liver reviewed Continue Zosyn and IVF S/P Laparoscopic subtotal cholecystectomy,Laparoscopic drainage of intra- abdominal abscess, and Laparoscopic wedge liver biopsy Gen surgery consulted Acute hypoxic respiratory failure needing oxygen supplementation: Patient Noted to have increased work of breathing Chest x-ray shows CHF. CTA with no PE. Small to moderate-sized bilateral pleural effusion prominent pulmonary artery suggesting pulmonary artery hypertension Echocardiogram performed 2022 shows ejection fraction 60-65% but evidence of diastolic dysfunction Repeated echocardiogram shows no evidence of CHF and BNP 205 Currently on 3 L saturating around 93% Lymphedema with venous ulcer Continue compression therapy Wound care following DVT prophylaxis on Sq Lovenox Full code SDM: Zulma Leigh DS: Summary Hospital Course Reason for hospitalization: Acute cholecystitis Hospital Course: 60 years old male was admitted for possible acute cholecystitis. Patient patient was found to have sepsis. Patient was given IV antibiotics.. Surgery was consulted. Surgical intervention was performed and drains are placed in. Patient continued to improve treatment. Today patient is feeling better and was discharged home stable condition. Follow-up scheduled. Status at Discharge Cognitive/behavioral status at discharge: Stable Time Spent with Patient Time attestation: Total time spent providing and/or coordinating discharge services: 30 minute Exam Narrative: General: alert and comfortable Eyes: EOMI, PERRLA ENNT External ears normal, Neck is supple, no masses, Respiratory systems: Clear to auscultation Cardiovascular S1, S2, normal rhythm, no murmur, rub, or gallop; no thrill or palpable murmurs on palpation. Gastrointestinal: soft, distended, drain in place, abdomen with no masses; BS present Skin: non pitting leg edema, with venous ulcer Musculoskeletal: no abnormality and no tenderness, normal ROM Neurologic: Alert and oriented x3, non focal Mental Status Exam: normal affect DS: Data Data Completed and Pending Completed studies during hospitalization: Pending at discharge 09/13/25 15:47 Surgical [PTH] Routine Surgical [PTH] Routine Labs on day of discharge: Preliminary micro results at discharge 09/16/25 17:18 Blood Culture - Preliminary Blood 09/16/25 17:20 Blood Culture - Preliminary Blood Discharge Plan Discharge Attending physician on discharge: Chas Ramirez Consulting providers: Clinton Brady Discharging Clinician: Chas Ramirez Patient Disposition: Home Activity: as tolerated Diet: as tolerated and diabetic Discharge Instructions: No showering for 24 hours. Ok to remove dressings and shower tomorrow. No soaking in a bath or other body of water for one more week. No heavy lifting >10-15 pounds for two weeks or until cleared by Dr. Brady. Call the general surgery office at to schedule a follow up appointment in 2 weeks. Call the office or go to the ER if you experience any bleeding, vomiting, fever > 100 degrees, or pain out of proportion. Patient Instructions: Antibiotic Form Patient Language: [place] Stand Alone Forms: General Discharge Information Follow-up/Referrals: Clinton Brady DO [Physician, General Surgery] - Call for Appointment Referral Note: 2 weeks Discharge Medications: New amoxicillin-pot clavulanate 875-125 mg tablet 1 tablet PO Q12H Qty: 10 0RF esomeprazole magnesium [Nexium] 40 mg capsule,delayed release(DR/EC) 40 mg PO DAILY Qty: 30 0RF Continued ibuprofen-acetaminophen [Advil Dual Action] 125-250 mg tablet 1 tablet PO Q8H PRN (Reason: pain) Date of admission: 09/12/25 09:08 Primary Care Provider: Yinka Duval Admitting Provider: Ti Jay Attending physician on admission: Ti Jay Condition: Stable
--- NOTE | 2025-09-20 13:46 | PM.PNGS ---
Progress Note: A&P Assessment and Plan (1) Intra-abdominal abscess: Code(s): K65.1 - Peritoneal abscess Status: Acute Assessment and Plan: Patient continues to improve clinically. Tolerating diet without nausea or vomiting. Minimal pain - has not needed pain medication in 3 days. Ambulating well. No longer needing supplemental O2. Drains with minimal output. Both removed today. Surgically sstable for discharge with follow up in 2 weeks. Plan Discussed patient's case and plan of care with Dr. Brady. Subjective Subjective Date/Time Seen: 09/20/25 13:46 Patient reports: no new complaints, feels better, tolerating a regular diet, bowel movement and afebrile Interval history: Patient doing well today. No new complaints. Tolerating diet, having regular BMs, off of O2, drains functioning properly. Exam Const: General: comfortable and no acute distress GI: Inspection: non-distended GI Palp: Yes Soft to palpation, No Tenderness to palpation present (GI) and No Guarding due to palpation present (GI) Auscultation: normal bowel sounds Other: HAYDEE drain with minimal serous drainage in bulb. Percutaneous abscess drain with minimal clear yellow fluid. Objective Data Vital Signs Vital Signs: Vital Signs - 24 hr 09/19/25 14:00 09/19/25 19:48 09/19/25 20:00 Temperature 97.2 F L 97.1 F L Pulse Rate 78 82 Respiratory Rate 16 16 Blood Pressure 154/71 H 152/70 H Pulse Oximetry 96 94 98 Oxygen Delivery Nasal Cannula Oxygen Flow Rate 2 09/20/25 06:19 Temperature 97.1 F L Pulse Rate 82 Respiratory Rate 17 Blood Pressure 136/67 Pulse Oximetry 93 Oxygen Delivery Oxygen Flow Rate Intake/Output Intake/Output: Intake & Output 09/17/25 09/18/25 09/19/25 09/20/25 23:59 23:59 23:59 23:59 Intake Total 926.7 1290 1520 876 Output Total 1400 1095 1700 1350 Balance -473.3 195 -180 -474 Meds/Results Medications: Active Medications Generic Name Dose Route Start Last Admin Trade Name Freq PRN Reason Stop Dose Admin Hydrocodone Bitart/Acetaminophen 1 tab 09/13/25 18:34 09/16/25 21:26 Hydrocodone/Acetaminophen (*Crx) 5-325 Mg Tablet PO 1 tab Q4H PRN Administration Pain Rated 4-6 Hydrocodone Bitart/Acetaminophen 1 tab 09/13/25 18:34 Hydrocodone/Acetaminophen (*Crx) 10-325 Mg Tablet PO Q4H PRN Pain Rated 7-10 Albuterol/Ipratropium 3 ml 09/15/25 04:05 09/15/25 23:32 Ipratropium 0.5 Mg/Albuterol Sulfate 2.5 Mg (Base) Ampul.Neb 3 Ml INHALATION 3 ml Q6HRT PRN Administration Shortness Of Breath Enoxaparin Sodium 40 mg 09/13/25 09:00 09/16/25 09:18 Enoxaparin 40 Mg/0.4 Ml Syringe SUB-Q 40 mg On Hold: 09/16/25 17:17 DAILY MACK Administration Ibuprofen 800 mg in 200 mls @ 400 mls/hr 09/13/25 18:34 Caldolor 800 Mg/200 Ml IVPB Q6H PRN Breakthrough Pain Rated 1-3 or NPO Piperacillin Sod/Tazobactam 50 mls @ 100 mls/hr 09/13/25 20:00 09/20/25 08:57 Sod 3.375 gm/ Sodium Chloride IVPB 100 mls/hr Q6H MACK Administration Morphine Sulfate 2 mg 09/13/25 18:34 09/13/25 20:18 Morphine Sulfate (*Crx) 4 Mg/Ml Inj IV PUSH 2 mg Q2H PRN Administration Breakthrough Pain Rated 4-6 or NPO Morphine Sulfate 4 mg 09/13/25 18:34 09/14/25 06:33 Morphine Sulfate (*Crx) 4 Mg/Ml Inj IV PUSH 4 mg Q2H PRN Administration Breakthrough Pain Rated 7-10 or NPO Naloxone HCl 0.1 mg 09/13/25 18:34 Naloxone Hcl 0.4 Mg/Ml Vial IV PUSH Q2M PRN Opiate Reversal Ondansetron HCl 4 mg 09/12/25 09:08 Ondansetron Inj 4 Mg/2 Ml Vial IV PUSH Q4H PRN Nausea Pantoprazole Sodium 40 mg 09/13/25 20:00 09/20/25 09:02 Pantoprazole Sodium Iv 40 Mg Vial IV PUSH 40 mg BID MACK Administration Radiology Results: ITS Impressions Chest/Abdomen/Pelvis CT 09/12/25 08:10 IMPRESSION: CHEST- 1. No acute abnormality, other than bibasilar atelectasis. ABDOMEN/PELVIS- 1. Gastric ulcer and/or gastritis. Possibility of microperforation given organized perihepatic ascites and/or fluid collection or abscess. 2. Gallstone with nonspecific gallbladder wall thickening. If concern for cholecystitis, consider ultrasound and/or HIDA scan. Abdomen Ultrasound 09/12/25 09:33 IMPRESSION: 1. Consistent with acute cholecystitis. Upper GI Series 09/13/25 09:19 IMPRESSION: 1. Exam limited as above. No large ulceration, perforation or extravasation of contrast 2. Tertiary contractions in the esophagus suggest mild esophagitis; small hiatal hernia also noted. 3. Recommend follow-up KUB in 4 to 6 hours to evaluate enteric transit of contrast. Chest X-Ray 09/16/25 12:25 Impression: CHF. Findings are progressed compared to the previous study Chest CTA 09/16/25 14:24 IMPRESSION: 1. No pulmonary emboli or thoracic aortic aneurysm/dissection. 2. Small to moderate sized bilateral pleural effusions with increased atelectatic changes and some air bronchograms which could be associated with developing pneumonia. 3. Prominent pulmonary arteries suggesting pulmonary arterial hypertension. Catheter Placement CT 09/17/25 14:12 IMPRESSION: 1. Successful CT-guided left perihepatic abscess drainage catheter placement. 2. 40 mL fluid was sent for aerobic and anaerobic cultures. 3. The catheter will be managed by Dr. Brady.
[2025-09-20 13:49] VITALS: BP 141/58; PULSE 88; RESP 18; TEMP 36.6; O2SAT 97
== END 2025-09-20 15:10 | disposition home or self-care (01) | DRG 853 ==
LOC: ANHED 09:07 → ANHIMU 10:10 → ANH3MEDSUR 09-14 23:40
PROVIDERS: General Practice; Internal Medicine; Student in an Organized Health Care Education/Training Program; Surgery; Admitting Provider Internal Medicine; Emergency Provider Family Medicine; PCP Family Medicine; Visit Provider Internal Medicine
PROC: 0FT44ZZ Resection of Gallbladder, Percutaneous Endoscopic Approach (ICD-10-PCS; CPT 47562; principal; 2025-09-13 16:00)
DX: A41.9 Sepsis, unspecified organism (principal); J96.01 Acute respiratory failure with hypoxia; K65.1 Peritoneal abscess; K80.00 Calculus of gallbladder with acute cholecystitis without obstruction; Z68.43 Body mass index [BMI] 50.0-59.9, adult; K82.A2 Perforation of gallbladder in cholecystitis; I50.9 Heart failure, unspecified; I89.0 Lymphedema, not elsewhere classified; E66.01 Morbid (severe) obesity due to excess calories; E78.5 Hyperlipidemia, unspecified; E03.9 Hypothyroidism, unspecified; K29.70 Gastritis, unspecified, without bleeding
CPT/HCPCS: 36415; 36600; 49406; 71045; 71046; 71260; 71275; 74177; 74240; 76705; 80053; 80061; 81001; 82805; 82948; 83605; 83690; 83735; 83880; 84484; 85018; 85025; 85027; 85610; 85730; 87040; 87070; 87075; 87205; 88304; 88307; 88312; 88313; 93005; 94640; 94762; 96365; 99285; A9270; C1729; C1769; C8929; J0330; J0616; J1100; J1171; J1650; J1938; J2003; J2250; J2270; J2371; J2405; J2470; J2543; J2704; J3010; J7030; J7120; Q9957; Q9967